=== PATIENT | female | born 1960 | race Caucasian/White ===

== ENCOUNTER → 2021-10-14 10:29 | Outpatient (CLI) | payer MEDICARE, SELFPAY ==
--- NOTE | 2021-10-14 | CA_ITS ---
APPROVED REPORT Exam: Pharmacologic Technologist: Sandra Hunter, Ht: 5 ft 7 in Wt: 308 lbs BSA: 2.43 m2 HR: 56 bpm BP: 136/80 mmHg Rhythm: SINUS NOLA, PAC, 1.6 SEC SINUS PAUSE Indications: CP, ABN EKG Medical History Medical History: HTN Medications: Metoprolol,,,,, Trazadone,,,,, Gabapentin,,,,, HCTZ,,,,, Citalopram,,,,, Zolpidem,,,,, PolyethYLENE GLYCOL,,,,, Allergies: No known drug allergies Cardiac Risk Factors: HTN, , Smoking Stress Test Details Test: LEXISCAN HR Resting HR: 57 bpm Max Heart Rate (APMHR): 158.635033 bpm Max HR Achieved: 81 bpm Target HR (85% APMHR): 134.602167 bpm % of APMHR: 51.27 Recovery HR: 65 bpm BP Resting BP: 136/80 mmHg Max BP: 145/75 mmHg Recovery BP: 144.0/77.0 mmHg ECG Resting ECG: SINUS NOLA, PAC, 1.6 SEC SINUS PAUSE Clinical Exercise duration: 04:12 min Highest Stage Achieved: Stress ECG Conclusion PT HAD SOA, AND HEAD DISCOMFORT. OCC PAC. NS T WAVE CHANGES INFERIORLY AND LATERALLY. NON-DIAGNOSTIC LEXISCAN STRESS. MYOVIEW IMAGES REPORTED SEPARATELY. Electronically signed by : Frantz Bautista MD 10/15/2021 10:53:51
--- NOTE | 2021-10-14 10:31 | CA_ITS ---
APPROVED REPORT EXAM: Comprehensive 2D, Doppler, and color-flow Echocardiogram Pediatric Lpn: Velia Orta CRT Ht: 5 ft 7 in Wt: 308lbs BSA: 2.43 BP: 145/76 mmHg Indications: Abnormal ECG, Chest Pain, Obesity, Hypertension/HDD, TOREY, SMOKER 2D Dimensions LVOT 1.86 cm (M/F) 1.5-2.5 LA Volume 66.70 mL LA Volume Index 27.40 mL/m2 (M/F) 16-34 M-Mode Dimensions RVDd 2.63 cm (0.9-2.6) LA Diam 4.66 cm (1.9-4.0) LVDd 5.69 cm (3.5-5.7) Ao Diam 4.49 cm (2.0-3.7) LVDs 4.04 cm (3.5-5.7) IVSd 2.34 cm (0.6-1.1) PWd 1.44 cm (0.6-1.1) EF (Teich) 55.00% FS 29.00% EDV (Teich) 159.40 mL TAPSE 1.74 (<1.7) ESV (Teich) 71.70 mL LV Diastology E Decel Time 213.00 (160-240 msec) E/A Ratio 1.65 MED E' 6.10 (< 7 cm/sec) MED A' 6.40 cm/s E'/MED E' Ratio 17.41 (>14) LAT E' 12.20 (<10 cm/sec) LAT A' 11.30 cm/s E/LAT E' Ratio 8.70 (>14) Aortic Valve AO Peak GR. 9.70 mmHg Mitral Valve MV E Max Evan. 106.00 (40-130 cm/s) MV A Velocity 64.00 (40-130 cm/s) E/A Ratio 1.65 MV Decel. Time 213.00 (160-240 ms) MV PHT 62.00 ms Pulmonary Valve PV Peak Velocity 136.00 (50-150 cm/s) Tricuspid Valve TR P. Velocity 294.00 cm/s RAP Estimate 10.00 mmHg RVSP 44.60 mmHg Left Ventricle Left atrium is moderately enlarged, left ventricle is normal size, estimated ejection fraction 55% with no regional wall motion abnormality, diastolic parameters are inconclusive. Right Ventricle Right atrium and right ventricle are normal size and contractility. Aortic Valve Aortic valve is grossly normal, there is no aortic stenosis or aortic insufficiency. Mitral Valve Mitral valve is minimally thickened, there is mild mitral regurgitation. Tricuspid Valve Tricuspid valve grossly normal, there is mild tricuspid regurgitation, calculated right ventricular systolic pressure 35 mmHg. Pulmonic Valve Pulmonic valve is poorly visualized. Great Vessels Aortic root is normal size. Inferior vena cava is poorly visualized. Pericardium No significant pericardial effusion noted. Conclusion 1. Moderately enlarged left atrium, normal left ventricular size, visually estimated ejection fraction 55% with no regional wall motion abnormality, diastolic parameters are inconclusive. 2. Mild mitral and tricuspid regurgitation, calculated right ventricular systolic pressure is 35 mmHg. 3. No significant pericardial effusion noted. 4. Inferior vena cava is poorly visualized. Electronically signed by : Frantz Bautista MD 10/15/2021 14:14:25
--- NOTE | 2021-10-14 11:13 | NM_ITS ---
APPROVED REPORT Exam: Nuclear Stress Test Patient Location: Outpatient Stress Tech: Akbar BENAVIDEZ Tech:TRUDY Gupta RT(R)(N) Ht: 5 ft 7 in Wt: 300 lbs Bra Size: DD HR: 57 bpm BP: 136/80 mmHg BSA: 2.40 m2 BMI: 46.9 Procedure: Patient received a 0.4 mg of intravenous Lexiscan, resting heart rate 57 bpm, resting blood pressure 136/80 mmHg, with Lexiscan maximum heart rate achived was 81 bpm which is 85 % of the maximum predicted heart rate and blood pressure was 145/75 mmHg. With Lexiscan, patient denied any complaint of chest pain. PT UNABLE TO LAY ON HER BELLY FOR PRONE IMAGES Electrocardiogram Resting electrocardiogram shows sinus rhythm, with Lexiscan there is less than 1.[address] segment depression noted from the baseline EKG. The EKG portion of the Lexiscan is nondiagnostic. Cardiac Stress and Resting SPECT Images: Cardiac Stress and Resting SPECT images were obtained using technetium 99m Myoview 31.9 mCi stress and 10.04 mCi at rest. Gated SPECT for analysis of segmental wall motion and calculation of the ejection fraction also done, prone images were not obtained. Cardiac stress and rest SPECT may show partial reversible defect involving the anterior wall and apex with normal contractility on the gated SPECT is likely secondary to soft tissue attenuation but possibility of ischemia cannot be excluded, this study is technically limited due to patient's body habitus. Computer derived ejection fraction is 61% with no regional wall motion abnormality, right ventricle is normal size and contractility. Conclusion: 1. The EKG portion of the Lexiscan is nondiagnostic. 2. Scintigraphic evidence of partial reversible defect involving the anterior and apical wall with normal contractility gated SPECT favor soft tissue attenuation, however presence of ischemia cannot be excluded, the study is technically limited due to patient's body habitus. Computer derived ejection fraction is 61% with no regional wall motion abnormality, right ventricle is normal size and contractility 3. Likely normal Lexiscan Myoview study. Electronically signed by : Frantz Bautista MD 10/15/2021 11:10:39
== END ==
PROVIDERS: PCP Family Medicine; Visit Provider Nurse Practitioner Family
DX: R06.00 Dyspnea, unspecified (principal); R07.9 Chest pain, unspecified; R94.31 Abnormal electrocardiogram [ECG] [EKG]
CPT/HCPCS: 78452; 93017; 93306; A9502; J2785

== ENCOUNTER → 2021-10-30 11:25 | Outpatient (CLI) | payer MEDICARE, SELFPAY ==
[2021-10-30 11:50] LABS: Basophils # 0.1 K/mm3 (0-0.2); Basophils % 1.5 % (0.1-2.0); Eosinophils # 0.2 K/mm3 (0.0-0.4); Eosinophils % 2.5 % (0.1-12.0); Hematocrit 39.3 % (37.0-47.0); Hemoglobin 13.5 g/dL (12.2-16.2); Lymphocytes # 2.9 K/mm3 (0.7-4.5); Lymphocytes % 30.4 % (10-50); Mean Corpuscular HGB Conc 34.3 g/dL (31.8-35.4); Mean Corpuscular Hemoglobin 32.8 pg (27.0-31.2); Mean Corpuscular Volume 95.6 fl (81-99); Monocytes # 0.6 K/mm3 (0.1-1.0); Monocytes % 5.9 % (1.7-9.3); Neutrophils # 5.6 K/mm3 (1.8-7.8); Neutrophils % 59.7 % (37.0-80.0); Platelet Count 318 K/mm3 (142-424); Red Blood Count 4.11 M/mm3 (4.20-5.40); White Blood Count 9.4 K/mm3 (4.8-10.8)
[2021-10-30 13:02] LABS: Anion Gap 9.5 mEq/L (5-15); Blood Urea Nitrogen 25 mg/dl (7-17); Calcium 9.8 mg/dl (8.4-10.2); Carbon Dioxide 27 mmol/L (22.0-30.0); Chloride 104 mmol/L (98-107); Estimated Glomerular Filt Rate 101 ml/min (>60); GFR (African American) 123 ML/MIN (>60); Glucose 85 mg/dl (74-100); Potassium 3.5 mmoL/L (3.5-5.1); Sodium 137 mmol/L (136-145)
== END ==
PROVIDERS: Visit Provider Internal Medicine
DX: G47.33 Obstructive sleep apnea (adult) (pediatric) (principal); I10 Essential (primary) hypertension; R07.9 Chest pain, unspecified; R94.30 Abnormal result of cardiovascular function study, unspecified; R94.31 Abnormal electrocardiogram [ECG] [EKG]; Z01.812 Encounter for preprocedural laboratory examination; Z11.52 Encounter for screening for COVID-19
CPT/HCPCS: 80048; 85025; C9803; U0003; U0005

== ENCOUNTER 2021-11-01 07:39 | Day surgery (SDC) | payer MEDICARE, SELFPAY ==
[2021-11-01] VITALS (11 sets, daily range): BP systolic 121–174; BP diastolic 68–87; PULSE 39–65; RESP 16–18; TEMP 36.6; O2SAT 91–98; BMI 46.6
--- NOTE | 2021-11-01 | IR_ITS ---
APPROVED REPORT Patient Location: Outpatient PROCEDURES Left heart catheterization Left ventriculogram Selective coronary angiogram INDICATION Angina pectoris, Abnormal Myoview Informed consent was obtained prior to the procedure. COMPLICATIONS None Estimated Blood Loss: Less than 10 mls TECHNIQUE One percent lidocaine used to anesthetize the right anterior aspect of the wrist. The right radial artery was accessed via the Seldinger technique. A 6 Liberian sheath was placed in the right radial artery. 2.5 mg of verapamil, 800 mcg of nitroglycerin, 1mg Lidocaine and 5000 U Heparin were given through the arterial sheath. The papa catheter was also used to perform left heart catheterization, left ventriculogram and selective coronary angiogram. At the end of the procedure the sheath was removed good hemostasis was achieved using Traclet band, patient was transferred to the postop holding area in stable condition. ANGIOGRAPHIC RESULTS The left main artery Normal The left anterior descending artery Has proximal 20 to 30% stenoses with a mid vessel 30% stenosis The circumflex artery Is nondominant and has diffuse 20 and 30% stenoses The right coronary artery There is a large dominant with a proximal 20 to 30% stenosis followed by a mostly eccentric 30 to 40% proximal stenosis. Distally there are additional 10 to 20% diffuse stenoses The RUIZ ventriculogram reveals Dilated ventricle preserved ejection fraction of 55% The left ventricular end-diastolic pressure 25 to 30 mmHg IMPRESSION Mild to moderate coronary artery disease Dilated ventricle with preserved ejection fraction accompanied by moderate to severely elevated LVEDP all consistent with diastolic dysfunction And postop recovery patient experienced bradycardia with heart rates in the 30s which appeared to be 2-1 AV block. It is possible this is Cadennke Bach. PLAN 1. Treatment of diastolic dysfunction 2. Avoidance of carbonated drinks 3. Holter monitor to better assess bradycardia. It appears as though patient is asymptomatic from a bradycardia standpoint however this should be watched closely Electronically signed by : Jorge Gonzalez MD 11/01/2021 17:36:31
== END 2021-11-01 15:39 | disposition home or self-care (01) ==
LOC: CATHLAB 07:41
PROVIDERS: PCP Family Medicine; Visit Provider Internal Medicine
DX: R94.39 Abnormal result of other cardiovascular function study (principal); G47.33 Obstructive sleep apnea (adult) (pediatric); I10 Essential (primary) hypertension; Z79.899 Other long term (current) drug therapy; I25.10 Atherosclerotic heart disease of native coronary artery without angina pectoris; F17.210 Nicotine dependence, cigarettes, uncomplicated
CPT/HCPCS: 93225; 93458; 99152; C1725; C1769; J1644; Q9967

== ENCOUNTER 2024-01-30 14:08 | Outpatient (CLI) | payer MEDICARE, SELFPAY ==
[2024-01-30 14:13] LABS: Microscopic, Urine URINE MICROSCOPIC (MICROSCOPIC)
[2024-01-30 14:57] LABS: Appearance,Urine CLEAR (Clear); Basophils # 0.1 K/mm3 (0-0.2); Basophils % 0.6 % (0.1-2.0); Bilirubin,Urine Negative (Negative); Blood, Urine TRACE-I (Negative); Color,Urine YELLOW (Yellow); Eosinophils # 0.2 K/mm3 (0.0-0.4); Eosinophils % 2.7 % (0.1-12.0); Glucose,Urine (UA) Negative (Negative); Hematocrit 38.5 % (37.0-47.0); Hemoglobin 12.9 g/dL (12.2-16.2); Ketones,Urine Negative (Negative); Leukocyte Esterase,Urine Negative (Negative); Lymphocytes # 2.2 K/mm3 (0.7-4.5); Lymphocytes % 25.3 % (10-50); Mean Corpuscular HGB Conc 33.5 g/dL (31.8-35.4); Mean Corpuscular Hemoglobin 31.4 pg (27.0-31.2); Mean Corpuscular Volume 93.9 fl (81-99); Mean Platelet Volume 7.7 fl (7.4-10.4); Monocytes # 0.6 K/mm3 (0.1-1.0); Monocytes % 6.6 % (1.7-9.3); Neutrophils # 5.5 K/mm3 (1.8-7.8); Neutrophils % 64.7 % (37.0-80.0); Nitrate,Urine Negative (Negative); Platelet Count 274 K/mm3 (142-424); Protein,Urine Negative (Negative); Urobilinogen,Urine 0.2 EU/dl (0.2); White Blood Count 8.5 K/mm3 (4.8-10.8)
[2024-01-30 15:11] LABS: Alanine Aminotransferase 22 U/L (12-78); Alkaline Phosphatase 165 U/L (38-126); Anion Gap 9.6 mEq/L (5-15); Aspartate Amino Transferase 28 U/L (14-36); Bilirubin,Indirect 0.7 mg/dL (0.0-0.9); Bilirubin,Total 0.7 mg/dl (0.2-1.3); Bilirubin,Unconjugated 0.8 mg/dL (0.0-1.1); Blood Urea Nitrogen 20 mg/dl (7-17); Calcium 10.2 mg/dl (8.4-10.2); Carbon Dioxide 28 mmol/L (22.0-30.0); Chloride 105 mmol/L (98-107); Chol/HDL Ratio 2.8 (1-3.5); Cholesterol 147 mg/dl (140-200); Estimated Glomerular Filt Rate 100 ml/min (>60); GFR (African American) 121 ML/MIN (>60); Glucose 101 mg/dl (74-100); HDL Cholesterol 52 mg/dl (40-60); Potassium 3.6 mmoL/L (3.5-5.1); Sodium 139 mmol/L (136-145); Total Protein,Serum 6.9 g/dl (6.3-8.2); Triglycerides 164 mg/dl (30-150); VLDL Cholesterol 33 mg/dL (0-40)
[2024-01-30 15:17] LABS: Bacteria,Urine Trace /lpf; RBC,Urine Occasional #/hpf (0-3)
[2024-01-30 15:22] LABS: Direct LDL Cholesterol 53.32 mg/dL (100-129)
[2024-01-30 15:27] LABS: Free T4 (Free Thyroxine) 1.16 ng/dl (0.78-2.19)
[2024-01-30 15:42] LABS: Thyroid Stimulating Hormone 1.32 uIU/mL (0.465-4.68)
== END 2024-01-30 23:59 | disposition home or self-care (01) ==
LOC: LAB 14:09
PROVIDERS: PCP Nurse Practitioner; Visit Provider Internal Medicine
DX: R06.00 Dyspnea, unspecified (principal); R42 Dizziness and giddiness; I25.10 Atherosclerotic heart disease of native coronary artery without angina pectoris; I51.89 Other ill-defined heart diseases; N39.0 Urinary tract infection, site not specified
CPT/HCPCS: 36415; 80048; 80061; 80076; 81001; 83735; 84439; 84443; 85025; 93225; 93227

== ENCOUNTER 2024-02-01 12:14 | Outpatient (CLI) | payer MEDICARE, SELFPAY | END 2024-02-01 23:59 | disposition home or self-care (01) | LOC: RT 12:15 | PROVIDERS: PCP Nurse Practitioner; Visit Provider Internal Medicine | DX: R06.00 Dyspnea, unspecified (principal); R42 Dizziness and giddiness | CPT/HCPCS: 93270 ==

== ENCOUNTER 2024-02-09 07:18 | Outpatient (CLI) | payer MEDICARE, SELFPAY ==
--- NOTE | 2024-02-09 | CA_ITS ---
APPROVED REPORT Exam: Pharmacologic Technologist: Jinny Ramesh, Ht: 5 ft 7 in Wt: 282 lbs BSA: 2.34 m2 HR: 40 bpm BP: 155/82 mmHg Rhythm: Sinus bradycardia Medical History Medications: Aspirin,,,,, Gabapentin,,,,, Atorvastatin,,,,, HCTZ,,,,, TorSEMIDE,,,,, Methenamine hippurate,,,,, Stress Test Details Test: LEXISCAN Reason for pharmacologic stress test: physical limitation. HR Resting HR: 45 bpm Max Heart Rate (APMHR): 155 bpm Max HR Achieved: 77 bpm Target HR (85% APMHR): 132 bpm % of APMHR: 50 Recovery HR: 57 bpm BP Resting BP: 155.0/82.0 mmHg Max BP: 155.0/82.0 mmHg Recovery BP: 140.0/71.0 mmHg ECG Resting ECG: Sinus bradycardia, PACs Stress ECG: No significant ST changes Arrhythmia: PACs, PVCs Clinical Exercise duration: 04:01 min Highest Stage Achieved: Exercise capacity: 1.0 METs Stress ECG Conclusion Symptoms: Head discomfort, headache. No CP. Arrhythmias/Ectopy: PAC, PVCs. ST-T Changes: No significant ST changes. Conclusion: Unremarkable Lexiscan stress test. Myoview images reported separately. Test Summary REST . . . . . . . Resting REST 07:02 . . 45 . 155/ 82 . . Stage 1 01:00 . . 65 . . . . Stage 2 01:00 . . 64 . . . . Stage 3 01:00 . . 59 . 136/ 74 . . Stage 4 01:00 . . 58 . 139/ 69 . . Stage 4 01:01 . . 57 . 139/ 69 . Stop exercise at 04:01 RECOVERY 01:00 . . 55 . 141/ 68 . . RECOVERY 02:00 . . 54 . 141/ 72 . . RECOVERY 03:00 . . 58 . 141/ 72 . . RECOVERY 03:26 . . 56 . 140/ 71 . . Electronically signed by : Brisa Canada MD 02/11/2024 20:30:20
--- NOTE | 2024-02-09 07:19 | NM_ITS ---
APPROVED REPORT Exam: Nuclear Stress Test Indication: cad, hyperlipidemia, tob use, fm hx, angina, sob Patient Location: Outpatient Stress Tech: Jinny Shen [facility] Tech:TRUDY Lindsey RT (R)(N)(M) Ht: 5 ft 7 in Wt: 282 lbs Bra Size: d HR: 45 bpm BP: 155/82 mmHg BSA: 2.34 m2 Rhythm: NSR TID: 1.09 BMI: 44.1 History: cad, hyperlipidemia, tob use, fm hx, angina, sob Procedure: Patient received 0.4 mg of intravenous Lexiscan, resting heart rate 45 bpm, resting blood pressure 155/82 mmHg, with Lexiscan maximum heart rate achieved was 77 bpm which is % of the maximum predicted heart rate and blood pressure was 155/82 mmHg. With Lexiscan, patient denied any complaint of chest pain. Cardiac Stress and Resting SPECT Images: Cardiac Stress and Resting SPECT images were obtained using technetium 99m Myoview 31.8 mCi stress and 10.39 mCi at rest. Resting and stress imaging in supine and prone positions demonstrate a medium-sized, moderate, predominantly fixed perfusion defect in the anterior and anteroseptal LV shook, as well as in the basal lateral LV wall. There is partial reversibility in the surrounding region. Gated imaging demonstrates normal global and regional LV systolic function. LVEF is calculated at 60%. Conclusion: Medium-sized, moderate, predominantly fixed perfusion defect in the anterior and anteroseptal LV shook, as well as in the basal lateral LV wall. There is partial reversibility in the surrounding region. Findings are suggestive of partial reversible perfusion defect. Gated imaging demonstrates normal global and regional LV systolic function. LVEF is calculated at 60%. Electronically signed by : Brisa Canada MD 02/11/2024 20:34:06
--- NOTE | 2024-02-09 07:19 | CA_ITS ---
APPROVED REPORT EXAM: Comprehensive 2D, Doppler, and color-flow Echocardiogram [employer] Analyst: Caroline Wiggins RT(R) Ht: 5 ft 7 in Wt: 282lbs BSA: 2.34 BP: 171/84 mmHg Indications: smoker, HTN, CAD, cp, h/o TOREY 2D Dimensions Left Atrium 4.94 cm F: 2.7 - 3.8 LA Volume 59.00 mL LVOT 1.97 cm (M/F) 1.5-2.5 LA Volume Index 25.21 mL/m2 (M/F) 16-34 EF AP4 66.20 % GL Strain -17.7 % M-Mode Dimensions RVDd 2.91 cm (0.9-2.6) LVDd 6.02 cm (3.5-5.7) Ao Diam 2.87 cm (2.0-3.7) LVDs 4.09 cm (3.5-5.7) IVSd 1.13 cm (0.6-1.1) PWd 0.99 cm (0.6-1.1) EF (Teich) 59.30% FS 32.10% EDV (Teich) 181.40 mL ESV (Teich) 73.80 mL LV Diastology E Decel Time 172 (160-240 msec) E/A Ratio 1.9 MED E' 6.2 (>= 7 cm/sec) E'/MED E' Ratio 14.55 (<= 14) LAT E' 11.3 (>= 10 cm/sec) E/LAT E' Ratio 7.98 (<= 14) Mitral Valve MV E Max Evan. 90.0 (40-130 cm/s) MV A Velocity 48.0 (40-130 cm/s) E/A Ratio 1.87 MV Decel. Time 172 (160-240 ms) Tricuspid Valve TR P. Velocity 288.00 cm/s RAP Estimate 10.00 mmHg RVSP 43.20 mmHg Left Ventricle The left ventricle is normal size. The left ventricular systolic function is normal. The left ventricular ejection fraction is within the normal range. There is increased LV wall thickness. There is normal LV segmental wall motion. Grade 2 diastolic dysfunction is present. LVEF is 55%. Right Ventricle The right ventricle is normal size. The right ventricular systolic function is normal. Atria Left atrium is severely dilated. Right atrium is severely dilated. There is no Doppler evidence of interatrial shunt. Aortic Valve The aortic valve is mildly thickened. There is no aortic valvular stenosis. Mild aortic regurgitation. Mitral Valve The mitral valve leaflets are mildly thickened. No evidence of mitral valve stenosis. Moderate mitral regurgitation. Tricuspid Valve The tricuspid valve leaflets are thin and pliable. Mild tricuspid regurgitation. RVSP is 25-30 mmHg. Pulmonic Valve The pulmonary valve is normal in structure. Trace pulmonic regurgitation. Great Vessels The aortic root is normal in size. The ascending aorta is normal in size. IVC is normal in size and collapses >50% with inspiration. Pericardium There is no pericardial effusion. Other Information Study Quality: Fair Conclusion Normal biventricular systolic function. Grade 2 diastolic dysfunction is present. Severe biatrial dilation. Moderate MR. Mild AI, mild TR. RVSP 25-30 mmHg. In the setting of diastolic dysfunction, biatrial dilation, and increased LV wall thickness, further evaluation for infiltrative disease is recommended with cardiac MRI (amyloidosis protocol) + PYP nuclear scan + amyloidosis lab testing. Serial TTE evaluations for moderate MR is also recommended. Electronically signed by : Brisa Canada MD 02/13/2024 09:10:58
[2024-02-09] MEDS: SODIUM CHLORIDE 0.9% 10ML SYR (RAD ONLY) 10 ML IV ×2 (07:25→08:25)
[2024-02-09] MEDS: REGADENOSON 0.4MG/5ML SYRINGE 0.4 MG IV (08:30)
[2024-02-09] MEDS: ISOTOPE MYOVIEW (PER STUDY) 1 DOSE IV (10:08)
== END 2024-02-09 23:59 | disposition home or self-care (01) ==
LOC: RAD 07:19
PROVIDERS: PCP Nurse Practitioner; Visit Provider Internal Medicine
DX: I25.118 Atherosclerotic heart disease of native coronary artery with other forms of angina pectoris (principal); R06.00 Dyspnea, unspecified; R42 Dizziness and giddiness; F17.210 Nicotine dependence, cigarettes, uncomplicated
CPT/HCPCS: 78452; 93017; 93018; 93306; A9502; J2785

== ENCOUNTER 2025-01-14 07:25 | Outpatient (CLI) | payer MEDICARE, SELFPAY ==
--- OUTSIDE RECORDS SUMMARY | 2025-01-14 07:27 | XMS_ITS | Clinical Summary ---
Author Organization [facility] Address [address] [place] [address] Phone Care Team Providers Care Research Chief Engineer Name Role Phone Blas Rodriguez MD Primary Care Provider [phone] Social History Tobacco Use Types Packs/Day Years Used Date Smoking Tobacco: Never Assessed Comments Unknown Sex and Gender Information Value Date Recorded Sex Assigned at Not on file Legal Sex Female 2:57 PM EDT Gender Identity Not on file Sexual Orientation Not on file Plan of Treatment Health Maintenance Due Date Last Done Comments Wellness Exam Medicare 1963 Hepatitis C Screening 1977 DTaP/TDaP/Td (1 - Tdap) 11/08/1997 11/07/1997 Cologuard 01/11/2004 FIT 01/11/2004 Sigmoidoscopy 01/11/2004 Virtual Colonography 01/11/2004 Pneumococcal Vaccine 50+ (1 of 1 - PCV) 2009 Zoster (1 of 2) 2009 Bone Density Screening 01/11/2024 COVID-19 Vaccine (3 - 2023-2 5 season) 2024 04/07/2021, 03/10/2021 Influenza Vaccine (#1) 2025 Breast Cancer Screening 05/12/2025 05/12/20 23, 08/13/2019, 04/25/2014 Colon Cancer Screening 06/15/2028 Colonoscopy 06/15/2028 06/15/2018 Hepatitis B Vaccine Aged Out No longe r eligible based on patient's age to complete this topic Meningococcal B Vaccine Aged Out No l onger eligible based on patient's age to complete this topic Procedures Procedure Name Priority Date/Time Associated Diagnosis Comments MM MAMMO DIGITAL JUDE SCREEN BILAT Routine 05/12/2023 10:00 AM EST Encounter for screening mammogram for malignant neoplasm of breast from Last 3 Months or Most Recently Relevant to Health Maintenance Results * MM MAMMO DIGITAL JUDE SCREEN BILAT (05/12/2023 10:00 AM EST) Anatomical Region Laterality Modality Breast Bilateral Mammography 05/15/2023 8:09 AM EST Impressions 05/15/2023 8:09 AM EST Negative ([id number]) ~ RECOMMENDATION: Routine screening mammogram in 1 year. ~ DISCLAIMER * Any patient with a palpable abnormality, unexplained by breast imaging, should be managed on clinical basis by the attending physician. * Breast imaging has a false negative rate of 15%. * The patient was notified by mail of the results of this examination. *The patient's information was entered into a reminder system with a target due date for the next mammogram, in accordance with the [employer] and the Society of Breast Imaging recommendations. Narrative 05/15/2023 8:09 AM EST Procedure:MM MAMMO DIGITAL JUDE SCREEN BILAT ~ Reason for exam: screening, asymptomatic. Z12.31-Encounter for screening mammogram for malignant neoplasm of [id number] ~ MM MAMMO DIGITAL JUDE SCREEN BILAT Bilateral CC and MLO view(s) were taken. There are scattered fibroglandular densities. Prior study comparison: Compared with prior studies the most recent being 08/13/19, 04/25/14 No mammographic evidence of malignancy. ~ Procedure Note Hunter Rader III, MD - 05/15/2023 Procedure:MM MAMMO DIGITAL JUDE SCREEN BILAT ~ Reason for exam: screening, asymptomatic. Z12.31-Encounter for screening mammogram for malignant neoplasm of [id number] ~ MM MAMMO DIGITAL JUDE SCREEN BILAT Bilateral CC and MLO view(s) were taken. There are scattered fibroglandular densities. Prior study comparison: Compared with prior studies the most recentbeing 08/13/19, 04/25/14 No mammographic evidence of malignancy. ~ IMPRESSION: Negative ([id number]-2) ~ RECOMMENDATION: Routine screening mammogram in 1 year. ~ DISCLAIMER * Any patient with a palpable abnormality, unexplained by breast imaging, should be managed on clinical basis by the attending physician. * Breast imaging has a false negative rate of 15%. * The patient was notified by mail of the results of this examination. *The patient's information was entered into a reminder system with atarget due date for the next mammogram, in accordance with the [employer] and the Society of Breast Imaging recommendations. Vy Ryan GEROPSYCHOLOGIST IMG MAMMOGRAPHY ORDERABLES Final Result from Last 3 Months or Most Recently Relevant to Health Maintenance Insurance [employer] MEDICARE PPO MR Care Teams Research Chief Engineer Relationship Specialty Start Date End Date Blas Rodriguez MD [address] [place] [address] PCP - General Family Medicine 04/02/14
--- OUTSIDE RECORDS SUMMARY | 2025-01-14 07:28 | XMS_ITS | Clinical Summary ---
Author Organization Healthcare Address [address] [place] [address] Care Team Providers Care Hydraulic Billet Maker Name Role Phone Esperanza Ryan APRN Primary Care Provider Allergies Active Allergy Reactions Criticality Noted Date Comments Sulfamethoxazole-Trimethoprim Rash Low 2023 Social History Tobacco Use Types Packs/Day Years Used Date Smoking Tobacco: Former Comments Unknown Sex and Gender Information Value Date Recorded Sex Assigned at Not on file Legal Sex Female 7:30 PM EDT Gender Identity Not on file Sexual Orientation Not on file Last Filed Vital Signs Vital Sign Reading Time Taken Comments Blood Pressure - - Pulse - - Temperature - - Respiratory Rate - - Oxygen Saturation - - Inhaled Oxygen Concentration - - Weight 140 kg (308 lb 10.3 oz) 06/14/2024 8:41 A M EST Height 167.6 cm (5' 6 ) 04/03/2017 1:58 PM EDT Body Mass Index 49.82 04/03/2017 1:58 PM EDT Plan of Treatment Health Maintenance Due Date Last Done Comments [facility]-Bone Density Scan 1959 [facility]-Depression Screening 1959 [facility]-Hepatitis C Screening 1959 [facility]-Medicare Annual Wellness (AWV) 1959 [facility]-/Child/Adol SDOH Screenings 1959 [facility]-Obesity Intervention 1965 [facility]- SDOH Screenings 1977 [facility]-Adult SDOH Screenings 1977 [facility]-Pneumococcal Vaccine: 50+ Years (1 of 2 - PCV) 1978 [facility]-DTaP,Tdap,and Td Vaccines (1 - Tdap) 11/08/1997 11/07/1997 CT Colonography 01/11/2004 Colonoscopy 01/11/2004 FIT-DNA 01/11/2004 FIT 01/11/2004 FOBT 01/11/2004 Sigmoidoscopy 01/11/2004 [facility]-Colorectal Cancer Screening 01/11/2004 [facility]-Zoster Vaccines (1 of 2) 2009 [facility]-RSV Vaccine: 60+ Years or (1 - Risk 60-74 years 1-dose series) 2019 [id number] Vaccine (3 - season) 2024 04/07/2021, 03/10/2021 [facility]-Influenza Vaccine (#1) 2025 [facility]-Breast Cancer Screening 05/12/202505/03, 05/12/2023, 08/13/2019, Additional history exists HPV Vaccines Aged Out No longer eligi ble based on patient's age to complete this topic [facility]-HIB Vaccines Aged Out No longer e ligible based on patient's age to complete this topic [facility]-Hepatitis A Vaccines Aged Out No longer eligible based on patient's age to complete this topic [facility]-IPV Vaccines Aged Out No longer e ligible based on patient's age to complete this topic UKY-Rotavirus Vaccines Aged Out No lo nger eligible based on patient's age to complete this topic [place] [address] [place] [address] MEDICARE Advance Directives Documents on File Type Date Recorded Patient Metal Tester Expl anation Power of Semiconductor Bonder 06/14/2024 Care Teams Hydraulic Billet Maker Relationship Specialty Start Date End Date Esperanza Ryan APRN [address] [place] [id number] PCP - General Equipment Detailer 06/14/24
--- OUTSIDE RECORDS SUMMARY | 2025-01-14 07:28 | XMS_ITS | Data Portability ---
Author Organization RIA INA Solis DOUGLAS CLOSED Address [address] [place] [address] Assessment Encounter Date Assessment Date Assessment LastModified by Organization Details LastModified Time 11/14/2024 11/14/2024 64-year-old fema le with a history of urgency incontinence presenting for follow-up. Post-Axonix implantation, her condition is stable. She has recurrent UTIs, but no recent episodes. Methenamine was ineffective due to side effects. Considering Eucora for UTI prevention, while continuing neuromodulation management for incontinence. Urgency Incontinence: Managed with Axonix neuromodulation. No new interventions required. Recurrent Urinary Tract Infections: Considering Eucora supplement due to methenamine intolerance. Monitor for infection signs. [email or web address] Not available 11/25/2024 15:47:23 Plan of Treatment Reminders Order Date Submit Date Provider Last Modified By Organization Details Last Modified Time Details Appointments RECHECK 2025 09:15A Ray OAKES MD Not available Not available Not available Lab urinalysi s panel, auto 2024 025 [facility] hospital [facility], [address] [place] [address] Rd, [address], [place], [address], 11/14/2024 09:19:03 culture, urine 2024 025 [facility], [address] [place] [address], [place], [address], 11/15/2024 11:14:42 urinalysi s panel, auto 2023 024 [facility], [address], [address], [place], [address], 12/17/2023 11:42:58 urinalysi s panel, auto 2023 024 [facility], [address], [address], [place], [address], 09/08/2023 11:42:58 urinalysi s panel, auto 2021 022 [facility], [address], [address], [place], [address], 06/19/2022 18:33:08 Referral None recorded. Procedures None recorded. Surgeries cystoscop y (SURG) 2023 024 [email or web address] [facility], [address], [address], [place], [address], 10/03/2023 09:49:53 Imaging None recorded. Medication Orders methenami ne hippurate 1 gram tablet 2023 024 [facility], [address] [place], [address], 09/08/2023 11:42:58 Patient TargetsNo targets recorded. Patient Instructions Encounter Date Encounter Id Patient Instructions Last Modified By Organization Details Last Modified Time 11/14/2024 [id number] - Consider tryin g Eucora supplement for urinary tract infection prevention. - Continue management with your current neuromodulation device for urgency incontinence. - Follow up yearly for assessment unless otherwise needed. - Monitor for any signs of urinary infection and report promptly. - Maintain hydration and consult if you experience any urinary symptoms or discomfort. [email or web address] Not available 11/14/2024 09:08:45 Reason for Referral None Reported. Results Created Date Observation Date Name Description Value Unit Range Abnormal Flag Note LastModifiedBy Organization Detail LastModifiedTime 06/16/20 22 06/16/2022 urina lysis panel , auto Unknown Analyte Clean Catch Not Available [facility] [address], [place], [address], 06/16/2022 08:31:17 06/16/20 22 06/16/2022 urina lysis panel , auto Unknown Analyte Yellow Not Available [facility] [address], [place], [address], 06/16/2022 08:31:17 06/16/20 22 06/16/2022 urina lysis panel , auto Unknown Analyte Clear Not Available [facility] [address], [place], [address], 06/16/2022 08:31:17 06/16/20 22 06/16/2022 urina lysis panel , auto Unknown Analyte 1.000 Not Available [facility] [address], [place], [address], 06/16/2022 08:31:17 06/16/20 22 06/16/2022 urina lysis panel , auto Unknown Analyte 1.003- 1.035 Not Available [facility] [address], [place], [address], 06/16/2022 08:31:17 06/16/20 22 06/16/2022 urina lysis panel , auto Unknown Analyte 7.0 Not Available [facility] [address], [place], [address], 06/16/2022 08:31:17 06/16/20 22 06/16/2022 urina lysis panel , auto Unknown Analyte 5.0-8. 0 Not Available [facility] [address], [place], [address], 06/16/2022 08:31:17 06/16/20 22 06/16/2022 urina lysis panel , auto Unknown Analyte Negati ve Not Available [facility] [address], [place], [address], 06/16/2022 08:31:17 06/16/20 22 06/16/2022 urina lysis panel , auto Unknown Analyte Negati ve Not Available [facility] [address], [place], [address], 06/16/2022 08:31:17 06/16/20 22 06/16/2022 urina lysis panel , auto Unknown Analyte Negati ve Not Available [facility] [address], [place], [address], 06/16/2022 08:31:17 06/16/20 22 06/16/2022 urina lysis panel , auto Unknown Analyte Negati ve Not Available [facility] [address], [place], [address], 06/16/2022 08:31:17 06/16/20 22 06/16/2022 urina lysis panel , auto Unknown Analyte Negati ve Not Available [facility] [address], [place], [address], 06/16/2022 08:31:17 06/16/20 22 06/16/2022 urina lysis panel , auto Unknown Analyte Negati ve Not Available [facility] [address], [place], [address], 06/16/2022 08:31:17 06/16/20 22 06/16/2022 urina lysis panel , auto Unknown Analyte Normal Not Available [facility] [address], [place], [address], 06/16/2022 08:31:17 06/16/20 22 06/16/2022 urina lysis panel , auto Unknown Analyte Normal Not Available [facility] [address], [place], [address], 06/16/2022 08:31:17 06/16/20 22 06/16/2022 urina lysis panel , auto Unknown Analyte Negati ve Not Available [facility] [address], [place], [address], 06/16/2022 08:31:17 06/16/20 22 06/16/2022 urina lysis panel , auto Unknown Analyte Negati ve Not Available [facility] [address], [place], [address], 06/16/2022 08:31:17 06/16/20 22 06/16/2022 urina lysis panel , auto Unknown Analyte Normal Not Available [facility] [address], [place], [address], 06/16/2022 08:31:17 06/16/20 22 06/16/2022 urina lysis panel , auto Unknown Analyte Normal 1 mg/dl Not Available [facility] [address], [place], [address], 06/16/2022 08:31:17 06/16/20 22 06/16/2022 urina lysis panel , auto Unknown Analyte Negati ve Not Available [facility] [address], [place], [address], 06/16/2022 08:31:17 06/16/20 22 06/16/2022 urina lysis panel , auto Unknown Analyte Negati ve Not Available [facility] [address], [place], [address], 06/16/2022 08:31:17 06/16/20 22 06/16/2022 urina lysis panel , auto Unknown Analyte Negati ve Not Available [facility] [address], [place], [address], 06/16/2022 08:31:17 06/16/20 22 06/16/2022 urina lysis panel , auto Unknown Analyte Negati ve Not Available [facility] [address], [place], [address], 06/16/2022 08:31:17 09/08/19 24 09/08/2023 urina lysis panel , auto Unknown Analyte Clean Catch Not Available [facility] [address], [place], [address], 09/08/2023 11:38:22 09/08/19 24 09/08/2023 urina lysis panel , auto Unknown Analyte Yellow Not Available [facility] [address], [place], [address], 09/08/2023 11:38:22 09/08/19 24 09/08/2023 urina lysis panel , auto Unknown Analyte Clear Not Available [facility] [address], [place], [address], 09/08/2023 11:38:22 09/08/19 24 09/08/2023 urina lysis panel , auto Unknown Analyte 1.000 Not Available [facility] [address], [place], [address], 09/08/2023 11:38:22 09/08/19 24 09/08/2023 urina lysis panel , auto Unknown Analyte 1.003- 1.035 Not Available [facility] [address], [place], [address], 09/08/2023 11:38:22 09/08/19 24 09/08/2023 urina lysis panel , auto Unknown Analyte 6.5 Not Available [facility] [address], [place], [address], 09/08/2023 11:38:22 09/08/19 24 09/08/2023 urina lysis panel , auto Unknown Analyte 5.0-8. 0 Not Available [facility] [address], [place], [address], 09/08/2023 11:38:22 03/08/09/08/2023 urina lysis panel , auto Unknown Analyte 500 Marycarmen/ul (++) Not Available [facility] [address], [place], [address], 09/08/2023 11:38:22 09/08/19 24 09/08/2023 urina lysis panel , auto Unknown Analyte Negati ve Not Available [facility] [address], [place], [address], 09/08/2023 11:38:22 09/08/19 24 09/08/2023 urina lysis panel , auto Unknown Analyte Negati ve Not Available [facility] [address], [place], [address], 09/08/2023 11:38:22 09/08/19 24 09/08/2023 urina lysis panel , auto Unknown Analyte Negati ve Not Available [facility] [address], [place], [address], 09/08/2023 11:38:22 09/08/19 24 09/08/2023 urina lysis panel , auto Unknown Analyte Negati ve Not Available [facility] [address], [place], [address], 09/08/2023 11:38:22 09/08/19 24 09/08/2023 urina lysis panel , auto Unknown Analyte Negati ve Not Available [facility] [address], [place], [address], 09/08/2023 11:38:22 09/08/19 24 09/08/2023 urina lysis panel , auto Unknown Analyte Normal Not Available [facility] [address], [place], [address], 09/08/2023 11:38:22 09/08/19 24 09/08/2023 urina lysis panel , auto Unknown Analyte Normal Not Available [facility] [address], [place], [address], 09/08/2023 11:38:22 09/08/19 24 09/08/2023 urina lysis panel , auto Unknown Analyte Negati ve Not Available [facility] [address], [place], [address], 09/08/2023 11:38:22 09/08/19 24 09/08/2023 urina lysis panel , auto Unknown Analyte Negati ve Not Available [facility] [address], [place], [address], 09/08/2023 11:38:22 09/08/19 24 09/08/2023 urina lysis panel , auto Unknown Analyte Normal Not Available [facility] [address], [place], [address], 09/08/2023 11:38:22 09/08/19 24 09/08/2023 urina lysis panel , auto Unknown Analyte Normal 1 mg/dl Not Available [facility] [address], [place], [address], 09/08/2023 11:38:22 09/08/19 24 09/08/2023 urina lysis panel , auto Unknown Analyte Negati ve Not Available [facility] [address] [facility] [address], [place], [address], 09/08/2023 11:38:22 09/08/19 24 09/08/2023 urina lysis panel , auto Unknown Analyte Negati ve Not Available [facility] [address] [facility] [address], [place], [address], 09/08/2023 11:38:22 09/08/19 24 09/08/2023 urina lysis panel , auto Unknown Analyte Trace Not Available [facility] [address] [facility] [address], [place], [address], 09/08/2023 11:38:22 09/08/19 24 09/08/2023 urina lysis panel , auto Unknown Analyte Negati ve Not Available [facility] [address] [facility] [address], [address], 09/08/2023 11:38:22 10/20/19 24 10/20/2023 urina lysis panel , auto Unknown Analyte Clean Catch Not Available [facility] [address], [address], 10/20/2023 12:39:32 10/20/19 24 10/20/2023 urina lysis panel , auto Unknown Analyte Yellow Not Available [facility] [address], [address], 10/20/2023 12:39:32 10/20/19 24 10/20/2023 urina lysis panel , auto Unknown Analyte Cloudy Not Available [facility] [address], [address], 10/20/2023 12:39:32 10/20/19 24 10/20/2023 urina lysis panel , auto Unknown Analyte 1.[address] [facility] [address] [place] [address], [address], 10/20/2023 12:39:32 10/20/19 24 10/20/2023 urina lysis panel , auto Unknown Analyte 1.003- 1.035 Not Available [facility] [address] [place] [address], [place], [address], 10/20/2023 12:39:32 10/20/19 24 10/20/2023 urina lysis panel , auto Unknown Analyte 7.[address] [facility] [address] [place] [address], [address], 10/20/2023 12:39:32 10/20/19 24 10/20/2023 urina lysis panel , auto Unknown Analyte 5.0-8. 0 Not Available [facility] [address] [place] [address], [place], [address], 10/20/2023 12:39:32 10/20/19 24 10/20/2023 urina lysis panel , auto Unknown Analyte 75 Marycarmen/ul (+) Not Available [facility] [address] [place] [address], [address], 10/20/2023 12:39:32 10/20/19 24 10/20/2023 urina lysis panel , auto Unknown Analyte Negati ve Not Available [facility] [address] [place] [address], [address], 10/20/2023 12:39:32 10/20/19 24 10/20/2023 urina lysis panel , auto Unknown Analyte Negati ve Not Available [facility] [address] [place] [address], [address], 10/20/2023 12:39:32 10/20/19 24 10/20/2023 urina lysis panel , auto Unknown Analyte Negati ve Not Available [facility] [address] [place] [address], [place], [address], 10/20/2023 12:39:32 10/20/19 24 10/20/2023 urina lysis panel , auto Unknown Analyte Negati ve Not Available [facility] [address] [place] [address], [place], [address], 10/20/2023 12:39:32 10/20/19 24 10/20/2023 urina lysis panel , auto Unknown Analyte Negati ve Not Available [facility] [address] [place] [address], [address], 10/20/2023 12:39:32 10/20/19 24 10/20/2023 urina lysis panel , auto Unknown Analyte Normal Not Available [facility] [address] [place] [address], [address], 10/20/2023 12:39:32 10/20/19 24 10/20/2023 urina lysis panel , auto Unknown Analyte Normal Not Available [facility] [address] [place] [address], [address], 10/20/2023 12:39:32 10/20/19 24 10/20/2023 urina lysis panel , auto Unknown Analyte Negati ve Not Available [facility] [address] [place] [address], [address], 10/20/2023 12:39:32 10/20/19 24 10/20/2023 urina lysis panel , auto Unknown Analyte Negati ve Not Available [facility] [address] [place] [address], [address], 10/20/2023 12:39:32 10/20/19 24 10/20/2023 urina lysis panel , auto Unknown Analyte Normal Not Available [facility] [address] [place] [address], [place], [address], 10/20/2023 12:39:32 10/20/19 24 10/20/2023 urina lysis panel , auto Unknown Analyte Normal 1 mg/dl Not Available [facility] [address] [place] [address], [place], [address], 10/20/2023 12:39:32 10/20/19 24 10/20/2023 urina lysis panel , auto Unknown Analyte Negati ve Not Available [facility] [address] [place] [address], [address], 10/20/2023 12:39:32 10/20/19 24 10/20/2023 urina lysis panel , auto Unknown Analyte Negati ve Not Available [facility] [address] [place] [address], [place], [address], 10/20/2023 12:39:32 10/20/19 24 10/20/2023 urina lysis panel , auto Unknown Analyte 50 Soren/ul Not Available [facility] [address] [place] [address], [address], 10/20/2023 12:39:32 10/20/19 24 10/20/2023 urina lysis panel , auto Unknown Analyte Negati ve Not Available [facility] [address] [place] [address], [address], 10/20/2023 12:39:32 12/14/19 24 12/14/2023 urina lysis panel , auto Unknown Analyte Clean Catch Not Available [facility] [address] [facility] [address], [place], [address], 12/14/2023 09:46:57 12/14/19 24 12/14/2023 urina lysis panel , auto Unknown Analyte Yellow Not Available [facility] [address], [place], [address], 12/14/2023 09:46:57 12/14/19 24 12/14/2023 urina lysis panel , auto Unknown Analyte Clear Not Available [facility] [address], [place], [address], 12/14/2023 09:46:57 12/14/19 24 12/14/2023 urina lysis panel , auto Unknown Analyte 1.000 Not Available [facility] [address], [place], [address], 12/14/2023 09:46:57 12/14/19 24 12/14/2023 urina lysis panel , auto Unknown Analyte 1.003- 1.035 Not Available [facility] [address], [place], [address], 12/14/2023 09:46:57 12/14/19 24 12/14/2023 urina lysis panel , auto Unknown Analyte 6.5 Not Available [facility] [address], [place], [address], 12/14/2023 09:46:57 12/14/19 24 12/14/2023 urina lysis panel , auto Unknown Analyte 5.0-8. 0 Not Available [facility] [address], [place], [address], 12/14/2023 09:46:57 12/14/19 24 12/14/2023 urina lysis panel , auto Unknown Analyte Negati ve Not Available [facility] [address], [place], [address], 12/14/2023 09:46:57 12/14/19 24 12/14/2023 urina lysis panel , auto Unknown Analyte Negati ve Not Available [facility] [address], [place], [address], 12/14/2023 09:46:57 12/14/19 24 12/14/2023 urina lysis panel , auto Unknown Analyte Negati ve Not Available [facility] [address], [place], [address], 12/14/2023 09:46:57 12/14/1912/14/2023 urina lysis panel , auto Unknown Analyte Negati ve Not Available [facility] [address], [place], [address], 12/14/2023 09:46:57 12/14/19 24 12/14/2023 urina lysis panel , auto Unknown Analyte Negati ve Not Available [facility] [address], [place], [address], 12/14/2023 09:46:57 12/14/19 24 12/14/2023 urina lysis panel , auto Unknown Analyte Negati ve Not Available [facility] [address], [place], [address], 12/14/2023 09:46:57 12/14/19 24 12/14/2023 urina lysis panel , auto Unknown Analyte Normal Not Available [facility] [address], [place], [address], 12/14/2023 09:46:57 12/14/19 24 12/14/2023 urina lysis panel , auto Unknown Analyte Normal Not Available [facility] [address], [place], [address], 12/14/2023 09:46:57 12/14/19 24 12/14/2023 urina lysis panel , auto Unknown Analyte Negati ve Not Available [facility] [address], [place], [address], 12/14/2023 09:46:57 12/14/19 24 12/14/2023 urina lysis panel , auto Unknown Analyte Negati ve Not Available [facility] [address], [place], [address], 12/14/2023 09:46:57 12/14/19 24 12/14/2023 urina lysis panel , auto Unknown Analyte Normal Not Available [facility] [address], [place], [address], 12/14/2023 09:46:57 12/14/19 24 12/14/2023 urina lysis panel , auto Unknown Analyte Normal 1 mg/dl Not Available [facility] [address], [place], [address], 12/14/2023 09:46:57 12/14/19 24 12/14/2023 urina lysis panel , auto Unknown Analyte Negati ve Not Available [facility] [address], [place], [address], 12/14/2023 09:46:57 12/14/19 24 12/14/2023 urina lysis panel , auto Unknown Analyte Negati ve Not Available [facility] [address], [place], [address], 12/14/2023 09:46:57 12/14/19 24 12/14/2023 urina lysis panel , auto Unknown Analyte Negati ve Not Available [facility] [address], [address], 12/14/2023 09:46:57 12/14/19 24 12/14/2023 urina lysis panel , auto Unknown Analyte Negati ve Not Available [facility] [address], [address], 12/14/2023 09:46:57 11/15/19 25 11/14/2024 URINE CULTU RE escherichia coli Organi sm: Escher ichia coli Not Available [facility] [address] [place] [address], [address], 11/16/2024 14:38:58 11/15/1911/16/2024 URINE CULTU RE urine culture abnormal ISOLA TE #1 COLON Y COUNT : > 100,0 00 CFU/M L Proba ble Gram Negat linn Bacil carlos. ID and sensi tivit y in progr ess. See Mize te Resul t(s) Below Esche deirdre a coli Not Available [facility] [address] [place] [address], [address], 11/16/2024 14:38:58 11/15/19 25 11/16/2024 URINE CULTU RE amox/K clav'ate(C) <=8/4 ug/mL susceptib le Not Available [facility] [address] [place] [address], [address], 11/16/2024 14:38:58 11/15/19 25 11/16/2024 URINE CULTU RE ampicillin <=8 ug/mL susceptib le Not Available [facility] [address] [place] [address], [address], 11/16/2024 14:38:58 11/15/19 25 11/16/2024 URINE CULTU RE cefazolin <=2 ug/mL susceptib le Not Available [facility] [address] [place] [address], [address], 11/16/2024 14:38:58 11/15/19 25 11/16/2024 URINE CULTU RE ceftazidime <=1 ug/mL susceptib le Not Available [facility] [address] [place] [address], [address], 11/16/2024 14:38:58 11/15/19 25 11/16/2024 URINE CULTU RE ceftriaxone <=1 ug/mL susceptib le Not Available [facility] [address] [place] [address], [address], 11/16/2024 14:38:58 11/15/19 25 11/16/2024 URINE CULTU RE cefuroxime <=4 ug/mL susceptib le Not Available [facility] [address] [place] [address], [address], 11/16/2024 14:38:58 11/15/19 25 11/16/2024 URINE CULTU RE ciprofloxaci n <=0.25 ug/mL susceptib le Not Available [facility] [address] [place] [address], [address], 11/16/2024 14:38:58 11/15/19 25 11/16/2024 URINE CULTU RE gentamicin <=4 ug/mL susceptib le Not Available [facility] [address] [place] [address], [address], 11/16/2024 14:38:58 11/15/19 25 11/16/2024 URINE CULTU RE imipenem <=1 ug/mL susceptib le Not Available [facility] [address] [place] [address], [address], 11/16/2024 14:38:58 11/15/19 25 11/16/2024 URINE CULTU RE levofloxacin <=0.5 ug/mL susceptib le Not Available [facility] [address] [place] [address], [address], 11/16/2024 14:38:58 11/15/19 25 11/16/2024 URINE CULTU RE nitrofuranto in <=32 ug/mL susceptib le Not Available [facility] [address] [place] [address], [address], 11/16/2024 14:38:58 11/15/19 25 11/16/2024 URINE CULTU RE piperacillin /inna <=16 ug/mL susceptib le Not Available [facility] [address] [place] [address], [address], 11/16/2024 14:38:58 11/15/19 25 11/16/2024 URINE CULTU RE tetracycline <=4 ug/mL susceptib le Not Available [facility] [address] [place] [address], [address], 11/16/2024 14:38:58 11/15/19 25 11/16/2024 URINE CULTU RE tobramycin <=2 ug/mL susceptib le Not Available [facility] [address] [place] [address], [address], 11/16/2024 14:38:58 05/11/16/2024 URINE CULTU RE trimeth/sulf a <=2/38 ug/mL susceptib le Not Available [facility] [address] [facility], [place], [address], 11/16/2024 14:38:58 11/15/19 25 11/14/2024 urina lysis panel , auto Unknown Analyte Clean Catch Not Available [facility] [address], [place], [address], 11/14/2024 08:49:57 11/15/1911/14/2024 urina lysis panel , auto Unknown Analyte Yellow Not Available [facility] [address], [place], [address], 11/14/2024 08:49:57 11/15/1911/14/2024 urina lysis panel , auto Unknown Analyte Clear Not Available [facility] [address] [place] [address] [address], [address], 11/14/2024 08:49:57 11/15/19 25 11/14/2024 urina lysis panel , auto Unknown Analyte 1.000 Not Available [facility] [address], [address], 11/14/2024 08:49:57 11/15/19 25 11/14/2024 urina lysis panel , auto Unknown Analyte 1.003 - 1.030 Not Available [facility] [address], [address], 11/14/2024 08:49:57 11/15/19 25 11/14/2024 urina lysis panel , auto Unknown Analyte 7.0 Not Available [facility] [address], [place], [address], 11/14/2024 08:49:57 11/15/19 25 11/14/2024 urina lysis panel , auto Unknown Analyte 5.0 - 8.0 Not Available [facility] [address] [facility] [address], [place], [address], 11/14/2024 08:49:57 11/15/19 25 11/14/2024 urina lysis panel , auto Unknown Analyte Negati ve Not Available [facility] [address] [facility] [address], [place], [address], 11/14/2024 08:49:57 11/15/19 25 11/14/2024 urina lysis panel , auto Unknown Analyte Negati ve Not Available [facility] [address] [facility] [address], [place], [address], 11/14/2024 08:49:57 11/15/19 25 11/14/2024 urina lysis panel , auto Unknown Analyte POSITI VE (Abnor mal) Not Available [facility] [address] [facility] [address], [place], [address], 11/14/2024 08:49:57 11/15/19 25 11/14/2024 urina lysis panel , auto Unknown Analyte Negati ve Not Available [facility] [address] [facility] [address], [place], [address], 11/14/2024 08:49:57 11/15/19 25 11/14/2024 urina lysis panel , auto Unknown Analyte Negati ve Not Available [facility] [address], [place], [address], 11/14/2024 08:49:57 11/15/19 25 11/14/2024 urina lysis panel , auto Unknown Analyte Negati ve Not Available [facility] [address], [place], [address], 11/14/2024 08:49:57 11/15/19 25 11/14/2024 urina lysis panel , auto Unknown Analyte Normal Not Available [facility] [address], [place], [address], 11/14/2024 08:49:57 11/15/19 25 11/14/2024 urina lysis panel , auto Unknown Analyte Normal Not Available [facility] [address], [place], [address], 11/14/2024 08:49:57 11/15/19 25 11/14/2024 urina lysis panel , auto Unknown Analyte Negati ve Not Available [facility] [address], [place], [address], 11/14/2024 08:49:57 11/15/19 25 11/14/2024 urina lysis panel , auto Unknown Analyte Negati ve Not Available [facility] [address], [place], [address], 11/14/2024 08:49:57 11/15/19 25 11/14/2024 urina lysis panel , auto Unknown Analyte Normal Not Available [facility] [address] [facility] [address], [place], [address], 11/14/2024 08:49:57 11/15/1911/14/2024 urina lysis panel , auto Unknown Analyte Normal Not Available [facility] [address] [place] [address] [address], [place], [address], 11/14/2024 08:49:57 11/15/19 25 11/14/2024 urina lysis panel , auto Unknown Analyte Negati ve Not Available [facility] [address] [place] [address] [address], [place], [address], 11/14/2024 08:49:57 11/15/19 25 11/14/2024 urina lysis panel , auto Unknown Analyte Negati ve Not Available [facility] [address], [place], [address], 11/14/2024 08:49:57 11/15/1911/14/2024 urina lysis panel , auto Unknown Analyte 50 Soren/uL Not Available [facility] [address], [place], [address], 11/14/2024 08:49:57 11/15/1911/14/2024 urina lysis panel , auto Unknown Analyte Negati ve Not Available [facility] [address], [address], 11/14/2024 08:49:57 Result Notes None recorded. Problems Name Problem SNOMED Code Status Onset Date Resolution Date Notes Provider Name and Address Organization Details Recorded Time Urinary tract infectious disease 01110746 Active 2016 SACHIN OAKES JR, MD [address] [place], [address], [facility] 7 13:33:15 Retention of urine 131898833 Active 2016 SACHIN OAKES JR, MD [facility] [place], [address], [facility] 7 13:33:17 Recurrent urinary tract infection 266289439 Active 2016 SACHIN OAKES JR, MD [facility] [place], [address], [facility] 7 13:33:19 Maintenance of device Active 2021 SACHIN OAKES JR, MD [facility] [place], [address], [facility] 2 12:15:21 Bacteriuria 98389915 Active 2023 SACHIN OAKES JR, MD [facility] [place], [address], [facility] 4 09:39:23 Urethral stenosis 281559519 Active 2023 SACHIN OAKES JR, MD [facility] [place], [address], [facility] 4 12:43:46 Problem Notes None recorded. Procedures Surgical History Date Name Laterality Status Provider Name and Address Organization Details Recorded Time 024 Urethral Dilation, Female completed SACHIN OAKES JR, MD [facility] [place], [address], [facility] 10/20/2023 12:43:31 024 Cystoscopy - female completed SACHIN OAKES JR, MD [facility] [place], [address], [facility] 10/20/2023 12:43:11 022 Peripheral Neurostimulator Analysis completed Sugar Zaragoza [facility] 03/31/2022 10:26:42 022 Unlisted px posterior segmnt completed Alycia Mitchell [facility] 04/01/2022 09:42:53 017 Peripheral Neurostimulator Analysis completed Sugar Zaragoza [facility] 07/15/2016 12:44:31 017 Post Void Residual; Catheter completed Sugar Zaragoza [facility] 07/15/2016 12:32:04 cholecystectomy completed Alycia Adair [facility] 04/01/2022 09:43:06 Gastric bypass for obesity completed Alycia Mitchell [facility] 04/01/2022 09:43:20 Imaging Results None recorded. Procedure Notes None recorded. Medical Equipment None Reported. Allergies Allergen ID Allergen Name Allergen Category Reaction Reaction Severity Criticality Documentation Date Start Date Code Code System Note Provider Name and Address Organization Details Recorded Time 474221 Bactrim medicatio n Not available Not available Not available 04/01/2022 63245 9 RxNorm Alycia Mitchell raheem [facility] 09:41:47 Medications Name Sig Start Date Stop Date Status Note LastModified by Organization Details LastModified Time cyclobenz aprine 10 mg tablet active Medicati on Descript ion: cycloben zaprine; Route:or al; refills: 0 Not Available Not Available Not Available atorvasta tin 20 mg tablet TAKE ONE (1) TABLET EVERY DAY BY ORAL ROUTE AT BEDTIME. active Not Available Not Available No t Available Neurontin 300 mg capsule Bedtime active Instruct ions: 1 hs for nerve pain. May ^ q 7d if needed to 2 hs; 1 am, 2 hs; 2 am, 2 hs ;Frequen cy: hs;Medic ation Descript ion: gabapent in; Dosage:1 ; Route:or al; refills: 5; Quantity :30 capsule Not Available Not Available Not Available torsemide 20 mg tablet TAKE ONE (1) TABLET EVERY DAY BY ORAL ROUTE FOR 90 DAYS. active Not Available Not Available No t Available citalopra m 40 mg tablet TAKE ONE TABLET BY MOUTH EVERY DAY active Not Available Not Available No t Available trazodone 50 mg tablet TAKE ONE (1) TABLET EVERY DAY BY ORAL ROUTE AT BEDTIME FOR 30 DAYS. 04/01 completed Not Available Not Available Not Available ibuprofen 800 mg tablet Every six hours 04/01 completed Duration : 30 days;Justen quency: q6h;Medi cation Descript ion: ibuprofe n; Dosage:1 ; Route:or al; refills: 0; Quantity :60 tablet Not Available Not Available Not Available ampicilli n 500 mg capsule Take 1 capsule twice a day by oral route as directed for 20 days. 2016 active Not Available Not Available Not Avai lable gabapenti n 400 mg capsule TAKE ONE (1) CAPSULE TWICE A DAY BY ORAL ROUTE FOR 30 DAYS. active Not Available Not Available No t Available Nitrofura ntoin Monohyd Macro 100 mg capsule Four times a day active Duration : 10 days;Justen quency: qid;Medi cation Descript ion: nitrofur antoin; Route:or al; refills: 0; Quantity :40 capsule Not Available Not Available Not Available trimethop rim 100 mg tablet Take 1 tablet every day by oral route for 30 days. 04/01 completed Not Available Not Available Not Available aspirin 81 mg tablet,de layed release TAKE ONE (1) TABLET EVERY DAY BY ORAL ROUTE. active Not Available Not Available No t Available meloxicam 7.5 mg tablet active Medicati on Descript ion: meloxica m; Route:or al; refills: 0 Not Available Not Available Not Available methenami ne hippurate 1 gram tablet Take 1 tablet twice a day by oral route. 2023 active Not Available Not Available Not Avai lable citalopra m 20 mg tablet active Medicati on Descript ion: citalopr am; Route:or al; refills: 0 Not Available Not Available Not Available doxycycli ne monohydra te 100 mg capsule Take 1 capsule twice a day by oral route. 2024 active Not Available Not Available Not Avai lable metoprolo l tartrate 50 mg tablet active Medicati on Descript ion: metoprol ol; Route:or al; refills: 0 Not Available Not Available Not Available hydrochlo rothiazid e 25 mg tablet TAKE ONE (1) TABLET TWICE A DAY BY ORAL ROUTE NEEDED FOR 90 DAYS. active Not Available Not Available No t Available metoprolo l succinate ER 25 mg tablet,ex tended release 24 hr TAKE ONE (1) TABLET BY MOUTH EVERY DAY active Not Available Not Available No t Available polyethyl wilbert glycol 3350 17 gram/dose oral powder TAKE 17 G EVERY DAY BY ORAL ROUTE NEEDED. 09/30 /2022 completed Not Available Not Available Not Available Ciprodex 0.3 %-0.1 % ear drops,pooja pension INSTILL FOUR (4) DROPS INTO AFFECTED EAR(S) BY OTIC ROUTE TWO (2) TIMES PER DAY FOR 7 DAYS active Not Available Not Available No t Available ketorolac 0.4 % eye drops STARTING THREE (3) DAYS BEFORE SURGERY INSTILL ONE (1) DROP INTO THE OPERATIV E EYE FOUR (4) TIMES DAILY FOR 10 DAYS THEN DECREASE TO TWICE DAILY FOR 14 DAYS THEREAFT ER. 04/01 completed Not Available Not Available Not Available nitrofura ntoin monohydra te/macroc rystals 100 mg capsule TAKE ONE (1) CAPSULE (100 MG) BY ORAL ROUTE TWO (2) TIMES PER DAY WITH FOOD FOR 7 DAYS 04/01 completed Not Available Not Available Not Available Vitals Date Recorded Body height Body mass index (BMI) Body weight Provider Name and Address Organization Details Last Updated DateTime 09/08/2023 170.18 cm 42.6 kg/m2 274797.12 g Prosper Farooq [facility] 09/08/2023 15:58:45 Date Recorded Body height Body mass index (BMI) Body weight Provider Name and Address Organization Details Last Updated DateTime 11/14/2024 170.18 cm 43.7 kg/m2 827688.27 g Samara Weiss [facility] 11/14/2024 08:58:16 Date Recorded Body height Body mass index (BMI) Body weight Provider Name and Address Organization Details Last Updated DateTime 12/14/2023 170.18 cm 42.6 kg/m2 492034.12 g Meghana Zaragoza [facility] 12/14/2023 09:46:30 Social History Question Answer Notes LastModified by Organizat ion Details LastModified Time Tobacco Smoking Status Former Smoker Max maciel [facility] 07/15/2016 12:19:07 Marital Status Informati on not available 07/15/2016 What Was The Date Of Your Most Recent Tobacco Screening? 11/14/2024 Information not available 11/14/2024 What Is Your Relationship Status? [email or web address] Information not available 04/01/2022 Sex: Female Functional Status Question Answer Note LastModified by Organization D etails LastModified Time What is your level of alcohol consumption? None Information not available 07/15/2016 Mental Status None recorded. Family History Relationship Description Onset Age of this Age Resolved Age Notes LastModified by Organization Details LastModified Time Father Diabetes mellitus [email or web address] Not available 07/03 12:18:56 Medical History Condition Response Depression Y Anxiety Disorder Y Arthritis Y Hypertension Y Gynecological HistoryNo gynecological history recorded. Obstetrics History GPAL:G 0 P 0 0 0 0 Past Encounters Encounter ID Performer Location Encounter Start Date Encounter Closed Date Diagnosis/Indication Diagnosis SNOMED-CT Code Diagnosis ICD10 Code Diagnosis Note [id number] MD MAGNOLIA BARBA JR, [facility] [address] [address] 07/15/2016 11:56:24 07/18/2016 09:57:39 Urinary tract infectious disease 89767739 N39.0 Retention of urine 06255 4002 R33.9 Recurrent urinary tract infection 437454376 N39.0 [id number] SACHIN OAKES JR, MD [facility] [address] [place] [address] 03/31/2022 08:53:59 03/31/2022 12:53:54 Recurrent urinary tract infection 482044639 N39.0 Retention of urine 13658 4002 R33.9 Maintenance of device 13 6614697 Z45.1 [id number] SACHIN OAKES JR, MD SURGERY SCHEDULE [address] [place] [address] 04/29/2022 13:38:30 04/29/2022 13:41:08 [id number] SACHIN OAKES JR, MD SURGERY SCHEDULE [address] [place] [address] 05/13/2022 12:05:51 05/13/2022 12:06:20 [id number] SACHIN OAKES JR, MD [facility] [address] [place] [address] 06/16/2022 08:16:10 06/16/2022 14:10:15 Maintenance of device 152604713 Z45.1 Retention of urine 14626 4002 R33.9 [id number] SACHIN OAKES JR, MD [facility] [address] 09/08/2023 11:11:51 09/08/2023 13:06:30 Recurrent urinary tract infection 511417623 N39.0 ' Bacteriuria 48849831 R82 .71 Maintenance of device 13 4905038 Z45.1 [id number] SACHIN OAKES JR, MD SURGERY SCHEDULE [address] [place] [address] 10/20/2023 10:42:58 10/20/2023 10:43:41 Recurrent urinary tract infection 518217706 N39.0 ' Urethral stenosis 026025 003 N35.92 [id number] SACHIN OAKES JR, MD [facility] [address] [address] 12/14/2023 09:18:06 12/18/2023 04:02:52 Recurrent urinary tract infection 404082721 N39.0 ' Bacteriuria 65486334 R82 .71 Retention of urine 87032 4002 R33.9 [id number] SACHIN OAKES JR, MD MAG[facility]OLIA [facility] [address] [address] 11/14/2024 08:28:52 11/14/2024 09:24:34 Acute urinary tract infection 987524416 N39.0 Maintenance of device 13 6407976 Z45.1 Urge incon tinence of urine 99178198 N39.41 Health Concerns Section Related Observation LastModified by Organization Detai ls LastModified Time None Recorded Concern Status LastModified by Organization Details LastModified Time None Recorded Advance Directives Directive None Recorded Payers Insurance Date Sequence Insurance Name Policy Number Policy Casiano Covered Member ID Casiano Member ID Guarantor Name 09/08/2023 2 [place] Olimpia Paul [id number] Olimpia Paul 11/26/2024 1 [employer] (MEDICARE REPLACEMENT/ ADVANTAGE - PPO) Olimpia Paul [id number] Olimpia Paul 09/08/2023 2 [place] Olimpia Paul [id number] Olimpia Paul 11/07/2023 2 [facility] LIFE INSURANCE - SENIORS CHOICE (SECONDARY TO MEDICARE) Olimpia Paul [id number] Olimpia Paul Notes Date Note Type Note Provider Name and Address Organization Details Recorded Time 06/16/2022 text/html The patient is i n today for followup of incomplete bladder emptying. She has a history of InterStim [id number] for urinary retention and incomplete emptying. Patient underwent Axonics replacement with nonrechargeable generator May 13, 2022 Patient is voiding well. SACHIN OAKES JR, MD [address] [place] [address] [place], [address], [facility] 06/19/2022 18:33:12 09/08/2023 text/html The patient is i n today for followup of incomplete bladder emptying. She has a history of InterStim [id number] for urinary retention and incomplete emptying. Patient underwent Axonics replacement with nonrechargeable generator May 13, 2022 Patient is voiding well. Reports episodes of malodorous urine and bacteruria without other symptoms of infection. Has used multiple antibiotics. Noticed trend since May 2023. SACHIN OAKES JR, MD [address] [place] [address] [place], [address], [facility] 09/10/2023 09:39:55 10/20/2023 text/html The patient is i n today for followup of incomplete bladder emptying. She has a history of InterStim [id number] for urinary retention and incomplete emptying. Patient underwent Axonics replacement with nonrechargeable generator May 13, 2022 Patient is voiding well. Reports episodes of malodorous urine and bacteruria without other symptoms of infection. Has used multiple antibiotics. Noticed trend since May 2023. SACHIN OAKES JR, MD [facility] [place], [address], [facility] 10/20/2023 12:44:14 12/14/2023 text/html The patient is i n today for followup of incomplete bladder emptying. She has a history of InterStim [id number] for urinary retention and incomplete emptying. Patient underwent Axonics replacement with nonrechargeable generator May 13, 2022 Cystoscopy October 24 is normal , Urethral dilation also performed that day. Patient is voiding well. Reports episodes of malodorous urine and bacteruria without other symptoms of infection. Has used multiple antibiotics. Noticed trend since May 2023. SACHIN OAKES JR, MD [address] [place] [address], [phone], [facility] 12/17/2023 11:42:59 11/14/2024 text/html The patient is a 64-year-old female presenting with urgency incontinence. Neuromodulation with Axonix implantation was completed in May 2022. She has a history of recurrent UTIs but no recent episodes. Methenamine was prescribed for UTI prevention but was discontinued due to gastrointestinal side effects. She is considering using the OTC supplement Eucora for UTI prevention. Currently, she is managing well regarding urgency incontinence. The patient is in today for followup of incomplete bladder emptying. She has a history of InterStim [id number] for urinary retention and incomplete emptying. Patient underwent Axonics replacement with nonrechargeable generator May 13, 2022 Cystoscopy October 24 is normal , Urethral dilation also performed that day. SACHIN OAKES JR, MD [address] [place] [address], [phone], [facility] 11/25/2024 15:47:51 OBGyn Episode No OBEpisode recorded.
[2025-01-14 07:47] VITALS: BP 146/74; PULSE 47; RESP 18; TEMP 36.3; O2SAT 99; BMI 44.1
--- NOTE | 2025-01-14 08:30 | CT_ITS ---
APPROVED REPORT Programming Director: CLINICAL INDICATION Chest Pain TECHNIQUE Image Acquisition: A 128 slice MDCT scanner ([employer] View) was used for data acquisition. A noncontrast coronary calcium scan was performed. A CT attenuation threshold of 130 Hounsfield units (HU) was used for the detection of calcium in contiguous voxels of 1 sq mm in area to be counted as individual lesions. Bolus tracking in the ascending aorta with a threshold of 180 HU was performed. Immediately afterwards, ECG synchronized cardiac CT was then performed from the cardiac base to apex using retrospective gating with ECG tube current modulation. A total of 85 mL of Isovue 370 mg/mL contrast medium was administered at 5 mL/sec followed by a saline flush using a biphasic injection protocol. A tube voltage of 120 KVp was used. The average heart rate at the time of acquisition was 58 bpm and regular. Image Reconstruction Transaxial images were reconstructed at 0.67 mm slide thickness. Data was reviewed interactively on an advanced workstation capable of 2 and 3-dimensional displays in all conventional reconstruction formats, including multiplanar reformations, maximum intensity projections, curved multiplanar reformations, and volume rendered reconstructions. When applicable, selected routine images describing the relevant coronary anatomy and pathology were saved and sent to PACS. Complications None Technical Quality Overall image quality was fair due to significant blooming artifact in the setting of significant calcification. Coronary artery opacification was fair. Total DLP (Dose-Length Product) is 2038.5 mGy-cm. The reported value represents the total of one or more individual components during the CT acquisition of this date and at this time, and as such, the same value may appear in more than one CT report depending on the interpreting/reporting physicians. COMPARISON None FINDINGS CT Coronary Calcium Scoring LMA (Left Main Artery) = 0 LAD (Left Anterior Descending) = 1325 LCX (Left Coronary Circumflex) = 68 RCA (Right Coronary Artery) = 655 Total Calcium Score = 2048 using the AJ-130 method. The observed calcium score of 2048 is at 99th percentile for subjects of the same age, sex, and race/ethnicity. The interpretation of the calcium heart score is based on the following continuum*: 0 = no calcified plaque detected (risk of coronary artery disease is very low ??? less than 5%) 1-10 = calcium detected in extremely minimal levels (risk of coronary diseases is still low ??? less than 10%) 11-100 = mild levels of plaque detected with certainty (mild or minimal narrowing of heart arteries is likely) 101-400 = definite,at least moderate levels of plaque detected (relatively high risk of a heart attack within 3-5 years) >401-999 = extensive levels of plaque detected (high risk of heart attack, high levels of vascular disease are present, high likelihood of at least one significant coronary narrowing) *The calcium heart score quantifies the burden of coronary calcification/plaque in the coronary arteries. The calcium heart score is not able to evaluate the presence or burden of non-calcified (i.e. soft) plaque. There is no identifiable calcification in the aortic valve, mitral annulus or mitral valve, pericardium, or myocardium. Coronary CT Angiography The coronary arterial system is right dominant. Quantitative Stenosis Grading: Left Main (LM): The left main originates normally from the left sinus of Valsalva. The LM bifurcates into the left anterior descending artery and left circumflex artery. The LM is patent with no evidence of atherosclerosis. Left Anterior Descending (LAD) and Diagonal Branches: The LAD gives off 3 diagonal branch(es). There is mixed calcified/noncalcified plaque in the proximal and mid LAD segments, including the 1st and 2nd diagonal branches, with up to 79-90% luminal stenosis. There is no evidence of LAD-myocardial bridge. Left Circumflex (LCX) and Obtuse Marginals (OM): The LCX gives off 1 Obtuse Marginal (OM) branch(es). There is mixed calcified/noncalcified plaque in the proximal and mid LCx with up to 50-70% luminal stenosis. Right Coronary Artery (RCA): The RCA originates normally from the right sinus of Valsalva. The RCA gives off a posterior descending artery (PDA) and posterolateral (PL) branches. There is mixed calcified/noncalcified plaque in the proximal and mid RCA segments with up to 50 to 70% luminal stenosis. Non-Coronary Cardiac Findings: Analysis of the left ventricular (LV) structure and function was performed after 3-D reconstruction of the LV from axial images, with user-corrected automatic contouring for assessment of LV volumes and user-defined reconstruction from oblique planes for measurement of 3-D cardiac structure and function. -The left ventricle systolic function is normal. -There is no left atrial appendage filling defect. Two right pulmonary veins and two left pulmonary veins drain normally into the left atrium. -No pericardial thickening or calcification. -Central and branch pulmonary arteries in the [id number] are unremarkable. -Thoracic aorta within the visualized thoracic aortic-branches in the [id number] is unremarkable. Extracardiac Structures No significant extra-cardiac findings. Note, however, that this study is focused on the cardiac findings. IMPRESSION -Fair image quality due to significant blooming artifact in the setting of significant calcification. -Extensive coronary calcification with an Agatston score = 2048 using the AJ-130 method. -The observed calcium score of 2048 is at 99th percentile for subjects of the same age, sex, and race/ethnicity. -Multivessel atherosclerotic coronary disease, most notably in the proximal and mid LAD, with possible evidence of significant flow-limiting atherosclerosis of the LAD, LCX, and RCA. -CAD-RADS 4A. Management recommendations per ACC/AHA guidelines*, as clinically appropriate. *Recommendations: CAD RADS 0: Reassurance. Consider non-atherosclerotic causes of chest pain. CAD RADS 1: Consider non-atherosclerotic causes of chest pain. Consider preventive therapy and risk factor modification. CAD RADS 2: Consider non-atherosclerotic causes of chest pain. Consider preventive therapy and risk factor modification, particularly for patients with nonobstructive plaque in multiple segments. CAD RADS 3: Consider further functional testing. Consider symptom-guided anti-ischemic and preventive pharmacotherapy as well as risk factor modification per published guideline statements. CAD RADS 4A: Consider further functional testing or invasive coronary angiography with revascularization per published guideline statements. Consider symptom-guided anti-ischemic and preventive pharmacotherapy as well as risk factor modification per published guideline statements. CAD RADS 4B: Invasive coronary angiography recommended with revascularization per published guideline statements. Consider symptom-guided anti-ischemic and preventive pharmacotherapy as well as risk factor modification per published guideline statements. CAD RADS 5: Consider invasive angiography and/or viability assessment with revascularization per published guideline statements. Consider symptom-guided anti-ischemic and preventive pharmacotherapy as well as risk factor modification per published guideline statements. CRITICAL RESULT None COMMUNICATION Per this written report The coronary and cardiac findings of this CCTA were reviewed, reported, and signed by Hernan Canada MD (Ice Skating Teacher) Conclusion Electronically signed by : Brisa Canada MD 01/15/2025 12:57:06
[2025-01-14 08:48] LABS: Anion Gap 10.6 mEq/L (5-15); Blood Urea Nitrogen 17 mg/dl (7-17); Calcium 9.8 mg/dl (8.4-10.2); Carbon Dioxide 30 mmol/L (22.0-30.0); Chloride 101 mmol/L (98-107); Creatinine Clearance Estimated 54 mL/min (50-200); Creatinine,Serum 0.60 mg/dl (0.52-1.04); Estimated Glomerular Filt Rate 100 ml/min (>60); GFR (African American) 121 ML/MIN (>60); Glucose 102 mg/dl (74-100); Potassium 3.6 mmoL/L (3.5-5.1); Sodium 138 mmol/L (136-145)
[2025-01-14 09:34] VITALS: BP 148/80; PULSE 57; RESP 17; O2SAT 98
[2025-01-14 09:35] VITALS: BP 172/82; PULSE 58; RESP 17; O2SAT 99
[2025-01-14] MEDS: NITROGLYCERIN 0.4MG SL TABLET SL (09:35)
[2025-01-14 09:44] VITALS: BP 105/63; PULSE 54; RESP 18; O2SAT 98
[2025-01-14] MEDS: 0.9 % SODIUM CHLORIDE 50 ML VIAL IV (09:49)
[2025-01-14] MEDS: SODIUM CHLORIDE 0.9% 10ML SYR (RAD ONLY) 10 ML IV (09:49)
[2025-01-14] MEDS: IOPAMIDOL-370 (76%);100ML BOTTLE 85 ML IV (09:49)
== END 2025-01-14 23:59 | disposition home or self-care (01) ==
PROVIDERS: PCP Nurse Practitioner; Visit Provider Internal Medicine
DX: I25.10 Atherosclerotic heart disease of native coronary artery without angina pectoris (principal); R93.1 Abnormal findings on diagnostic imaging of heart and coronary circulation; R94.31 Abnormal electrocardiogram [ECG] [EKG]; I10 Essential (primary) hypertension
CPT/HCPCS: 75574; 80048; Q9967

== ENCOUNTER 2025-01-24 09:55 | Day surgery (SDC) | payer MEDICARE, SELFPAY ==
[2025-01-24] VITALS (12 sets, daily range): BP systolic 119–194; BP diastolic 67–108; PULSE 40–68; RESP 16–20; TEMP 36.1; O2SAT 90–98; BMI 43.8
[2025-01-24 10:13] LABS: Chloride 106 mmol/L (98-107); Potassium 4.1 mmoL/L (3.5-5.1); Sodium 137 mmol/L (136-145)
[2025-01-24 10:16] LABS: Anion Gap 5.1 mEq/L (5-15); Blood Urea Nitrogen 16 mg/dl (7-17); Calcium 10.0 mg/dl (8.4-10.2); Carbon Dioxide 30 mmol/L (22.0-30.0); Creatinine Clearance Estimated 54 mL/min (50-200); Creatinine,Serum 0.70 mg/dl (0.52-1.04); Estimated Glomerular Filt Rate 84 ml/min (>60); GFR (African American) 101 ML/MIN (>60); Glucose 106 mg/dl (74-100)
--- NOTE | 2025-01-24 10:22 | IR_ITS ---
APPROVED REPORT Patient Location: Outpatient PROCEDURES Left heart catheterization Left ventriculogram Selective coronary angiogram Drug-eluting stent deployment to the proximal mid dominant right coronary INDICATION Coronary artery disease, Abnormal CCTA, Abnormal Myoview, Angina pectoris, Informed consent was obtained prior to the procedure. COMPLICATIONS None Estimated Blood Loss: Less than 10 mls TECHNIQUE One percent lidocaine used to anesthetize the right anterior aspect of the wrist. The right radial artery was accessed via the Seldinger technique. A 6 Swedish sheath was placed in the right radial artery. 2.5 mg of Verapamil, 800 mcg of nitroglycerin, 1mg Lidocaine and 5000 U Heparin were given through the arterial sheath. The JL3 catheter was also used to perform left heart catheterization, left ventriculogram and selective coronary angiogram. At the end of the diagnostic angiogram therapeutic heparin was administered giving a therapeutic ACT and the guide catheter was placed in the right coronary artery followed by Choice PT extra-support wire placed distally. A 4 mm x 38 mm Miah frontier stent was deployed at 20 bj reducing the stenosis. A 5 mm x 15 mm noncompliant balloon was deployed at 20 bj throughout the stent in order to post dilate. REY-3 flow was present before and after the procedure. At the end the procedure the apparatus was removed the sheath was removed good hemostasis was achieved using TR banding patient was transferred to the postop boarding in stable condition ANGIOGRAPHIC RESULTS The left main artery Normal The left anterior descending artery Has proximal and mid vessel 20% stenoses The circumflex artery Nondominant and has diffuse 10% luminal irregularity The right coronary artery Massively large and dominant with proximal 30% and a concentric 70% stenosis with distal 10 to 20% stenosis The RUIZ ventriculogram reveals Normal 65% The left ventricular end-diastolic pressure 10 mmHg IMPRESSION Severe dominant right coronary disease Successful stenting of the right coronary severe disease reduced to 0% with 1 drug-eluting stent Normal ejection fraction Normal LVEDP PLAN 1. Effient and aspirin 2. LDL less than 55 to be achieved with high intensity statin 3. Avoidance of tobacco products 4. Risk factor modification 5. Cardiac rehabilitation Electronically signed by : Jorge Gonzalez MD 01/24/2025 11:59:17
[2025-01-24 10:33] LABS: Hematocrit 36.4 % (37.0-47.0); Hemoglobin 12.1 g/dL (12.2-16.2); Immature Granulocytes % 0.2 %; Mean Corpuscular HGB Conc 33.2 g/dL (31.8-35.4); Mean Corpuscular Hemoglobin 31.0 pg (27.0-31.2); Mean Corpuscular Volume 93.3 fl (81-99); Nucleated Red Blood Cells % 0 %; Platelet Count 262 K/mm3 (142-424); Red Blood Count 3.90 M/mm3 (4.20-5.40); Red Cell Distribution Width-SD 45.4 fL; White Blood Count 8.1 K/mm3 (4.8-10.8)
[2025-01-24] MEDS: 0.9 % SODIUM CHLORIDE 500 ML 25 ML IV (11:32)
[2025-01-24] MEDS: LIDOCAINE 1% 10ML MDV 10 ML IJ (11:32)
[2025-01-24] MEDS: HEPARIN 1,000 UNITS/ML 10ML VIAL (CATH LAB) 5000 UNIT IV ×2 (11:32→12:05)
[2025-01-24] MEDS: VERAPAMIL 2.5MG/ML 2ML VIAL 2.5 MG IV (11:33)
[2025-01-24] MEDS: HEPARIN 1,000 UNITS/500ML NS (CATH LAB) 3000 UNIT IV (11:33)
[2025-01-24] MEDS: NITROGLYCERIN 800MCG/8ML SYR (CATH LAB) 800 MCG IA (11:34)
[2025-01-24] MEDS: FENTANYL 100MCG/2ML VIAL 50 MCG IV (11:58)
[2025-01-24] MEDS: MIDAZOLAM HCL 1MG/ML 5ML VIAL 1 MG IV (11:59)
[2025-01-24] MEDS: PRASUGREL 10MG TAB 60 MG PO (12:08)
[2025-01-24] MEDS: IOPAMIDOL-370 (76%);100ML BOTTLE 90 ML IV (14:25)
== END 2025-01-24 15:22 | disposition home or self-care (01) ==
PROVIDERS: Internal Medicine; PCP Nurse Practitioner; Visit Provider Internal Medicine
PROC: 4A023N7 Measurement of Cardiac Sampling and Pressure, Left Heart, Percutaneous Approach (ICD-10-PCS; CPT 93452; principal; 2025-01-24 08:45)
DX: I25.110 Atherosclerotic heart disease of native coronary artery with unstable angina pectoris (principal); R93.1 Abnormal findings on diagnostic imaging of heart and coronary circulation; R94.31 Abnormal electrocardiogram [ECG] [EKG]; I10 Essential (primary) hypertension; I51.89 Other ill-defined heart diseases; I51.7 Cardiomegaly; I47.20 Ventricular tachycardia, unspecified; G47.33 Obstructive sleep apnea (adult) (pediatric); E66.01 Morbid (severe) obesity due to excess calories; Z68.41 Body mass index [BMI] 40.0-44.9, adult; Z98.84 Bariatric surgery status; F17.210 Nicotine dependence, cigarettes, uncomplicated; Z79.02 Long term (current) use of antithrombotics/antiplatelets; Z79.82 Long term (current) use of aspirin; Z79.899 Other long term (current) drug therapy; Z88.1 Allergy status to other antibiotic agents; Z95.5 Presence of coronary angioplasty implant and graft; Z82.49 Family history of ischemic heart disease and other diseases of the circulatory system
CPT/HCPCS: 36415; 80048; 85025; 92928; 93458; 99152; C1725; C1760; C1769; C1874; C9600; J1200; J1644; J2003; J3010; J7040; Q9967

== ENCOUNTER 2025-01-25 11:38 | Outpatient (CLI) | payer MEDICARE, SELFPAY ==
--- OUTSIDE RECORDS SUMMARY | 2025-01-23 08:30 | XMS_ITS | Encounter Summary ---
Author Organization [facility] Address [address] [place] [address] Care Team Providers Care Endocrinology Teacher Name Role Phone yV Ryan APRN Primary Care Provider [phone] Encounter Details Date Type Department Care Team (Late st Contact Info) Description 01/23/2025 8:30 AM EDT Pre-Admission Testing [facility] PREADMISSION T [address] [place] [address] Social History Tobacco Use Types Packs/Day Years Used Date Smoking Tobacco: Never Assessed Comments Unknown Sex and Gender Information Value Date Recorded Sex Assigned at Not on file Legal Sex Female 4:33 PM EDT Gender Identity Not on file Sexual Orientation Not on file documented as of this encounter OR Notes * Kathia Goldsmith RN - 01/23/2025 8:30 AM EDT Patient presents with letter from Dr Hernan Canada, ([facility] Cardiology), stating patient is high risk for surgery and he recommends heart catherization. Patient is addiment about proceeding without heart cath. Via telephone, Dr Estrada from anesthesia states patient must proceed with heart cath and address heart before she can proceed with surgery. Instructed patient to follow through with cardiology. Patient and spouse verbalize understanding. Patient will r/s after she deals with heart care. Called and left a detailed message with Dr Breonna Braun photo finish photographer. Surgery canceled. documented in this encounter Plan of Treatment Upcoming Encounters Date Type Department Care Team (Late st Contact Info) Description 01/30/2025 7:00 AM EDT Appointment [facility] NUCLEAR MEDICINE [address] [place] [address] 01/30/2025 12:45 PM EDT Hospital Encounter [facility] OR [address] [place] [address] Neo Ravi MD [address] [facility] [place] [address] 01/30/2025 12:45 PM EDT - 01/30/2025 3:28 PM EDT Surgery [facility] OR [address] [place] [address] Neo Ravi MD [address] [facility] [place] [address] WIDE EXCISION LEFT MELANOMA BACK Scheduled Procedures Name Priority Associated Diagnoses Date/Ti me WIDE LOCAL EXCISION MELANOMA TRUNK/BACK 01/30/2025 12:45 PM EDT SENTINEL NODE BIOPSY 025 12:45 PM EDT documented as of this encounter Visit Diagnoses Not on filedocumented in this encounter Care Teams Endocrinology Teacher Relationship Specialty Start Date End Date Vy Ryan APRN [address] [place] [address] PCP - General Nurse Practitioner 01/23/25 documented as of this encounter
--- OUTSIDE RECORDS SUMMARY | 2025-01-25 11:41 | XMS_ITS | Data Portability ---
Author Organization [place] [facility] Address [address] [place] [address] Care Team Providers Care Equine Internship Name Role Phone LING MEZA Primary Care Provider PAUL MOSQUERA Coffee Break Attendant Assessment No assessment recorded. Plan of Treatment Reminders Order Date Submit Date Provider Last Modified By Organization Details Last Modified Time Details Appointments None recorded. Lab None recorded. Referral None recorded. Procedures None recorded. Surgeries None recorded. Imaging None recorded. Medication Orders Sensorcaine 0.5 % (5 mg/mL) injection solution [address] - [address], [address], 3 08:36:32 Kenalog 10 mg/mL suspension for injection [address] - [address], [address], 3 08:36:32 Kenalog 10 mg/mL suspension for injection [address] - [address], [address], 2 09:41:37 Xylocaine 20 mg/mL (2 %) injection solution [address] - [place], [address] [place] [address], [address], 2 09:41:37 Patient TargetsNo targets recorded. Patient InstructionsNo instructions recorded. Reason for Referral None Reported. Medical Equipment None Reported. Allergies No known drug allergies Medications Name Sig Start Date Stop Date Status Note LastModified by Organization Details LastModified Time atorvastatin 20 mg tablet TAKE ONE (1) TABLET EVERY DAY BY ORAL ROUTE AT BEDTIME. active Not Available Not Available No t Available torsemide 20 mg tablet TAKE ONE (1) TABLET EVERY DAY BY ORAL ROUTE FOR 90 DAYS. active Not Available Not Available No t Available citalopram 40 mg tablet Take 1 tablet every day by oral route. active Not Available Not Available No t Available trazodone 50 mg tablet TAKE ONE (1) TABLET EVERY DAY BY ORAL ROUTE AT BEDTIME FOR 30 DAYS. active Not Available Not Available No t Available gabapentin 400 mg capsule TAKE ONE (1) CAPSULE TWICE A DAY BY ORAL ROUTE FOR 30 DAYS. active Not Available Not Available No t Available Toprol XL 50 mg tablet,extend ed release Take 1 tablet every day by oral route. active Not Available Not Available No t Available aspirin 81 mg tablet,delaye d release TAKE ONE (1) TABLET EVERY DAY BY ORAL ROUTE. active Not Available Not Available No t Available Sensorcaine 0.5 % (5 mg/mL) injection solution Take 2 mL by injection route. 2022 active Not Available Not Available Not Avai lable Kenalog 10 mg/mL suspension for injection Take 2 mg by injection route. 2022 active Not Available Not Available Not Avai lable Xylocaine 20 mg/mL (2 %) injection solution Take 2 mg by injection route. 2021 active Not Available Not Available Not Avai lable gabapentin 300 mg capsule Take 1 capsule 3 times a day by oral route. active Not Available Not Available No t Available hydrochloroth iazide 25 mg tablet Take 1 tablet every day by oral route. active Not Available Not Available No t Available metoprolol succinate ER 25 mg tablet,extend ed release 24 hr TAKE ONE (1) TABLET BY MOUTH EVERY DAY active Not Available Not Available No t Available polyethylene glycol 3350 17 gram/dose oral powder TAKE 17 G EVERY DAY BY ORAL ROUTE NEEDED. active Not Available Not Available No t Available Ciprodex 0.3 %-0.1 % ear drops,suspens ion INSTILL FOUR (4) DROPS INTO AFFECTED EAR(S) BY OTIC ROUTE TWO (2) TIMES PER DAY FOR 7 DAYS active Not Available Not Available No t Available nitrofurantoi n monohydrate/m acrocrystals 100 mg capsule TAKE ONE (1) CAPSULE (100 MG) BY ORAL ROUTE TWO (2) TIMES PER DAY WITH FOOD FOR 7 DAYS active Not Available Not Available N ot Available Motrin active Not Available Not Availa ble Not Available Vitals Date Recorded Body temperature Heart rate Respiratory rate Systolic And Diastolic Provider Name and Address Organization Details Last Updated DateTime 05/06/2022 98.18 [degF] 78 /min 18 /min 145/77 mm[Hg] Rose Connell [facility] [place] 08:04:45 Social History None recorded. Functional Status Question Answer Note LastModified by Organization D etails LastModified Time What is your level of alcohol consumption? None [email or web address] Information not available 05/05/2022 Mental Status None recorded. Family History Relationship Description Onset Age of this Age Resolved Age Notes LastModified by Organization Details LastModified Time Father Coronary arterioscler osis [email or web address] Not available 2021 14:40:22 Medical History No medical history recorded. Gynecological HistoryNo gynecological history recorded. Obstetrics History GPAL:G 0 P 0 0 0 0 Past Encounters Encounter ID Performer Location Encounter Start Date Encounter Closed Date Diagnosis/Indication Diagnosis SNOMED-CT Code Diagnosis ICD10 Code Diagnosis Note [id number] MONSERRAT KNAPP [address] [address] 05/06/2022 07:55:11 05/06/2022 08:28:40 Bilateral osteoarthritis of knees 3215353900 35214 M17.0 [id number] MD UNIQUE Johnson [address] [address] 08/12/2022 07:58:18 08/12/2022 08:29:46 Bilateral osteoarthritis of knees [id number] 46917 M17.0 Health Concerns Section Related Observation LastModified by Organization Detai ls LastModified Time None Recorded Concern Status LastModified by Organization Details LastModified Time None Recorded Advance Directives Directive None Recorded Payers Insurance Date Sequence Insurance Name Policy Number Policy Casiano Covered Member ID Casiano Member ID Guarantor Name 01/23/2019 1 [employer] (PPO) Olimpia Sanchez Humberto [id number] Olimpia Sanchez Humberto 08/12/2022 1 [employer] (MEDICARE REPLACEMENT/ ADVANTAGE - PPO) Olimpia Sanchez Humberto [id number] Olimpia Paul Notes Date Note Type Note Provider Name and Address Organization Details Recorded Time 05/06/2022 text/html Pt is here for xiomara knee injs. She reports her last injs were effective for 3 months HAJA HOLMAN, MONSERRAT [address] [facility],[address], [place], [address], [facility] [place] 05/06/2022 08:39:31 08/12/2022 text/html patient is here for bilateral knee injections HAJA HOLMAN, MONSERRAT [address] [facility],[address], [place], [address], [facility] [place] 08/12/2022 08:27:27 OBGyn Episode No OBEpisode recorded.
--- OUTSIDE RECORDS SUMMARY | 2025-01-25 11:41 | XMS_ITS | Data Portability ---
Author Organization [facility] Address [address] [place] [address] Assessment Encounter Date Assessment Date Assessment LastModified by Organization Details LastModified Time 03/06/2024 03/06/2024 Medicare Preventive Services Check List reviewed and printed for patient. Not available 03/06/2024 08:25:52 Plan of Treatment Reminders Order Date Submit Date Provider Last Modified By Organization Details Last Modified Time Details Appointments None recorded. Lab culture, urine 2024 025 [place] [facility], [address], [address]ovany [address], [place], [address], 5 09:38:36 urinalysis, dipstick 2024 025 [facility], [address] [place], [address], 5 11:44:01 drug screen, 14 drugs (detectimed ), urine 2024 025 [facility] [facility], [address], [address], [place], [address], 5 09:38:35 drug screen, 14 drugs (detectimed ), urine 2024 025 [facility], [address], [address], [place], [address], 5 18:35:52 lipid panel, serum 2024 025 [facility], [address], [place] [address], [place], [address], 5 18:35:52 CMP, serum or plasma 2024 025 [facility], [address], [place], [place], [address], 5 18:35:51 CBC w/ auto diff 2024 025 [facility], [address], [address], [place], [address], 5 18:35:49 vitamin D, 25-hydroxy, total, serum 2024 025 [facility], [address], [place] [address], [place], [address], 5 18:35:57 cobalamin and folate panel, serum 2024 025 [facility], [address], [address] [address], [place], [address], 5 18:35:53 TSH + free T4, serum 2024 025 [facility], [address], [address] [address], [place], [address], 5 18:35:48 HbA1c (hemoglobin A1c), blood 2024 025 [facility], [address], [address], [place], [address], 5 18:35:55 urinalysis, dipstick 2024 025 [facility], [facility], [address] [place], [address], 5 08:42:11 culture, urine 2024 025 [facility], [address], [place] [address], [place], [address], 5 18:35:58 drug screen, 14 drugs (detectimed ), urine 2023 024 [facility], [address], [place], [place], [address], 4 12:37:07 CMP, serum or plasma 2023 024 [facility], [address], [address] [address], [place], [address], 4 18:35:41 CBC w/ auto diff 2023 024 [facility], [address], [address] [address], [place], [address], 4 18:35:39 lipid panel, serum 2023 024 [facility], [address], [place], [place], [address], 4 18:35:43 TSH + free T4, serum 2023 024 [facility], [address], [address] [address], [place], [address], 4 18:35:36 HbA1c (hemoglobin A1c), blood 2023 024 [facility], [address], [address] [address], [place], [address], 4 18:35:45 culture, urine 2023 024 [facility], [address], [place], [place], [address], 4 18:35:46 urinalysis, dipstick 2023 024 [facility], [address] [place], [address], 4 09:15:25 culture, urine 2023 024 [facility], [address], [place], [place], [address], 4 16:36:45 drug screen, 14 drugs (detectimed ), urine 2023 024 [facility], [address], [address] [address], [place], [address], 4 16:36:27 CMP, serum or plasma 2023 024 [facility], [address], [address] [address], [place], [address], 4 16:36:42 CBC w/ auto diff 2023 024 [facility], [address], [place], [place], [address], 4 16:36:41 vitamin D, 25-hydroxy, total, serum 2023 024 [facility], [address], [address] [address], [place], [address], 4 16:36:45 vitamin B12 + folate, serum or blood 2023 024 [facility], [address], [place] [address], [place], [address], 4 16:36:43 drug screen, 14 drugs (detectimed ), urine 2023 024 [facility], [address], [place], [place], [address], 4 20:36:24 lipid panel, serum 2023 024 [facility], [address], [place], [place], [address], 4 09:00:43 CMP, serum or plasma 2023 024 [facility], [address], [place], [place], [address], 4 09:00:42 CBC w/ auto diff 2023 024 [facility], [address], [address] [address], [place], [address], 4 09:00:41 TSH + free T4, serum 2023 024 [facility], [address], [place], [place], [address], 4 09:00:39 vitamin D, 25-hydroxy, total, serum 2023 024 [facility], [address], [address] [address], [place], [address], 4 09:00:48 vitamin B12 + folate, serum or blood 2023 024 [facility], [address], [place] [address], [place], [address], 4 09:00:44 HbA1c (hemoglobin A1c), blood 2023 024 [facility], [address], [address] [address], [place], [address], 4 09:00:47 Referral None recorded. Procedures None recorded. Surgeries None recorded. Imaging None recorded. Medication Orders Zepbound 2.5 mg/0.5 mL subcutaneou s pen injector 2024 025 [facility], [address] [place] [address], [address], 5 11:22:29 atorvastati n 20 mg tablet 2024 025 [facility], [address] [place] [address], [address], 5 11:41:12 torsemide 20 mg tablet [address], [address], 5 11:41:10 gabapentin 400 mg capsule [address], [address], 5 11:22:30 albuterol sulfate HFA 90 mcg/actuati on aerosol inhaler [address], [address], 5 08:42:10 gabapentin 400 mg capsule [address], [address], 5 08:42:10 Macrobid 100 mg capsule [address], [address], 5 05:01:26 atorvastati n 20 mg tablet [address], [address], 4 10:26:21 gabapentin 400 mg capsule [address], [place], [address], 4 10:26:27 gabapentin 400 mg capsule 2023 024 [facility], [address] [facility], [place], [address], 4 08:59:06 Patient TargetsNo targets recorded. Patient Instructions Encounter Date Encounter Id Patient Instructions Last Modified By Organization Details Last Modified Time 07/26/2023 [id number] body mass index: care instructions Not available 07/26/2023 15:38:05 learning about healthy weight Not available 07/26/2023 15:38:05 UDS obtained CSA reviewed and updated PDMR reviewed Advised to take medication as directed Will call with results of labs once available Discussed heart healthy lifestyle - low fat diet and aim for 30 minutes of physical activity per day To call office for questions, concerns or issues Not available 07/26/2023 09:03:05 12/04/2023 [id number] body mass index: care instructions Not available 12/04/2023 10:02:27 learning about healthy weight Not available 12/04/2023 10:02:27 UDS obtained CSA and PDMR reviewed - appropriate Advised to take medication as directed Discussed need to increase oral fluids Will call with results of labs once available To call office for questions, concerns or issues Not available 12/04/2023 10:33:33 03/06/2024 [id number] advance directives: care instructions Not available 03/06/2024 09:32:25 learning about depression Not available 03/06/2024 09:32:25 preventing falls : care instructions Not available 03/06/2024 09:32:25 body mass index: care instructions Not available 03/06/2024 09:32:25 learning about healthy weight Not available 03/06/2024 09:32:25 medicare preventive services guide Not available 03/06/2024 09:32:25 smoking cessatio n counseling, greater than 3 minutes up to 10 minutes* Not available 03/06/2024 08:32:30 Patient presente d to office today for their Medicare Annual Wellness Visit. Education was provided on healthy nutrition, including a diet rich in fruits and vegetables, minimizing simple carbohydrates, salt, and saturated fats. Encouraged regular cardiovascular exercise such as walking at least 30 minutes daily, 5 times per week. Emphasized preventive health measures and educated pt on fall prevention and community-based lifestyle interventions to help reduce health risks and promote healthy living. Patient advised to follow up with his ophthamologist for annual exam and evaluation of early cataracts. Discussed importance of increasing oral fluid intake - currently drinking 4 glasses of liquid per day at most Advised to take medication as directed Will call with results of labs once available Encouraged to follow heart healthy lifestyle - low fat diet and aim for 30 minutes per day of physical exercise. To call office for questions, concerns or issues Not available 03/06/2024 09:47:32 08/14/2024 [id number] body mass index: care instructions Not available 08/14/2024 13:28:36 learning about healthy weight Not available 08/14/2024 13:28:36 smoking cessatio n counseling, greater than 3 minutes up to 10 minutes* Not available 08/14/2024 08:42:10 UDS obtained CSA reviewed and updated PDMR reviewed - appropriate Discussed results of U/A with pt Advised to take medication as directed Will call with results of labs once available Encouraged to follow heart healthy lifestyle - low fat diet and aim for 30 minutes per day of physical exercise. To call office for questions, concerns or issues Not available 08/14/2024 10:02:07 12/26/2024 [id number] body mass index: care instructions Not available 12/26/2024 12:02:11 learning about healthy weight Not available 12/26/2024 12:02:11 smoking cessatio n counseling, greater than 3 minutes up to 10 minutes* Not available 12/26/2024 10:49:58 UDS obtained CSA and PDMR reviewed - appropriate Will attempt insurance approval for Zepbound due to morbid obesity, pain to knees Advised to take medication as directed Encouraged to follow heart healthy lifestyle - low fat diet and aim for 30 minutes per day of physical exercise. To call office for questions, concerns or issues Not available 12/26/2024 11:23:48 Reason for Referral None Reported. Results Created Date Observation Date Name Description Value Unit Range Abnormal Flag Note LastModifiedBy Organization Detail LastModifiedTime 07/26/1907/27/2023 TSH+F REE T4 TSH 1.790 uIU/m L 0.450- 4.500 Not Available [facility] ([facility]) [address] [facility] [address], [place], [address], 07/27/2023 09:00:39 07/26/1907/27/2023 TSH+F REE T4 T4,free(dire ct) 1.29 NG/dL 0.82-1 .77 Not Available [facility] ([facility]) [address] [place], [address], 07/27/2023 09:00:39 07/26/1907/27/2023 CBC WITH DIFFE RENTI AL/PL ATELE T WBC 7.8 x10e3 /uL 3.4-10 .8 Not Available [facility] ([facility]) [address] [place], [address], 07/27/2023 09:00:41 07/26/1907/27/2023 CBC WITH DIFFE RENTI AL/PL ATELE T RBC 3.90 x10e6 /uL 3.77-5 .28 Not Available [facility] ([facility]) [address] [place], [address], 07/27/2023 09:00:41 07/26/1907/27/2023 CBC WITH DIFFE RENTI AL/PL ATELE T hemoglobin 12.3 g/dL 11.1-1 5.9 Not Available [facility] ([facility]) [address] [place], [address], 07/27/2023 09:00:41 07/26/1907/27/2023 CBC WITH DIFFE RENTI AL/PL ATELE T hematocrit 35.8 % 34.0-4 6.6 Not Available [facility] ([facility]) [address] [facility] [address], [place], [address], 07/27/2023 09:00:41 07/26/1907/27/2023 CBC WITH DIFFE RENTI AL/PL ATELE T MCV 92 fL 79-97 Not Available [facility] ([facility]) [address] [facility] [address], [place], [address], 07/27/2023 09:00:41 07/26/1907/27/2023 CBC WITH DIFFE RENTI AL/PL ATELE T MCH 31.5 pg 26.6-3 3.0 Not Available [facility] ([facility]) [address] [facility] [address], [place], [address], 07/27/2023 09:00:41 07/26/1907/27/2023 CBC WITH DIFFE RENTI AL/PL ATELE T MCHC 34.4 g/dL 31.5-3 5.7 Not Available [facility] ([facility]) [address] [facility] [address], [place], [address], 07/27/2023 09:00:41 07/26/1907/27/2023 CBC WITH DIFFE RENTI AL/PL ATELE T RDW 12.9 % 11.7-1 5.4 Not Available [facility] ([facility]) [address] [facility] [address], [place], [address], 07/27/2023 09:00:41 07/26/1907/27/2023 CBC WITH DIFFE RENTI AL/PL ATELE T platelets 267 x10e3 /uL 150-45 0 Not Available [facility] ([facility]) [address] [facility] [address], [place], [address], 07/27/2023 09:00:41 07/26/1907/27/2023 CBC WITH DIFFE RENTI AL/PL ATELE T neutrophils 60 % not estab. Not Available [facility] ([facility]) [address] [facility] [address], [place], [address], 07/27/2023 09:00:41 07/26/1907/27/2023 CBC WITH DIFFE RENTI AL/PL ATELE T lymphs 31 % not estab. Not Available [facility] ([facility]) [address] [facility] [address], [place], [address], 07/27/2023 09:00:41 07/26/1907/27/2023 CBC WITH DIFFE RENTI AL/PL ATELE T monocytes 6 % not estab. Not Available [facility] ([facility]) [address] [facility] [address] [place], [place], [address], 07/27/2023 09:00:41 07/26/1907/27/2023 CBC WITH DIFFE RENTI AL/PL ATELE T eos 2 % not estab. Not Available [facility] ([facility]) [address] [facility] [address], [place], [address], 07/27/2023 09:00:41 07/26/1907/27/2023 CBC WITH DIFFE RENTI AL/PL ATELE T basos 1 % not estab. Not Available [facility] ([facility]) [address] [facility] [address], [place], [address], 07/27/2023 09:00:41 07/26/1907/27/2023 CBC WITH DIFFE RENTI AL/PL ATELE T immature cells COMMISSARY CLERK Not Available [facility] ([facility]) [address] [facility] [address], [place], [address], 07/27/2023 09:00:41 07/26/1907/27/2023 CBC WITH DIFFE RENTI AL/PL ATELE T neutrophils (absolute) 4.6 x10e3 /uL 1.4-7. 0 Not Available [facility] ([facility]) [address] [facility] [address], [place], [address], 07/27/2023 09:00:41 07/26/19 24 07/27/2023 CBC WITH DIFFE RENTI AL/PL ATELE T lymphs (absolute) 2.4 x10e3 /uL 0.7-3. 1 Not Available [facility] ([facility]) [address] [facility] [address], [place], [address], 07/27/2023 09:00:41 07/26/1907/27/2023 CBC WITH DIFFE RENTI AL/PL ATELE T monocytes(ab solute) 0.5 x10e3 /uL 0.1-0. 9 Not Available [facility] ([facility]) [address] [facility] [address], [place], [address], 07/27/2023 09:00:41 07/26/1907/27/2023 CBC WITH DIFFE RENTI AL/PL ATELE T eos (absolute) 0.1 x10e3 /uL 0.0-0. 4 Not Available [facility] ([facility]) [address] [facility] [address], [place], [address], 07/27/2023 09:00:41 07/26/1907/27/2023 CBC WITH DIFFE RENTI AL/PL ATELE T baso (absolute) 0.1 x10e3 /uL 0.0-0. 2 Not Available [facility] ([facility]) [address] [facility] [address], [place], [address], 07/27/2023 09:00:41 07/26/1907/27/2023 CBC WITH DIFFE RENTI AL/PL ATELE T immature granulocytes 0 % not estab. Not Available [facility] ([facility]) [address] [place], [address], 07/27/2023 09:00:41 07/26/1907/27/2023 CBC WITH DIFFE RENTI AL/PL ATELE T immature grans (abs) 0.0 x10e3 /uL 0.0-0. 1 Not Available [facility] ([facility] [facility]) [address] [facility] [address], [place], [address], 07/27/2023 09:00:41 07/26/1907/27/2023 CBC WITH DIFFE RENTI AL/PL ATELE T NRBC COMMISSARY CLERK Not Available [facility] ([facility]) [address], [place], [address], 07/27/2023 09:00:41 07/26/19 24 07/27/2023 CBC WITH DIFFE RENTI AL/PL ATELE T hematology comments: COMMISSARY CLERK Not Available [facility] ([facility]) [address], [place], [address], 07/27/2023 09:00:41 07/26/1907/27/2023 COMP. METAB OLIC PANEL (14) glucose 95 mg/dL 70-99 Not Available [facility] ([facility]) [address] [facility] [address], [place], [address], 07/27/2023 09:00:42 07/26/19 24 07/27/2023 COMP. METAB OLIC PANEL (14) BUN 23 mg/dL 8-27 Not Available [facility] ([facility]) [address] [facility] [address], [place], [address], 07/27/2023 09:00:42 07/26/19 24 07/27/2023 COMP. METAB OLIC PANEL (14) creatinine 0.75 mg/dL 0.57-1 .00 Not Available [facility] ([facility]) [address] [facility] [address], [place], [address], 07/27/2023 09:00:42 07/26/1907/27/2023 COMP. METAB OLIC PANEL (14) eGFR 89 mL/mi n/1.7 3 >59 Not Available [facility] ([facility]) [address] [facility] [address], [place], [address], 07/27/2023 09:00:42 07/26/19 24 07/27/2023 COMP. METAB OLIC PANEL (14) BUN/creatini ne ratio 31 12-28 above high normal Not Available [facility] ([facility]) [address] [facility] [place], [address], 07/27/2023 09:00:42 07/26/19 24 07/27/2023 COMP. METAB OLIC PANEL (14) sodium 142 mmol/ L 134-14 4 Not Available [facility] ([facility]) [address] [facility] [place], [address], 07/27/2023 09:00:42 07/26/19 24 07/27/2023 COMP. METAB OLIC PANEL (14) potassium 4.4 mmol/ L 3.5-5. 2 Not Available [facility] ([facility]) [address] [facility] [place], [address], 07/27/2023 09:00:42 07/26/19 24 07/27/2023 COMP. METAB OLIC PANEL (14) chloride 107 mmol/ L 96-106 above high normal Not Available [facility] ([facility]) [address] [facility] [place], [address], 07/27/2023 09:00:42 07/26/19 24 07/27/2023 COMP. METAB OLIC PANEL (14) carbon dioxide, total 23 mmol/ L 20-29 Not Available [facility] ([facility]) [address] [facility] [place], [address], 07/27/2023 09:00:42 07/26/19 24 07/27/2023 COMP. METAB OLIC PANEL (14) calcium 9.9 mg/dL 8.7-10 .3 Not Available [facility] ([facility]) [address] [facility] [place], [address], 07/27/2023 09:00:42 07/26/19 24 07/27/2023 COMP. METAB OLIC PANEL (14) protein, total 6.1 g/dL 6.0-8. 5 Not Available [facility] ([facility] [facility]) [address] [facility] [place], [address], 07/27/2023 09:00:42 07/26/19 24 07/27/2023 COMP. METAB OLIC PANEL (14) albumin 3.8 g/dL 3.9-4. 9 below low normal Not Available [facility] ([facility]) [address] [facility] [place], [address], 07/27/2023 09:00:42 07/26/19 24 07/27/2023 COMP. METAB OLIC PANEL (14) globulin, total 2.3 g/dL 1.5-4. 5 Not Available [facility] ([facility]) [address] [facility] [place], [address], 07/27/2023 09:00:42 07/26/19 24 07/27/2023 COMP. METAB OLIC PANEL (14) A/G ratio 1.7 1.2-2. 2 Not Available [facility] ([facility]) [address] [facility] [place], [address], 07/27/2023 09:00:42 07/26/19 24 07/27/2023 COMP. METAB OLIC PANEL (14) bilirubin, total 0.3 mg/dL 0.0-1. 2 Not Available [facility] ([facility]) [address] [facility] [place], [address], 07/27/2023 09:00:42 07/26/19 24 07/27/2023 COMP. METAB OLIC PANEL (14) alkaline phosphatase 148 IU/L 44-121 above high normal Not Available [facility] ([facility]) [address] [facility] [place], [address], 07/27/2023 09:00:42 07/26/19 24 07/27/2023 COMP. METAB OLIC PANEL (14) AST (SGOT) 13 IU/L 0-40 Not Available [facility] ([facility]) [address] [facility] [address], [place], [address], 07/27/2023 09:00:42 07/26/19 24 07/27/2023 COMP. METAB OLIC PANEL (14) ALT (SGPT) 12 IU/L 0-32 Not Available [facility] ([facility]) [address] [facility] [address], [place], [address], 07/27/2023 09:00:42 07/26/19 24 07/27/2023 LIPID PANEL cholesterol, total 122 mg/dL 100-19 9 Not Available [facility] ([facility]) [address] [place], [address], 07/27/2023 09:00:43 07/26/19 24 07/27/2023 LIPID PANEL triglyceride s 142 mg/dL 0-149 Not Available [facility] ([facility]) [address] [place], [address], 07/27/2023 09:00:43 07/26/19 24 07/27/2023 LIPID PANEL HDL cholesterol 44 mg/dL >39 Not Available [facility]) [address] [place], [address], 07/27/2023 09:00:43 07/26/19 24 07/27/2023 LIPID PANEL VLDL cholesterol shayna 25 mg/dL 5-40 Not Available [facility] ([facility]) [address] [place], [address], 07/27/2023 09:00:43 07/26/1907/27/2023 LIPID PANEL LDL chol calc ([facility]) 53 mg/dL 0-99 Not Available [facility]) [address] [place], [address], 07/27/2023 09:00:43 07/26/19 24 07/27/2023 LIPID PANEL comment: COMMISSARY CLERK Not Available [facility] ([facility]) [address] [facility] [address], [place], [address], 07/27/2023 09:00:43 07/26/1907/27/2023 VITAM IN B12 AND FOLAT E vitamin B12 119 pg/mL 232-12 45 below low normal Not Available [facility] ([facility]) [address] [place], [address], 07/27/2023 09:00:44 07/26/1907/27/2023 VITAM IN B12 AND FOLAT E folate (folic acid), serum 4.5 NG/mL >3.0 A serum folat e adore ntrat ion of less than 3.1 ng/mL is consi dered to repre sent clini shayna defic iency . Not Available [facility] ([facility]) [address] [facility] [address], [place], [address], 07/27/2023 09:00:44 07/26/1907/27/2023 HEMOG LOBIN A1C hemoglobin A1C 5.6 % 4.8-5. 6 Predi abete s: 5.7 - 6.4 Diabe nan: >6.4 Glyce dylan contr ol for adult s with diabe nan: <7.0 Not Available [facility] ([facility]) [address] [place], [address], 07/27/2023 09:00:47 07/26/1907/27/2023 VITAM IN D, 25-HY DROXY vitamin D, 25-hydroxy 27.2 NG/mL 30.0-1 00.0 below low normal Vitam in D defic iency has been defin ed by the Insti tute of Medic ine and an Endoc rine Socie ty pract ice guide line as a level of serum 25-OH vitam in D less than 20 ng/mL (1,2) . The Endoc rine Socie ty went on to furth er defin e vitam in D insuf ficie ncy as a level betwe en 21 and 29 ng/mL (2). 1. IOM (Inst itute of Medic ine). 2010. Dieta ry refer ence intak es for calci um and D. Cindy delvalle [place]: [employer] . 2. Ellie nguyen [place], Shalini alvarenga [place], Dayana off-F russell i ESPOSITO, et al. Evalu ation , treat ment, and preve ntion of vitam in D defic iency : an Endoc rine Socie ty clini shayna pract ice guide line. JCEM. 2010; 96(7) :1911 -30. Not Available [facility] ([facility]) [address], [place], [address], 07/27/2023 09:00:48 07/26/1908/01/2023 COMPL IANCE DRUG MURALI SIS, UR summary report (summary) FINAL ===== ===== ===== ===== ===== ===== ===== ===== ===== ===== ===== ===== ===== === TOXAS SURE COMP DRUG MURALI SIS,U R ===== ===== ===== ===== ===== ===== ===== ===== ===== ===== ===== ===== ===== === Test Resul t Flag Units Drug Prese nt Gabap entin PRESE NT Ibupr ofen PRESE NT Diphe nhydr amine PRESE NT ===== ===== ===== ===== ===== ===== ===== ===== ===== ===== ===== ===== ===== === Test Resul t Flag Units Ref Range Creat inine 52 mg/dL >=20 ===== ===== ===== ===== ===== ===== ===== ===== ===== ===== ===== ===== ===== === Decla red Medic ation s: Medic ation list was not provi ded. ===== ===== ===== ===== ===== ===== ===== ===== ===== ===== ===== ===== ===== === For clini shayna consu ltati on, pleas e call . ===== ===== ===== ===== ===== ===== ===== ===== ===== ===== ===== ===== ===== === Not Available [facility] ([facility]) [address] [place], [address], 08/01/2023 20:36:23 07/26/19 24 08/01/2023 COMPL IANCE DRUG MURALI SIS, UR pdf . Not Available [facility] ([facility]) [address] [place], [address], 08/01/2023 20:36:23 12/04/19 24 12/05/2023 CBC WITH DIFFE RENTI AL/PL ATELE T WBC 8.8 x10e3 /uL 3.4-10 .8 Not Available [facility] ([facility]) [address] [place], [address], 12/07/2023 16:36:41 12/04/19 24 12/05/2023 CBC WITH DIFFE RENTI AL/PL ATELE T RBC 3.98 x10e6 /uL 3.77-5 .28 Not Available [facility] ([facility]) [address] [place], [address], 12/07/2023 16:36:41 12/04/19 24 12/05/2023 CBC WITH DIFFE RENTI AL/PL ATELE T hemoglobin 12.4 g/dL 11.1-1 5.9 Not Available [facility] ([facility]) [address] [place], [address], 12/07/2023 16:36:41 12/04/19 24 12/05/2023 CBC WITH DIFFE RENTI AL/PL ATELE T hematocrit 37.0 % 34.0-4 6.6 Not Available [facility] ([facility]) [address] [place], [address], 12/07/2023 16:36:41 12/04/19 24 12/05/2023 CBC WITH DIFFE RENTI AL/PL ATELE T MCV 93 fL 79-97 Not Available [facility] ([facility]) [address] [place], [address], 12/07/2023 16:36:41 12/04/19 24 12/05/2023 CBC WITH DIFFE RENTI AL/PL ATELE T MCH 31.2 pg 26.6-3 3.0 Not Available [facility] ([facility]) [address] [place], [address], 12/07/2023 16:36:41 12/04/19 24 12/05/2023 CBC WITH DIFFE RENTI AL/PL ATELE T MCHC 33.5 g/dL 31.5-3 5.7 Not Available [facility] ([facility]) [address] [place], [address], 12/07/2023 16:36:41 12/04/19 24 12/05/2023 CBC WITH DIFFE RENTI AL/PL ATELE T RDW 12.9 % 11.7-1 5.4 Not Available [facility] ([facility]) [address] [place], [address], 12/07/2023 16:36:41 12/04/19 24 12/05/2023 CBC WITH DIFFE RENTI AL/PL ATELE T platelets 285 x10e3 /uL 150-45 0 Not Available [facility] ([facility]) [address] [facility], [place], [address], 12/07/2023 16:36:41 12/04/19 24 12/05/2023 CBC WITH DIFFE RENTI AL/PL ATELE T neutrophils 65 % not estab. Not Available [facility] ([facility]) [address] [facility] [place], [place], [address], 12/07/2023 16:36:41 12/04/19 24 12/05/2023 CBC WITH DIFFE RENTI AL/PL ATELE T lymphs 26 % not estab. Not Available [facility] ([facility]) [address] [facility] [place], [place], [address], 12/07/2023 16:36:41 12/04/19 24 12/05/2023 CBC WITH DIFFE RENTI AL/PL ATELE T monocytes 6 % not estab. Not Available [facility] ([facility]) [address] [facility] [place], [place], [address], 12/07/2023 16:36:41 12/04/19 24 12/05/2023 CBC WITH DIFFE RENTI AL/PL ATELE T eos 2 % not estab. Not Available [facility] ([facility]) [address] [facility] [place], [place], [address], 12/07/2023 16:36:41 12/04/19 24 12/05/2023 CBC WITH DIFFE RENTI AL/PL ATELE T basos 0 % not estab. Not Available [facility] ([facility]) [address] [facility], [place], [address], 12/07/2023 16:36:41 12/04/19 24 12/05/2023 CBC WITH DIFFE RENTI AL/PL ATELE T immature cells COMMISSARY CLERK Not Available [facility] ([facility]) [address] [facility] [place], [place], [address], 12/07/2023 16:36:41 12/04/19 24 12/05/2023 CBC WITH DIFFE RENTI AL/PL ATELE T neutrophils (absolute) 5.8 x10e3 /uL 1.4-7. 0 Not Available [facility] ([facility]) [address] [place], [address], 12/07/2023 16:36:41 12/04/19 24 12/05/2023 CBC WITH DIFFE RENTI AL/PL ATELE T lymphs (absolute) 2.3 x10e3 /uL 0.7-3. 1 Not Available [facility] ([facility]) [address] [place], [address], 12/07/2023 16:36:41 12/04/19 24 12/05/2023 CBC WITH DIFFE RENTI AL/PL ATELE T monocytes(ab solute) 0.6 x10e3 /uL 0.1-0. 9 Not Available [facility] ([facility]) [address] [place], [address], 12/07/2023 16:36:41 12/04/19 24 12/05/2023 CBC WITH DIFFE RENTI AL/PL ATELE T eos (absolute) 0.1 x10e3 /uL 0.0-0. 4 Not Available [facility] ([facility]) [address] [place], [address], 12/07/2023 16:36:41 12/04/19 24 12/05/2023 CBC WITH DIFFE RENTI AL/PL ATELE T baso (absolute) 0.0 x10e3 /uL 0.0-0. 2 Not Available [facility] ([facility]) [address] [place], [address], 12/07/2023 16:36:41 12/04/19 24 12/05/2023 CBC WITH DIFFE RENTI AL/PL ATELE T immature granulocytes 1 % not estab. Not Available [facility] ([facility]) [address], [place], [address], 12/07/2023 16:36:41 12/04/19 24 12/05/2023 CBC WITH DIFFE RENTI AL/PL ATELE T immature grans (abs) 0.1 x10e3 /uL 0.0-0. 1 Not Available [facility] ([facility]) [address] [facility] [place], [place], [address], 12/07/2023 16:36:41 12/04/19 24 12/05/2023 CBC WITH DIFFE RENTI AL/PL ATELE T NRBC COMMISSARY CLERK Not Available [facility] ([facility]) [address] [facility] [place], [place], [address], 12/07/2023 16:36:41 12/04/19 24 12/05/2023 CBC WITH DIFFE RENTI AL/PL ATELE T hematology comments: COMMISSARY CLERK Not Available [facility] ([facility]) [address] [facility] [place], [place], [address], 12/07/2023 16:36:41 12/04/19 24 12/05/2023 COMP. METAB OLIC PANEL (14) glucose 87 mg/dL 70-99 Not Available [facility] ([facility]) [address] [facility] [place], [place], [address], 12/07/2023 16:36:42 12/04/19 24 12/05/2023 COMP. METAB OLIC PANEL (14) BUN 20 mg/dL 8-27 Not Available [facility] ([facility]) [address] [facility] [place], [place], [address], 12/07/2023 16:36:42 12/04/19 24 12/05/2023 COMP. METAB OLIC PANEL (14) creatinine 0.76 mg/dL 0.57-1 .00 Not Available [facility] ([place] [facility]) [address] [facility] [place], [place], [address], 12/07/2023 16:36:42 12/04/19 24 12/05/2023 COMP. METAB OLIC PANEL (14) eGFR 87 mL/mi n/1.7 3 >59 Not Available [facility] ([facility]) [address] [facility] [place], [place], [address], 12/07/2023 16:36:42 12/04/19 24 12/05/2023 COMP. METAB OLIC PANEL (14) BUN/creatini ne ratio 26 12-28 Not Available [facility] ([facility]) [address] [facility] [place], [place], [address], 12/07/2023 16:36:42 12/04/19 24 12/05/2023 COMP. METAB OLIC PANEL (14) sodium 142 mmol/ L 134-14 4 Not Available [facility] ([facility]) [address] [place], [address], 12/07/2023 16:36:42 12/04/19 24 12/05/2023 COMP. METAB OLIC PANEL (14) potassium 3.9 mmol/ L 3.5-5. 2 Not Available [facility] ([facility]) [address] [facility] [place], [place], [address], 12/07/2023 16:36:42 12/04/19 24 12/05/2023 COMP. METAB OLIC PANEL (14) chloride 104 mmol/ L 96-106 Not Available [facility] ([facility]) [address] [place], [address], 12/07/2023 16:36:42 12/04/19 24 12/05/2023 COMP. METAB OLIC PANEL (14) carbon dioxide, total 24 mmol/ L 20-29 Not Available [facility] ([facility]) [address] [place], [address], 12/07/2023 16:36:42 12/04/19 24 12/05/2023 COMP. METAB OLIC PANEL (14) calcium 9.7 mg/dL 8.7-10 .3 Not Available [facility] ([facility]) [address] [facility] [place], [address], 12/07/2023 16:36:42 12/04/19 24 12/05/2023 COMP. METAB OLIC PANEL (14) protein, total 6.3 g/dL 6.0-8. 5 Not Available [facility] ([facility]) [address] [facility] [place], [address], 12/07/2023 16:36:42 12/04/19 24 12/05/2023 COMP. METAB OLIC PANEL (14) albumin 3.9 g/dL 3.9-4. 9 Not Available [facility] ([facility]) [address] [facility] [place], [address], 12/07/2023 16:36:42 12/04/19 24 12/05/2023 COMP. METAB OLIC PANEL (14) globulin, total 2.4 g/dL 1.5-4. 5 Not Available [facility] ([facility]) [address] [facility] [place], [address], 12/07/2023 16:36:42 12/04/19 24 12/05/2023 COMP. METAB OLIC PANEL (14) A/G ratio 1.6 1.2-2. 2 Not Available [facility] ([facility]) [address] [facility] [place], [address], 12/07/2023 16:36:42 12/04/19 24 12/05/2023 COMP. METAB OLIC PANEL (14) bilirubin, total 0.4 mg/dL 0.0-1. 2 Not Available [facility] ([facility]) [address] [facility] [place], [address], 12/07/2023 16:36:42 12/04/19 24 12/05/2023 COMP. METAB OLIC PANEL (14) alkaline phosphatase 159 IU/L 44-121 above high normal Not Available [facility] ([facility]) [address] [facility] [place], [address], 12/07/2023 16:36:42 12/04/19 24 12/05/2023 COMP. METAB OLIC PANEL (14) AST (SGOT) 18 IU/L 0-40 Not Available [facility] ([facility]) [address] [facility] [place], [address], 12/07/2023 16:36:42 12/04/19 24 12/05/2023 COMP. METAB OLIC PANEL (14) ALT (SGPT) 16 IU/L 0-32 Not Available [facility] ([facility]) [address] [facility] [place], [address], 12/07/2023 16:36:42 12/04/19 24 12/05/2023 VITAM IN B12 AND FOLAT E vitamin B12 306 pg/mL 232-12 45 Not Available [facility] ([facility]) [address] [facility] [place], [address], 12/07/2023 16:36:43 12/04/19 24 12/05/2023 VITAM IN B12 AND FOLAT E folate (folic acid), serum 4.6 NG/mL >3.0 A serum folat e adore ntrat ion of less than 3.1 ng/mL is consi dered to repre sent clini shayna defic iency . Not Available [facility] ([facility]) [address] [place], [address], 12/07/2023 16:36:43 12/04/19 24 12/05/2023 VITAM IN D, 25-HY DROXY vitamin D, 25-hydroxy 25.6 NG/mL 30.0-1 00.0 below low normal Vitam in D defic iency has been defin ed by the Insti tute of Medic ine and an Endoc rine Socie ty pract ice guide line as a level of serum 25-OH vitam in D less than 20 ng/mL (1,2) . The Endoc rine Socie ty went on to furth er defin e vitam in D insuf ficie ncy as a level betwe en 21 and 29 ng/mL (2). 1. IOM (Inst itute of Medic ine). 2010. Dieta ry refer ence intak es for calci um and D. Cindy delvalle [place]: [facility] . 2. Ellie nguyen MF, Shalini alvarenga [place], Dayana off-F errar i ESPOSITO, et al. Evalu ation , treat ment, and preve ntion of vitam in D defic iency : an Endoc rine Socie ty clini shayna pract ice guide line. JCEM. 2010; 96(7) :1911 -30. Not Available [facility] ([facility]) [address] [place], [address], 12/07/2023 16:36:44 12/04/19 24 12/07/2023 URINE CULTU RE, ROUTI NE urine culture, routine Final report abnormal Not Available [facility] ([facility]) [address] [place], [address], 12/07/2023 16:36:45 12/04/19 24 12/07/2023 URINE CULTU RE, ROUTI NE result 1 Escher ichia coli abnormal Great er than 100,0 00 colon y formi ng units per mL Cefaz madhav <=4 ug/mL Cefaz madhav with an DYLAN <=16 predi cts susce ptibi lity to the oral agent s cefac angel, cefdi chidi, cefpo doxim e, cefpr ozil, cefur oxime , cepha lexin , and lorac arbef when used for thera py of uncom plica ricky urina ry tract infec tions due to E. coli, Klebs iella pneum oniae , and Prote us mirab ilis. Not Available [facility] ([facility]) [address] [facility], [place], [address], 12/07/2023 16:36:45 12/04/19 24 12/07/2023 URINE CULTU RE, ROUTI NE antimicrobia l susceptibili ty Commen t S = Susce ptibl e; I = Inter media te; R = Resis tant P = Posit linn; N = Negat linn MICS are expre ssed in micro grams per mL Antib iotic RSLT# 1 RSLT# 2 RSLT# 3 RSLT# 4 Amoxi cilli n/Cla vulan ic Acid S<=2 Ampic illin S =4 Cefep radha S<=0. 12 Ceftr iaxon e S<=0. 25 Cefur oxime S =4 Cipro floxa celso S<=0. 25 Ertap enem S<=0. 12 Genta micin S<=1 Imipe nem S<=0. 25 Levof loxac in S<=0. 12 Merop enem S<=0. 25 Nitro furan toin S<=16 Piper acill in/Ta zobac schneider S<=4 Tetra cycli ne S<=1 Tobra mycin S<=1 Trime thopr im/Armstrong lfa S<=20 Not Available [facility] ([facility]) [address] [facility] [place] [facility], [place], [address], 12/07/2023 16:36:45 12/04/19 24 12/13/2023 COMPL IANCE DRUG MURALI SIS, UR summary report (summary) FINAL ===== ===== ===== ===== ===== ===== ===== ===== ===== ===== ===== ===== ===== === TOXAS SURE COMP DRUG MURALI SIS,U R ===== ===== ===== ===== ===== ===== ===== ===== ===== ===== ===== ===== ===== === Speci men Alert Note: Urina ry creat inine is low; abili ty to detec t some drugs may be compr omise d. Inter pret resul ts with cauti on. ===== ===== ===== ===== ===== ===== ===== ===== ===== ===== ===== ===== ===== === Test Resul t Flag Units Drug Prese nt Gabap entin PRESE NT Ibupr ofen PRESE NT Diphe nhydr amine PRESE NT ===== ===== ===== ===== ===== ===== ===== ===== ===== ===== ===== ===== ===== === Test Resul t Flag Units Ref Range Creat inine 19 L mg/dL >=20 ===== ===== ===== ===== ===== ===== ===== ===== ===== ===== ===== ===== ===== === Decla red Medic ation s: Medic ation list was not provi ded. ===== ===== ===== ===== ===== ===== ===== ===== ===== ===== ===== ===== ===== === For clini shayna consu ltati on, pleas e call . ===== ===== ===== ===== ===== ===== ===== ===== ===== ===== ===== ===== ===== === Not Available [facility] ([facility]) [address], [place], [address], 12/13/2023 16:36:27 12/04/19 24 12/13/2023 COMPL IANCE DRUG MURALI SIS, UR pdf . Not Available [facility] ([facility]) [address] [facility], [place], [address], 12/13/2023 16:36:27 03/06/20 24 03/07/2024 TSH+F REE T4 TSH 1.640 uIU/m L 0.450- 4.500 normal Not Available [facility] ([facility]) [address] [facility] [place], [place], [address], 03/10/2024 18:35:36 03/06/20 24 03/07/2024 TSH+F REE T4 T4,free(dire ct) 1.30 NG/dL 0.82-1 .77 normal Not Available [facility] ([facility]) [address] [facility] [place], [place], [address], 03/10/2024 18:35:36 03/06/20 24 03/07/2024 CBC WITH DIFFE RENTI AL/PL ATELE T WBC 8.3 x10e3 /uL 3.4-10 .8 normal Not Available [facility] ([facility]) [address] [place], [address], 03/10/2024 18:35:39 03/06/20 24 03/07/2024 CBC WITH DIFFE RENTI AL/PL ATELE T RBC 3.90 x10e6 /uL 3.77-5 .28 normal Not Available [facility] ([facility]) [address] [place], [address], 03/10/2024 18:35:39 03/06/20 24 03/07/2024 CBC WITH DIFFE RENTI AL/PL ATELE T hemoglobin 12.0 g/dL 11.1-1 5.9 normal Not Available [facility] ([facility]) [address] [place], [address], 03/10/2024 18:35:39 03/06/20 24 03/07/2024 CBC WITH DIFFE RENTI AL/PL ATELE T hematocrit 36.5 % 34.0-4 6.6 normal Not Available [facility] ([facility]) [address] [place], [address], 03/10/2024 18:35:39 03/06/20 24 03/07/2024 CBC WITH DIFFE RENTI AL/PL ATELE T MCV 94 fL 79-97 normal Not Available [facility] ([facility]) [address] [facility], [place], [address], 03/10/2024 18:35:39 03/06/20 24 03/07/2024 CBC WITH DIFFE RENTI AL/PL ATELE T MCH 30.8 pg 26.6-3 3.0 normal Not Available [facility] ([facility]) [address] [facility], [place], [address], 03/10/2024 18:35:39 03/06/20 24 03/07/2024 CBC WITH DIFFE RENTI AL/PL ATELE T MCHC 32.9 g/dL 31.5-3 5.7 normal Not Available [facility] ([facility]) [address] [place], [address], 03/10/2024 18:35:39 03/06/20 24 03/07/2024 CBC WITH DIFFE RENTI AL/PL ATELE T RDW 13.0 % 11.7-1 5.4 Not Available [facility] ([facility]) [address] [place], [address], 03/10/2024 18:35:39 03/06/20 24 03/07/2024 CBC WITH DIFFE RENTI AL/PL ATELE T platelets 270 x10e3 /uL 150-45 0 normal Not Available [facility] ([facility]) [address] [place], [address], 03/10/2024 18:35:39 03/06/20 24 03/07/2024 CBC WITH DIFFE RENTI AL/PL ATELE T neutrophils 62 % not estab. normal Not Available [facility] ([facility]) [address] [facility], [place], [address], 03/10/2024 18:35:39 03/06/20 24 03/07/2024 CBC WITH DIFFE RENTI AL/PL ATELE T lymphs 28 % not estab. normal Not Available [facility] ([facility]) [address] [facility], [place], [address], 03/10/2024 18:35:39 03/06/20 24 03/07/2024 CBC WITH DIFFE RENTI AL/PL ATELE T monocytes 7 % not estab. normal Not Available [facility] ([facility]) [address] [facility], [place], [address], 03/10/2024 18:35:39 03/06/20 24 03/07/2024 CBC WITH DIFFE RENTI AL/PL ATELE T eos 2 % not estab. normal Not Available [facility] ([facility]) [address] [facility], [place], [address], 03/10/2024 18:35:39 03/06/20 24 03/07/2024 CBC WITH DIFFE RENTI AL/PL ATELE T basos 1 % not estab. normal Not Available [facility] ([facility]) [address] [place], [address], 03/10/2024 18:35:39 03/06/20 24 03/07/2024 CBC WITH DIFFE RENTI AL/PL ATELE T immature cells COMMISSARY CLERK Not Available [facility] ([facility]) [address] [place], [address], 03/10/2024 18:35:39 03/06/20 24 03/07/2024 CBC WITH DIFFE RENTI AL/PL ATELE T neutrophils (absolute) 5.2 x10e3 /uL 1.4-7. 0 normal Not Available [facility] ([facility]) [address] [place], [address], 03/10/2024 18:35:39 03/06/20 24 03/07/2024 CBC WITH DIFFE RENTI AL/PL ATELE T lymphs (absolute) 2.4 x10e3 /uL 0.7-3. 1 normal Not Available [facility] ([facility]) [address] [facility], [place], [address], 03/10/2024 18:35:39 03/06/20 24 03/07/2024 CBC WITH DIFFE RENTI AL/PL ATELE T monocytes(ab solute) 0.6 x10e3 /uL 0.1-0. 9 normal Not Available [facility] ([facility]) [address] [facility], [place], [address], 03/10/2024 18:35:39 03/06/20 24 03/07/2024 CBC WITH DIFFE RENTI AL/PL ATELE T eos (absolute) 0.2 x10e3 /uL 0.0-0. 4 normal Not Available [facility] ([facility]) [address] [facility], [place], [address], 03/10/2024 18:35:39 03/06/20 24 03/07/2024 CBC WITH DIFFE RENTI AL/PL ATELE T baso (absolute) 0.0 x10e3 /uL 0.0-0. 2 normal Not Available [facility] ([facility]) [address] [facility], [place], [address], 03/10/2024 18:35:39 03/06/20 24 03/07/2024 CBC WITH DIFFE RENTI AL/PL ATELE T immature granulocytes 0 % not estab. Not Available [facility] ([facility]) [address] [facility], [place], [address], 03/10/2024 18:35:39 03/06/20 24 03/07/2024 CBC WITH DIFFE RENTI AL/PL ATELE T immature grans (abs) 0.0 x10e3 /uL 0.0-0. 1 Not Available [facility] ([facility]) [address], [place], [address], 03/10/2024 18:35:39 03/06/20 24 03/07/2024 CBC WITH DIFFE RENTI AL/PL ATELE T NRBC COMMISSARY CLERK Not Available [facility] ([facility]) [address], [place], [address], 03/10/2024 18:35:39 03/06/20 24 03/07/2024 CBC WITH DIFFE RENTI AL/PL ATELE T hematology comments: COMMISSARY CLERK Not Available [facility] ([facility]) [address], [place], [address], 03/10/2024 18:35:39 03/06/20 24 03/07/2024 COMP. METAB OLIC PANEL (14) glucose 92 mg/dL 70-99 normal Not Available [facility] ([facility]) [address], [place], [address], 03/10/2024 18:35:41 03/06/20 24 03/07/2024 COMP. METAB OLIC PANEL (14) BUN 19 mg/dL 8-27 normal Not Available [facility] ([facility]) [address] [place], [address], 03/10/2024 18:35:41 03/06/20 24 03/07/2024 COMP. METAB OLIC PANEL (14) creatinine 0.75 mg/dL 0.57-1 .00 normal Not Available [facility] ([facility]) [address] [place], [address], 03/10/2024 18:35:41 03/06/20 24 03/07/2024 COMP. METAB OLIC PANEL (14) eGFR 88 mL/mi n/1.7 3 >59 normal Not Available [facility] ([facility]) [address] [place], [address], 03/10/2024 18:35:41 03/06/20 24 03/07/2024 COMP. METAB OLIC PANEL (14) BUN/creatini ne ratio 25 12-28 normal Not Available [facility] ([facility]) [address] [facility], [place], [address], 03/10/2024 18:35:41 03/06/20 24 03/07/2024 COMP. METAB OLIC PANEL (14) sodium 140 mmol/ L 134-14 4 normal Not Available [facility] ([facility]) [address] [facility] [place], [place], [address], 03/10/2024 18:35:41 03/06/20 24 03/07/2024 COMP. METAB OLIC PANEL (14) potassium 3.9 mmol/ L 3.5-5. 2 normal Not Available [facility] ([facility]) [address] [facility], [place], [address], 03/10/2024 18:35:41 03/06/20 24 03/07/2024 COMP. METAB OLIC PANEL (14) chloride 104 mmol/ L 96-106 normal Not Available [facility] ([facility]) [address] [facility], [place], [address], 03/10/2024 18:35:41 03/06/20 24 03/07/2024 COMP. METAB OLIC PANEL (14) carbon dioxide, total 22 mmol/ L 20-29 normal Not Available [facility] ([facility]) [address] [facility], [place], [address], 03/10/2024 18:35:41 03/06/20 24 03/07/2024 COMP. METAB OLIC PANEL (14) calcium 9.7 mg/dL 8.7-10 .3 normal Not Available [facility] ([facility]) [address] [facility], [place], [address], 03/10/2024 18:35:41 03/06/20 24 03/07/2024 COMP. METAB OLIC PANEL (14) protein, total 6.1 g/dL 6.0-8. 5 normal Not Available [facility] ([facility]) [address] [place], [address], 03/10/2024 18:35:41 03/06/20 24 03/07/2024 COMP. METAB OLIC PANEL (14) albumin 4.0 g/dL 3.9-4. 9 normal Not Available [facility] ([facility]) [address] [place], [address], 03/10/2024 18:35:41 03/06/20 24 03/07/2024 COMP. METAB OLIC PANEL (14) globulin, total 2.1 g/dL 1.5-4. 5 Not Available [facility] ([facility]) [address] [place], [address], 03/10/2024 18:35:41 03/06/20 24 03/07/2024 COMP. METAB OLIC PANEL (14) bilirubin, total 0.3 mg/dL 0.0-1. 2 normal Not Available [facility] ([facility]) [address] [place], [address], 03/10/2024 18:35:41 03/06/20 24 03/07/2024 COMP. METAB OLIC PANEL (14) alkaline phosphatase 137 IU/L 44-121 above high normal Not Available [facility] ([facility]) [address] [place], [address], 03/10/2024 18:35:41 03/06/20 24 03/07/2024 COMP. METAB OLIC PANEL (14) AST (SGOT) 18 IU/L 0-40 normal Not Available [facility] ([facility]) [address] [place], [address], 03/10/2024 18:35:41 03/06/20 24 03/07/2024 COMP. METAB OLIC PANEL (14) ALT (SGPT) 14 IU/L 0-32 normal Not Available [facility] ([facility]) [address] [facility], [place], [address], 03/10/2024 18:35:41 03/06/20 24 03/07/2024 LIPID PANEL cholesterol, total 121 mg/dL 100-19 9 normal Not Available [facility] ([facility]) [address] [place], [address], 03/10/2024 18:35:43 03/06/20 24 03/07/2024 LIPID PANEL triglyceride s 134 mg/dL 0-149 normal Not Available [facility] ([facility]) [address] [place], [address], 03/10/2024 18:35:43 03/06/20 24 03/07/2024 LIPID PANEL HDL cholesterol 48 mg/dL >39 normal Not Available [facility] ([facility]) [address] [place], [address], 03/10/2024 18:35:43 03/06/20 24 03/07/2024 LIPID PANEL VLDL cholesterol shayna 23 mg/dL 5-40 Not Available [facility] ([facility]) [address] [place], [address], 03/10/2024 18:35:43 03/06/20 24 03/07/2024 LIPID PANEL LDL chol calc ([facility]) 50 mg/dL 0-99 Not Available [facility] ([facility]) [address] [place], [address], 03/10/2024 18:35:43 03/06/20 24 03/07/2024 LIPID PANEL LDL calc comment: COMMISSARY CLERK Not Available [facility] ([facility]) [address] [place], [address], 03/10/2024 18:35:43 03/06/20 24 03/07/2024 HEMOG LOBIN A1C hemoglobin A1C 5.7 % 4.8-5. 6 above high normal Predi abete s: 5.7 - 6.4 Diabe nan: >6.4 Glyce dylan contr ol for adult s with diabe nan: <7.0 Not Available [facility] ([facility]) [address] [place], [address], 03/10/2024 18:35:45 03/06/2003/10/2024 URINE CULTU RE, ROUTI NE urine culture, routine Final report abnormal Not Available [facility] ([facility]) [address] [place], [address], 03/10/2024 18:35:46 03/06/20 24 03/10/2024 URINE CULTU RE, ROUTI NE result 1 Escher ichia coli abnormal Cefaz madhav <=4 ug/mL Cefaz madhav with an DYLAN <=16 predi cts susce ptibi lity to the oral agent s cefac angel, cefdi chidi, cefpo doxim e, cefpr ozil, cefur oxime , cepha lexin , and lorac arbef when used for thera py of uncom plica ricky urina ry tract infec tions due to E. coli, Klebs iella pneum oniae , and Prote us mirab ilis. Great er than 100,0 00 colon y formi ng units per mL Not Available [facility] ([facility]) [address] [facility] [place] [facility], [place], [address], 03/10/2024 18:35:46 03/06/20 24 03/10/2024 URINE CULTU RE, ROUTI NE antimicrobia l susceptibili ty Commen t S = Susce ptibl e; I = Inter media te; R = Resis tant P = Posit linn; N = Negat linn MICS are expre ssed in micro grams per mL Antib iotic RSLT# 1 RSLT# 2 RSLT# 3 RSLT# 4 Amoxi cilli n/Cla vulan ic Acid S<=2 Ampic illin S<=2 Cefep radha S<=0. 12 Ceftr iaxon e S<=0. 25 Cefur oxime S =4 Cipro floxa celso S<=0. 25 Ertap enem S<=0. 12 Genta micin S<=1 Imipe nem S<=0. 25 Levof loxac in S<=0. 12 Merop enem S<=0. 25 Nitro furan toin S =32 Piper acill in/Ta zobac schneider S<=4 Tetra cycli ne S<=1 Tobra mycin S<=1 Trime thopr im/Armstrong lfa S<=20 Not Available [facility] ([facility]) [address], [place], [address], 03/10/2024 18:35:46 03/06/20 24 03/13/2024 COMPL IANCE DRUG MURALI SIS, UR summary report (summary) FINAL ===== ===== ===== ===== ===== ===== ===== ===== ===== ===== ===== ===== ===== === TOXAS SURE COMP DRUG MURALI SIS,U R ===== ===== ===== ===== ===== ===== ===== ===== ===== ===== ===== ===== ===== === Test Resul t Flag Units Drug Prese nt Gabap entin PRESE NT Ibupr ofen PRESE NT Diphe nhydr amine PRESE NT ===== ===== ===== ===== ===== ===== ===== ===== ===== ===== ===== ===== ===== === Test Resul t Flag Units Ref Range Creat inine 150 mg/dL >=20 ===== ===== ===== ===== ===== ===== ===== ===== ===== ===== ===== ===== ===== === Decla red Medic ation s: Medic ation list was not provi ded. ===== ===== ===== ===== ===== ===== ===== ===== ===== ===== ===== ===== ===== === For clini shayna consu ltati on, pleas e call . ===== ===== ===== ===== ===== ===== ===== ===== ===== ===== ===== ===== ===== === Not Available [facility] ([facility]) [address] [facility] [address], [place], [address], 03/13/2024 12:37:07 03/06/20 24 03/13/2024 COMPL IANCE DRUG MURALI SIS, UR pdf . Not Available [facility] ([facility]) [address] [facility] [address] [place], [place], [address], 03/13/2024 12:37:07 03/06/20 24 03/06/2024 urina lysis , dipst ick Leukocytes Negati ve Not Available Formerly [facility], [facility] [address] [place], [address], 03/06/2024 09:05:00 03/06/20 24 03/06/2024 urina lysis , dipst ick Nitrite negati ve Not Available Former[facility], [facility] [address] [place], [address], 03/06/2024 09:05:00 03/06/20 24 03/06/2024 urina lysis , dipst ick Urobilinogen 1 Not Available [address] [place], [address], 03/06/2024 09:05:00 03/06/20 24 03/06/2024 urina lysis , dipst ick Protein Trace Not Available [address] [place], [address], 03/06/2024 09:05:00 03/06/20 24 03/06/2024 urina lysis , dipst ick pH 6.5 Not Available [address] [place], [address], 03/06/2024 09:05:00 03/06/20 24 03/06/2024 urina lysis , dipst ick Blood Negati ve Not Available [address] [place], [address], 03/06/2024 09:05:00 03/06/20 24 03/06/2024 urina lysis , dipst ick Specific [place] 1.020 Not Available [address] [place], [address], 03/06/2024 09:05:00 03/06/20 24 03/06/2024 urina lysis , dipst ick Ketone Negati ve Not Available [address] [place], [address], 03/06/2024 09:05:00 03/06/20 24 03/06/2024 urina lysis , dipst ick Bilirubin Negati ve Not Available [address] [place], [address], 03/06/2024 09:05:00 03/06/20 24 03/06/2024 urina lysis , dipst ick Glucose Negati ve Not Available [facility], [facility] [address] [place], [address], 03/06/2024 09:05:00 08/14/19 25 08/15/2024 TSH+F REE T4 TSH 2.480 uIU/m L 0.450- 4.500 normal Not Available [facility] ([facility]) [address] [place], [address], 08/17/2024 18:35:48 08/14/1908/15/2024 TSH+F REE T4 T4,free(dire ct) 1.16 NG/dL 0.82-1 .77 normal Not Available [facility] ([facility]) [address] [place], [address], 08/17/2024 18:35:48 08/14/19 25 08/15/2024 CBC WITH DIFFE RENTI AL/PL ATELE T WBC 9.5 x10e3 /uL 3.4-10 .8 normal Not Available [facility] ([facility]) [address] [place], [address], 08/17/2024 18:35:49 08/14/19 25 08/15/2024 CBC WITH DIFFE RENTI AL/PL ATELE T RBC 3.89 x10e6 /uL 3.77-5 .28 normal Not Available [facility] ([facility]) [address] [place], [address], 08/17/2024 18:35:49 08/14/19 25 08/15/2024 CBC WITH DIFFE RENTI AL/PL ATELE T hemoglobin 12.2 g/dL 11.1-1 5.9 normal Not Available [facility] ([facility]) [address] [place], [address], 08/17/2024 18:35:49 08/14/19 25 08/15/2024 CBC WITH DIFFE RENTI AL/PL ATELE T hematocrit 36.5 % 34.0-4 6.6 normal Not Available [facility] ([facility]) [address] [place], [address], 08/17/2024 18:35:49 08/14/19 25 08/15/2024 CBC WITH DIFFE RENTI AL/PL ATELE T MCV 94 fL 79-97 normal Not Available [facility] ([facility]) [address] [place], [address], 08/17/2024 18:35:49 08/14/19 25 08/15/2024 CBC WITH DIFFE RENTI AL/PL ATELE T MCH 31.4 pg 26.6-3 3.0 normal Not Available [facility] ([facility]) [address] [place], [address], 08/17/2024 18:35:49 08/14/19 25 08/15/2024 CBC WITH DIFFE RENTI AL/PL ATELE T MCHC 33.4 g/dL 31.5-3 5.7 normal Not Available [facility] ([facility]) [address] [place], [address], 08/17/2024 18:35:49 08/14/19 25 08/15/2024 CBC WITH DIFFE RENTI AL/PL ATELE T RDW 13.7 % 11.7-1 5.4 Not Available [facility] ([facility]) [address] [place], [address], 08/17/2024 18:35:49 08/14/19 25 08/15/2024 CBC WITH DIFFE RENTI AL/PL ATELE T platelets 283 x10e3 /uL 150-45 0 normal Not Available [facility] ([facility]) [address] [place], [address], 08/17/2024 18:35:49 08/14/19 25 08/15/2024 CBC WITH DIFFE RENTI AL/PL ATELE T neutrophils 66 % not estab. normal Not Available [facility] ([facility]) [address] [facility] [address], [place], [address], 08/17/2024 18:35:49 08/14/19 25 08/15/2024 CBC WITH DIFFE RENTI AL/PL ATELE T lymphs 27 % not estab. normal Not Available [facility] ([facility]) [address] [facility] [address] [place], [place], [address], 08/17/2024 18:35:49 08/14/19 25 08/15/2024 CBC WITH DIFFE RENTI AL/PL ATELE T monocytes 5 % not estab. normal Not Available [facility] ([facility]) [address] [facility] [address] [place], [place], [address], 08/17/2024 18:35:49 08/14/19 25 08/15/2024 CBC WITH DIFFE RENTI AL/PL ATELE T eos 2 % not estab. normal Not Available [facility] ([facility]) [address] [facility] [address] [place], [place], [address], 08/17/2024 18:35:49 08/14/19 25 08/15/2024 CBC WITH DIFFE RENTI AL/PL ATELE T basos 0 % not estab. normal Not Available [facility] ([facility]) [address] [facility] [address] [place], [place], [address], 08/17/2024 18:35:49 08/14/19 25 08/15/2024 CBC WITH DIFFE RENTI AL/PL ATELE T immature cells COMMISSARY CLERK Not Available [facility] ([facility]) [address] [place], [address], 08/17/2024 18:35:49 08/14/19 25 08/15/2024 CBC WITH DIFFE RENTI AL/PL ATELE T neutrophils (absolute) 6.2 x10e3 /uL 1.4-7. 0 normal Not Available [facility] ([facility]) [address] [facility] [address] [place], [place], [address], 08/17/2024 18:35:49 08/14/19 25 08/15/2024 CBC WITH DIFFE RENTI AL/PL ATELE T lymphs (absolute) 2.5 x10e3 /uL 0.7-3. 1 normal Not Available [facility] ([facility]) [address] [facility] [address] [place], [place], [address], 08/17/2024 18:35:49 08/14/19 25 08/15/2024 CBC WITH DIFFE RENTI AL/PL ATELE T monocytes(ab solute) 0.5 x10e3 /uL 0.1-0. 9 normal Not Available [facility] ([facility]) [address] [facility] [address] [place], [place], [address], 08/17/2024 18:35:49 08/14/19 25 08/15/2024 CBC WITH DIFFE RENTI AL/PL ATELE T eos (absolute) 0.2 x10e3 /uL 0.0-0. 4 normal Not Available [facility] ([facility]) [address] [place], [address], 08/17/2024 18:35:49 08/14/19 25 08/15/2024 CBC WITH DIFFE RENTI AL/PL ATELE T baso (absolute) 0.0 x10e3 /uL 0.0-0. 2 normal Not Available [facility] ([facility]) [address] [place], [address], 08/17/2024 18:35:49 08/14/19 25 08/15/2024 CBC WITH DIFFE RENTI AL/PL ATELE T immature granulocytes 0 % not estab. Not Available [facility] ([facility]) [address] [place], [address], 08/17/2024 18:35:49 08/14/19 25 08/15/2024 CBC WITH DIFFE RENTI AL/PL ATELE T immature grans (abs) 0.0 x10e3 /uL 0.0-0. 1 Not Available [facility] ([facility]) [address] [facility] [address] [place], [place], [address], 08/17/2024 18:35:49 08/14/19 25 08/15/2024 CBC WITH DIFFE RENTI AL/PL ATELE T NRBC COMMISSARY CLERK Not Available [facility] ([facility]) [address] [facility] [address] [place], [place], [address], 08/17/2024 18:35:49 08/14/19 25 08/15/2024 CBC WITH DIFFE RENTI AL/PL ATELE T hematology comments: COMMISSARY CLERK Not Available [facility] ([facility]) [address] [facility] [address] [place], [place], [address], 08/17/2024 18:35:49 08/14/19 25 08/15/2024 COMP. METAB OLIC PANEL (14) glucose 91 mg/dL 70-99 normal Not Available [facility] ([facility]) [address] [facility] [address], [place], [address], 08/17/2024 18:35:51 08/14/19 25 08/15/2024 COMP. METAB OLIC PANEL (14) BUN 21 mg/dL 8-27 normal Not Available [facility] ([facility]) [address] [facility] [address] [place], [place], [address], 08/17/2024 18:35:51 08/14/19 25 08/15/2024 COMP. METAB OLIC PANEL (14) creatinine 0.64 mg/dL 0.57-1 .00 normal Not Available [facility] ([facility]) [address] [place], [address], 08/17/2024 18:35:51 08/14/19 25 08/15/2024 COMP. METAB OLIC PANEL (14) eGFR 98 mL/mi n/1.7 3 >59 normal Not Available [facility] ([facility]) [address] [place], [address], 08/17/2024 18:35:51 08/14/19 25 08/15/2024 COMP. METAB OLIC PANEL (14) BUN/creatini ne ratio 33 12-28 above high normal Not Available [facility] ([facility]) [address] [place], [address], 08/17/2024 18:35:51 08/14/19 25 08/15/2024 COMP. METAB OLIC PANEL (14) sodium 141 mmol/ L 134-14 4 normal Not Available [facility] ([facility]) [address] [place], [address], 08/17/2024 18:35:51 08/14/19 25 08/15/2024 COMP. METAB OLIC PANEL (14) potassium 3.7 mmol/ L 3.5-5. 2 normal Not Available [facility] ([facility]) [address] [place], [address], 08/17/2024 18:35:51 08/14/19 25 08/15/2024 COMP. METAB OLIC PANEL (14) chloride 103 mmol/ L 96-106 normal Not Available [facility] ([facility]) [address] [place], [address], 08/17/2024 18:35:51 08/14/19 25 08/15/2024 COMP. METAB OLIC PANEL (14) carbon dioxide, total 22 mmol/ L 20-29 normal Not Available [facility] ([facility]) [address] [place], [address], 08/17/2024 18:35:51 08/14/19 25 08/15/2024 COMP. METAB OLIC PANEL (14) calcium 9.4 mg/dL 8.7-10 .3 normal Not Available [facility] ([place] [facility]) [address] [place], [address], 08/17/2024 18:35:51 08/14/19 25 08/15/2024 COMP. METAB OLIC PANEL (14) protein, total 6.5 g/dL 6.0-8. 5 normal Not Available [facility] ([facility]) [address] [place], [address], 08/17/2024 18:35:51 08/14/19 25 08/15/2024 COMP. METAB OLIC PANEL (14) albumin 4.0 g/dL 3.9-4. 9 normal Not Available [facility] ([facility]) [address] [place], [address], 08/17/2024 18:35:51 08/14/19 25 08/15/2024 COMP. METAB OLIC PANEL (14) globulin, total 2.5 g/dL 1.5-4. 5 Not Available [facility] ([facility]) [address] [place], [address], 08/17/2024 18:35:51 08/14/19 25 08/15/2024 COMP. METAB OLIC PANEL (14) bilirubin, total 0.4 mg/dL 0.0-1. 2 normal Not Available [facility] ([facility]) [address] [place], [address], 08/17/2024 18:35:51 08/14/19 25 08/15/2024 COMP. METAB OLIC PANEL (14) alkaline phosphatase 147 IU/L 44-121 above high normal Not Available [facility] ([facility]) [address] [place], [address], 08/17/2024 18:35:51 08/14/19 25 08/15/2024 COMP. METAB OLIC PANEL (14) AST (SGOT) 14 IU/L 0-40 normal Not Available [facility] ([facility]) [address] [place], [address], 08/17/2024 18:35:51 08/14/19 25 08/15/2024 COMP. METAB OLIC PANEL (14) ALT (SGPT) 11 IU/L 0-32 normal Not Available [facility] ([facility]) [address] [place], [address], 08/17/2024 18:35:51 08/14/19 25 08/15/2024 LIPID PANEL cholesterol, total 122 mg/dL 100-19 9 normal Not Available [facility] ([facility]) [address] [place], [address], 08/17/2024 18:35:52 08/14/19 25 08/15/2024 LIPID PANEL triglyceride s 156 mg/dL 0-149 above high normal Not Available [facility] ([facility]) [address] [place], [address], 08/17/2024 18:35:52 08/14/19 25 08/15/2024 LIPID PANEL HDL cholesterol 37 mg/dL >39 below low normal Not Available [facility] ([facility]) [address] [place], [address], 08/17/2024 18:35:52 08/14/19 25 08/15/2024 LIPID PANEL VLDL cholesterol shayna 27 mg/dL 5-40 Not Available [facility] ([facility]) [address] [place], [address], 08/17/2024 18:35:52 08/14/19 25 08/15/2024 LIPID PANEL LDL chol calc [facility]) 58 mg/dL 0-99 Not Available [facility] ([facility]) [address] [place], [address], 08/17/2024 18:35:52 08/14/19 25 08/15/2024 LIPID PANEL LDL calc comment: COMMISSARY CLERK Not Available [facility] ([facility]) [address] [place], [address], 08/17/2024 18:35:52 08/14/19 25 08/15/2024 VITAM IN B12 AND FOLAT E vitamin B12 274 pg/mL 232-12 45 normal Not Available [facility] ([facility]) [address] [facility] [address] [place], [place], [address], 08/17/2024 18:35:53 08/14/19 25 08/15/2024 VITAM IN B12 AND FOLAT E folate (folic acid), serum 7.0 NG/mL >3.0 normal A serum folat e adore ntrat ion of less than 3.1 ng/mL is consi dered to repre sent clini shayna defic iency . Not Available [facility] ([facility]) [address] [facility] [address], [place], [address], 08/17/2024 18:35:53 08/14/19 25 08/15/2024 HEMOG LOBIN A1C hemoglobin A1C 5.7 % 4.8-5. 6 above high normal Predi abete s: 5.7 - 6.4 Diabe nan: >6.4 Glyce dylan contr ol for adult s with diabe nan: <7.0 Not Available [facility] ([facility]) [address] [facility] [address] [place], [place], [address], 08/17/2024 18:35:55 08/14/19 25 08/15/2024 VITAM IN D, 25-HY DROXY vitamin D, 25-hydroxy 16.0 NG/mL 30.0-1 00.0 below low normal Vitam in D defic iency has been defin ed by the Insti tute of Medic ine and an Endoc rine Socie ty pract ice guide line as a level of serum 25-OH vitam in D less than 20 ng/mL (1,2) . The Endoc rine Socie ty went on to furth er defin e vitam in D insuf ficie ncy as a level betwe en 21 and 29 ng/mL (2). 1. IOM (Inst itute of Medic ine). 2010. Dieta ry refer ence intak es for calci um and D. [place]: [facility] Press . 2. Ellie nguyen [place], Shalini alvarenga [place], Dayana off-F errar i ESPOSITO, et al. Evalu ation , treat ment, and preve ntion of vitam in D defic iency : an Endoc rine Socie ty clini shayna pract ice guide line. JCEM. 2010; 96(7) :1911 -30. Not Available [facility] ([facility]) [address] [place], [address], 08/17/2024 18:35:57 08/14/19 25 08/17/2024 URINE CULTU RE, ROUTI NE urine culture, routine Final report abnormal Not Available [facility] ([facility]) [address] [place], [address], 08/17/2024 18:35:58 08/14/19 25 08/17/2024 URINE CULTU RE, ROUTI NE result 1 Escher ichia coli abnormal Cefaz madhav with an DYLAN <=16 predi cts susce ptibi lity to the oral agent s cefac angel, cefdi chidi, cefpo doxim e, cefpr ozil, cefur oxime , cepha lexin , and lorac arbef when used for thera py of uncom plica ricky urina ry tract infec tions due to E. coli, Klebs iella pneum oniae , and Prote us mirab ilis. Great er than 100,0 00 colon y formi ng units per mL Not Available [facility] ([facility]) [address] [place], [address], 08/17/2024 18:35:58 08/14/19 25 08/17/2024 URINE CULTU RE, ROUTI NE result 2 COMMEN T Mixed uroge nital tanvi 50,00 0-100 ,000 colon y formi ng units per mL Not Available [facility] ([facility]) [address] [place], [address], 08/17/2024 18:35:58 08/14/19 25 08/17/2024 URINE CULTU RE, ROUTI NE antimicrobia l susceptibili ty Commen t S = Susce ptibl e; I = Inter media te; R = Resis tant P = Posit linn; N = Negat linn MICS are expre ssed in micro grams per mL Antib iotic RSLT# 1 RSLT# 2 RSLT# 3 RSLT# 4 Amoxi cilli n/Cla vulan ic Acid S<=2 Ampic illin S =4 Cefaz madhav S =2 Cefep radha S<=0. 12 Cefox itin S<=4 Cefpo doxim e S =0.5 Ceftr iaxon e S<=0. 25 Cipro floxa celso S<=0. 06 Ertap enem S<=0. 12 Genta micin S<=1 Levof loxac in S<=0. 12 Merop enem S<=0. 25 Nitro furan toin S<=16 Piper acill in/Ta zobac schneider S<=4 Tetra cycli ne S<=1 Tobra mycin S<=1 Trime thopr im/Armstrong lfa S<=20 Not Available [facility] ([facility]) [address], [place], [address], 08/17/2024 18:35:58 08/14/19 25 08/19/2024 COMPL IANCE DRUG MURALI SIS, UR summary report (summary) FINAL ===== ===== ===== ===== ===== ===== ===== ===== ===== ===== ===== ===== ===== === TOXAS SURE COMP DRUG MURALI SIS,U R ===== ===== ===== ===== ===== ===== ===== ===== ===== ===== ===== ===== ===== === Test Resul t Flag Units Drug Prese nt Gabap entin PRESE NT Aceta minop hen PRESE NT Ibupr ofen PRESE NT Diphe nhydr amine PRESE NT Dextr orpha n/Lev orpha nol PRESE NT Dextr orpha n is an expec ricky metab olite of dextr ometh orpha n, an over- the-c ounte r or presc ripti on cough suppr essan t. Levor phano l is a sched uled presc ripti on medic ation . Dextr orpha n canno t be disti nguis hed from levor phano l by the metho d used for murali sis. Guaif enesi n PRESE NT Guaif enesi n may be admin ister ed as an over- the-c ounte r or presc ripti on drug; it may also be prese nt as a break down produ ct of metho carba mol. ===== ===== ===== ===== ===== ===== ===== ===== ===== ===== ===== ===== ===== === Test Resul t Flag Units Ref Range Creat inine 20 mg/dL >=20 ===== ===== ===== ===== ===== ===== ===== ===== ===== ===== ===== ===== ===== === Decla red Medic ation s: Medic ation list was not provi ded. ===== ===== ===== ===== ===== ===== ===== ===== ===== ===== ===== ===== ===== === For clini shayna consu ltati on, pleas e call . ===== ===== ===== ===== ===== ===== ===== ===== ===== ===== ===== ===== ===== === Not Available [facility] ([facility]) [address] [facility] [address], [place], [address], 08/19/2024 18:35:51 08/14/19 25 08/19/2024 COMPL IANCE DRUG MURALI SIS, UR pdf . Not Available [facility] ([facility]) [address] [facility] [address] [facility], [place], [address], 08/19/2024 18:35:51 08/14/19 25 08/14/2024 urina lysis , dipst ick Leukocytes Trace Not Available [address] [place], [address], 08/14/2024 08:29:31 08/14/19 25 08/14/2024 urina lysis , dipst ick Nitrite positi ve Not Available [address] [place], [address], 08/14/2024 08:29:31 08/14/19 25 08/14/2024 urina lysis , dipst ick Urobilinogen .2 Not Available [address] [place], [address], 08/14/2024 08:29:31 08/14/19 25 08/14/2024 urina lysis , dipst ick Protein Negati ve Not Available [address] [place], [address], 08/14/2024 08:29:31 08/14/19 25 08/14/2024 urina lysis , dipst ick pH 7.0 Not Available [address] [place], [address], 08/14/2024 08:29:31 08/14/19 25 08/14/2024 urina lysis , dipst ick Blood Non-He molyze d: Trace Not Available [address] [place], [address], 08/14/2024 08:29:31 08/14/19 25 08/14/2024 urina lysis , dipst ick Specific [place] 1.020 Not Available [address] [place], [address], 08/14/2024 08:29:31 08/14/19 25 08/14/2024 urina lysis , dipst ick Ketone Negati ve Not Available [address] [place], [address], 08/14/2024 08:29:31 08/14/19 25 08/14/2024 urina lysis , dipst ick Bilirubin Negati ve Not Available [address] [place], [address], 08/14/2024 08:29:31 08/14/19 25 08/14/2024 urina lysis , dipst ick Glucose Negati ve Not Available [address] [place], [address], 08/14/2024 08:29:31 12/27/19 25 01/02/2025 COMPL IANCE DRUG MURALI SIS, UR summary report (summary) FINAL ===== ===== ===== ===== ===== ===== ===== ===== ===== ===== ===== ===== ===== === TOXAS SURE COMP DRUG MURALI SIS,U R ===== ===== ===== ===== ===== ===== ===== ===== ===== ===== ===== ===== ===== === Test Resul t Flag Units Drug Prese nt Gabap entin PRESE NT Ibupr ofen PRESE NT Diphe nhydr amine PRESE NT ===== ===== ===== ===== ===== ===== ===== ===== ===== ===== ===== ===== ===== === Test Resul t Flag Units Ref Range Creat inine 41 mg/dL >=20 ===== ===== ===== ===== ===== ===== ===== ===== ===== ===== ===== ===== ===== === Decla red Medic ation s: Medic ation list was not provi ded. ===== ===== ===== ===== ===== ===== ===== ===== ===== ===== ===== ===== ===== === For clini shayna consu ltati on, pleas e call . ===== ===== ===== ===== ===== ===== ===== ===== ===== ===== ===== ===== ===== === Not Available [facility] ([facility]) [address] , [place], [address], 01/02/2025 09:38:35 12/27/19 25 01/02/2025 COMPL IANCE DRUG MURALI SIS, UR pdf . Not Available [facility] ([facility]) [address] [place], [address], 01/02/2025 09:38:35 12/27/1912/31/2024 URINE CULTU RE, ROUTI NE urine culture, routine Final report abnormal Not Available [facility] ([facility]) [address] [facility] [address] [facility], [place], [address], 01/02/2025 09:38:36 12/27/1912/31/2024 URINE CULTU RE, ROUTI NE result 1 Escher ichia coli abnormal Cefaz madhav with an DYLAN <=16 predi cts susce ptibi lity to the oral agent s cefac angel, cefdi chidi, cefpo doxim e, cefpr ozil, cefur oxime , cepha lexin , and lorac arbef when used for thera py of uncom plica ricky urina ry tract infec tions due to E. coli, Klebs iella pneum oniae , and Prote us mirab ilis. Great er than 100,0 00 colon y formi ng units per mL Not Available [facility] ([facility]) [address] [facility], [place], [address], 01/02/2025 09:38:36 12/27/1912/31/2024 URINE CULTU RE, ROUTI NE antimicrobia l susceptibili ty Commen t S = Susce ptibl e; I = Inter media te; R = Resis tant P = Posit linn; N = Negat linn MICS are expre ssed in micro grams per mL Antib iotic RSLT# 1 RSLT# 2 RSLT# 3 RSLT# 4 Amoxi cilli n/Cla vulan ic Acid S =4 Ampic illin S =8 Cefaz madhav S =2 Cefep radha S<=0. 12 Cefox itin S<=4 Cefpo doxim e S =0.5 Ceftr iaxon e S<=0. 25 Cipro floxa celso S<=0. 06 Ertap enem S<=0. 12 Genta micin S<=1 Levof loxac in S<=0. 12 Merop enem S<=0. 25 Nitro furan toin S<=16 Piper acill in/Ta zobac schneider S<=4 Tetra cycli ne R>=16 Tobra mycin S<=1 Trime thopr im/Armstrong lfa S<=20 Not Available [facility] ([facility]) [address], [place], [address], 01/02/2025 09:38:36 12/27/19 25 12/26/2024 urina lysis , dipst ick Leukocytes Negati ve Not Available [address] [place], [address], 12/26/2024 11:21:06 12/27/19 25 12/26/2024 urina lysis , dipst ick Nitrite positi ve Not Available [address] [place], [address], 12/26/2024 11:21:06 12/27/19 25 12/26/2024 urina lysis , dipst ick Urobilinogen .2 Not Available [address] [place], [address], 12/26/2024 11:21:06 12/27/19 25 12/26/2024 urina lysis , dipst ick Protein Negati ve Not Available [address] [place], [address], 12/26/2024 11:21:06 12/27/19 25 12/26/2024 urina lysis , dipst ick pH 5.5 Not Available [address] [place], [address], 12/26/2024 11:21:06 12/27/19 25 12/26/2024 urina lysis , dipst ick Blood Non-He molyze d: Trace Not Available [address] [place], [address], 12/26/2024 11:21:06 12/27/19 25 12/26/2024 urina lysis , dipst ick Specific [place] 1.010 Not Available [address] [place], [address], 12/26/2024 11:21:06 12/27/19 25 12/26/2024 urina lysis , dipst ick Ketone Negati ve Not Available [address] [place], [address], 12/26/2024 11:21:06 12/27/19 25 12/26/2024 urina lysis , dipst ick Bilirubin Negati ve Not Available [address] [place], [address], 12/26/2024 11:21:06 12/27/19 25 12/26/2024 urina lysis , dipst ick Glucose Negati ve Not Available [address] [place], [address], 12/26/2024 11:21:06 02/11/20 24 02/09/2024 cardi ac stres s test No observ ation record ed. [address], [place], [address], 02/13/2024 07:59:46 02/11/20 24 02/09/2024 nucle ar stres s test No observ ation record ed. [address], [place], [address], 02/13/2024 08:00:06 02/13/20 24 02/09/2024 trans -thor acic echoc ardio gram (TTE) (PROC ) No observ ation record ed. [address], [place], [address], 02/14/2024 08:22:30 01/16/20 25 01/14/2025 CT, angio gram, coron christiano arter ies, w/wo contr ast No observ ation record ed. [address], [place], [address], 01/16/2025 07:50:07 Result Notes None recorded. Problems Name Problem SNOMED Code Status Onset Date Resolution Date Notes Provider Name and Address Organization Details Recorded Time Asthma [id number] Completed 201501/21/2021 Eri Sy null, [place] - [facility] 1 10:32:07 Hypertjhon deeanastasia nicolein g Completed 201505/19/2016 Crystal Jigna null, [place] - [facility] 6 08:44:56 [facility]ia l edin price 34282693 Active 2015 Vy Ryan APRN [address], [place], [address] , [place] - [facility] 2 08:23:02 Cauda equina syndrome 751145982 Active 2015 Crystal Jign[place] [facility] 6 08:45:17 Fibromya lgia 824283273 Active 2015 Vy Ryan APRN [address], [place], [address] , [place] [facility] 2 08:23:01 Obesity 195056458 Active 2015 Crystal [place]ign[place] [facility] 6 08:45:31 Nerve injury 44740574 Active 2015 Crystal [place] [facility] 6 08:45:44 Asthma-c hronic obstruct linn pulmonar y disease overlap syndrome [id number] 998328 Active 2016 Vy Ryan APRN [address], [place], [address] , [place] [facility] 2 08:23:01 Habitual snoring 504342339 Completed 201801/20/2019 Eri Kerrie [place] - [facility] 9 18:19:59 Obstruct linn sleep apnea syndrome 98750252 Active 2018 on cpap Vy Ryan, [employer] [address], [place], [address] , [place] [facility] 2 08:23:02 Mixed anxiety and depressi ve disorder 538608647 Active 2019 Julissa Saavedra [place] [facility] 0 10:56:41 Electroc ardiogra m abnormal 730717346 Active 2021 Abhi Uribe [place] [facility] 2 11:11:44 Insomnia 286365272 Active 2021 Abhi Uribe [place] [facility] 2 11:13:26 Body mass index 40+ - severely obese 336259817 Active 2021 Vy Ryan, [employer] [address], [place], [address] , [place] [facility] 2 08:23:02 Coronary arterios clerosis 97995715 Active 2021 bijan 2021- cath with 20-30 perc diffuse dz. diastoli c dysfunct ion Abhi Uribe [place] [facility] 2 16:40:22 Restless legs 35920675 Active 2021 Vy Ryan, [employer] [address], [place], [address] , [place] [facility] 2 08:23:01 Neurogen ic urinary bladder 793040401 Active 2021 Vy Ryan, [employer] [address], [place], [address] , [place] [facility] 2 08:23:01 Acute urinary tract infectio n 272813976 Completed 202108/01/2022 Crystal Jign[place] [facility] 3 08:09:50 Hyperlip idemia 50994546 Active 2021 Vy Ryan, [employer] [address], [place], [address] , [place] [facility] 2 08:39:47 Neuropat hy 875475337 Active 2022 Vy Ryan, [employer] [address], [place], [address] , [place] [facility] 3 08:37:59 Elevated blood-pr essure reading without diagnosi s of hyperten dee 025109052 Active 2022 Vy Ryan, [employer] [address], [place], [address] , [place] [facility] 3 09:11:32 Petechia e of skin 295785831 Active 2022 Vy Ryan, [employer] [address], [place], [address] , [place] [facility] 3 11:15:53 Cobalami n deficien cy 738296221 Active 2023 Vy Ryan, [employer] [address], [place], [address] , [place] [facility] 4 09:41:25 Disorder of vitamin B12 840889074 Active 2023 Vy Ryan, [employer] [address], [place], [address] , [place] [facility] 4 10:10:24 Abnormal urine odor 4274014 Active 2023 Vy Ryan, [employer] [address], [place], [address] , [place] [facility] 5 11:20:57 Vitamin D deficien cy 00826412 Active 2023 Vy Ryan, [employer] [address], [place], [address] , [place] [facility] 4 10:16:10 Recurren t urinary tract infectio n 004867109 Active 2023 Vy Ryan, [employer] [address], [place], [address] , [place] [facility] 4 14:32:51 Mitral valve regurgit ation 77897065 Active 2023 moderate per echo 02/09/24 Vy Ryan, [employer] [address], [place], [address] , [place] [facility] 4 12:56:47 Atrial dilatati on 45820141 Active 2023 severe bilatera l dilatati on per echo 02/09/24 Vy Ryan, [employer] [address], [place], [address] , [place] [facility] 4 12:57:25 Muscle pain 85917875 Active 2023 Vy Ryan APRN [address], [place], [address] , [place] [facility] 4 12:56:14 Constipa tion 49196855 Active 2023 Vy Ryan APRN [address], [place], [address] , [place] [facility] 4 09:01:59 Malodoro us urine 759746309 Active 2023 Vy Ryan APRN [address], [place], [address] , [place] [facility] 4 09:04:51 Inspirat ory wheezing 36583631 Active 2024 Vy Ryan APRN [address], [place], [address] , [place] [facility] 5 08:35:34 Problem Notes None recorded. Procedures Surgical History Date Name Laterality Status Provider Name and Address Organization Details Recorded Time 03/06/20 24 Advance Care Planning completed Crystal Jigna [place] - [facility] 03/06/2024 08:25:53 03/06/20 24 Functional Status Assessed completed Crystal Jigna [place] [facility] 03/06/2024 08:25:53 05/12/20 23 Date of Last Mammogram completed Crystal Jigna [place] [facility] 05/15/2023 08:58:53 08/01/19 23 Advance Care Planning completed Crystal Jigna [place] [facility] 08/01/2022 08:08:09 08/01/19 23 Functional Status Assessed completed Crystal Jigna [place] [facility] 08/01/2022 08:08:09 09/17/19 20 Systolic B/P less than 130 mm Hg completed Crystal Jigna [place] [facility] 09/17/2019 09:20:12 09/17/19 20 Diastolic B/P less than 80 mm Hg completed Crystal Jigna [place] [facility] 09/17/2019 09:20:14 06/15/20 18 Colonoscopy completed Chrissy Bush [place] [facility] 08/09/2018 11:11:11 06/30/20 09 Back Surgery completed Crystal Jigna [place] [facility] 07/26/2023 08:15:30 07/03/18 87 Hemorrhoidectomy completed Crystal Jigna [place] [facility] 08/01/2022 08:09:18 07/03/18 85 Gastric Bypass completed Crystal Jigna [place] [facility] 03/06/2024 08:26:15 07/03/18 82 Gastric Bypass completed Crystal Jigna [place] [facility] 08/01/2022 08:09:18 operation on [place] cord completed Ericka Oz [place] [facility] 11/04/2021 16:35:19 Cholecystectomy, open completed Crystal Jigna [place] [facility] 05/19/2016 08:46:25 Conization of cervix completed Crystal Jigna [place] [facility] 05/19/2016 08:46:36 Gastric Bypass completed Crystal [place]igna [place] [facility] 05/19/2016 08:46:42 Imaging Results None recorded. Procedure Notes None recorded. Medical Equipment None Reported. Allergies Allergen ID Allergen Name Allergen Category Reaction Reaction Severity Criticality Documentation Date Start Date Code Code System Note Provider Name and Address Organization Details Recorded Time 01048 Bactrim medicatio n hives Not available Not available 04/08/20162010 46411 9 RxNorm React ion: hives ; Not Available [facility] 6 09:23:20 Medications Name Sig Start Date Stop Date Status Note LastModified by Organization Details LastModified Time Prescript ion - Renewal 02/13 completed [facility] Not Available Not Available Not Available cyclobenz aprine 10 mg tablet 1 po tid prn 02/06 completed cycloben zaprine 10 mg oral tablet;R ecorded Status: Recorded on: 03/23/20 08 10:38PM; Disconti nued Status: Disconti nued on: 02/07/20 12 9:49AM;U ser: [email or web address] Not Available Not Available Not Available furosemid e 40 mg tablet TAKE ONE (1) TABLET EVERY DAY BY ORAL ROUTE FOR 30 DAYS. 03/19 completed Not Available Not Available Not Available prednison e 10 mg tablet take 1 tablet (10 mg) by oral route 4 times per day for 3 days, then 1 tid for 3 days, then 1 bid for 3 days, then 1 qd for 3 days, then 1 qod until gone 02/06 completed predniso ne 10 mg oral tablet;R ecorded Status: Recorded on: 05/10/20 11 5:23PM;D iscontin ued Status: Disconti nued on: 02/07/20 12 9:49AM;U ser: [email or web address] ;Est. Completi on: 05/11/20 11;Print ed: 05/10/20 11 Not Available Not Available Not Available gabapenti n 600 mg tablet Take 1 tablet 3 times a day by oral route for 30 days. 05/03 completed Not Available Not Available Not Available atorvasta tin 20 mg tablet TAKE ONE (1) TABLET EVERY DAY BY ORAL ROUTE AT BEDTIME. active Not Available Not Available No t Available torsemide 20 mg tablet TAKE ONE (1) TABLET EVERY DAY BY ORAL ROUTE FOR 90 DAYS. active Not Available Not Available No t Available citalopra m 40 mg tablet Take 1 tablet every day by oral route for 90 days. 02/21 completed Not Available Not Available Not Available trazodone 50 mg tablet TAKE ONE (1) TABLET EVERY DAY BY ORAL ROUTE AT BEDTIME FOR 30 DAYS. 02/17 completed Not Available Not Available Not Available Penlac 8 % topical solution APPLY TO THE AFFECTED AREA(S) BY TOPICAL ROUTE ONCE DAILY PREFERAB LY AT BEDTIME OR 8 HOURS BEFORE WASHING 08/09 completed Not Available Not Available Not Available Proctocor t 30 mg rectal supposito ry insert 1 supposit ory (30 mg) by rectal route 2 times per day as needed for 30 days 02/06 completed Proctoco rt 30 mg rectal supposit ory;Arnav rded Status: Recorded on: 02/19/20 11 12:25PM; Disconti nued Status: Disconti nued on: 02/07/20 12 9:49AM;U ser: [email or web address] ;Est. Completi on: 05/19/20 11;Indic ation: Hemorrho ids - (4556 );Prin ricky: 02/19/20 11 Not Available Not Available Not Available aspirin 325 mg tablet one prn for pain 08/24 completed aspirin 325 mg oral tablet;R ecorded Status: Recorded on: 03/23/20 08 10:35PM; Disconti nued Status: Disconti nued on: 08/24/19 16 10:59AM; User: estepl Not Available Not Available Not Available metoprolo l succinate ER 50 mg tablet,ex tended release 24 hr TAKE ONE TABLET BY MOUTH EVERY DAY 08/09 completed Not Available Not Available Not Available ampicilli n 500 mg capsule take 1 capsule (500 mg) by oral route every 6 hours 1 hour before a meal or 2 hours after a meal for 10 days 04/07 completed ampicill in 500 mg oral capsule; Recorded Status: Recorded on: 11/26/19 11 12:08PM; Disconti nued Status: Disconti nued on: 04/07/20 11 1:45PM;U ser: lilli ;Est. Completi on: 12/06/19 11 Not Available Not Available Not Available Adipex-P 37.5 mg tablet take 1 tablet (37.5 mg) by oral route once daily one or two hours after breakfas t for 30 days 11/25 completed Adipex-P 37.5 mg oral tablet;R ecorded Status: Recorded on: 10/27/19 16 9:49AM;U ser: [email or web address];Es t. Completi on: 11/26/19 16;Indic ation: Weight Loss Manageme nt for Obese Patient (BMI >= 30) - (2780 ) Not Available Not Available Not Available lisinopri l 20 mg tablet take 1 tablet (20 mg) by oral route once daily for 30 days 12/24 completed lisinopr il 20 mg oral tablet;R ecorded Status: Recorded on: 10/15/19 10 10:42AM; Disconti nued Status: Disconti nued on: 12/25/19 10 2:05PM;U ser: [email or web address]; Est. Completi on: 01/13/20 10;Indic ation: Hyperten dee - (4019 );Prin ricky: 10/15/19 10 Not Available Not Available Not Available gabapenti n 400 mg capsule TAKE ONE (1) CAPSULE THREE (3) TIMES A DAY BY ORAL ROUTE FOR 90 DAYS. active Not Available Not Available No t Available trimethop rim 100 mg tablet TAKE 1 TABLET BY MOUTH EVERY DAY 08/04 completed Not Available Not Available Not Available ciproflox acin 500 mg tablet TAKE ONE (1) TABLET TWICE A DAY BY ORAL ROUTE FOR 7 DAYS. 04/01 completed Not Available Not Available Not Available aspirin 81 mg tablet,de layed release Take 1 tablet every day by oral route. 2023 active OTC Not Available Not Available Not Avai lable tramadol 50 mg tablet take 1-2 tablets twice per day as needed 09/16 completed Not Available Not Available Not Available bisoprolo l fumarate 5 mg tablet TAKE ONE HALF (1/2) TABLET BY MOUTH ONCE DAILY 03/05 completed Not Available Not Available Not Available Macrobid 100 mg capsule Take 1 capsule twice a day by oral route for 10 days. 01/19 completed Not Available Not Available Not Available meloxicam 7.5 mg tablet Take 1 tablet twice a day by oral route. 12/19 completed Not Available Not Available Not Available methenami ne hippurate 1 gram tablet Take 1 tablet twice a day by oral route for 90 days. active Not Available Not Available No t Available citalopra m 20 mg tablet TAKE ONE TABLET BY MOUTH DAILY 12/05 completed citalopr am 20 mg oral tablet;P rescribe Status: Prescrib ed on: 01/10/20 14 2:49PM;U ser: [email or web address] Not Available Not Available Not Available potassium chloride ER 20 mEq tablet,ex tended release(p art/cryst ) TAKE ONE (1) TABLET EVERY DAY BY ORAL ROUTE. 03/19 completed Not Available Not Available Not Available Lortab 10 mg-500 mg tablet take 1/2 - 1 tablet by oral route every 8-12 hours as needed for pain 02/06 completed Lortab 10-500 mg oral tablet;R ecorded Status: Recorded on: 06/13/20 11 6:00PM;D iscontin ued Status: Disconti nued on: 02/07/20 12 9:49AM;U ser: guttmann ;Est. Completi on: 06/23/20 11;Indic ation: Pain - (16.7809 00) Not Available Not Available Not Available Percocet 10 mg-325 mg tablet take 1 tablet by oral route every 6 hours as needed 02/06 completed Percocet 10-325 mg oral tablet;R ecorded Status: Recorded on: 07/30/19 10 1:48PM;D iscontin ued Status: Disconti nued on: 02/07/20 12 9:49AM;U ser: [email or web address] ;Indicat ion: Pain - (16.7809 00) Not Available Not Available Not Available doxycycli ne monohydra te 100 mg capsule TAKE ONE (1) CAPSULE TWICE A DAY BY ORAL ROUTE. 12/26 completed Not Available Not Available Not Available Lasix 20 mg tablet Take 1 tablet every day by oral route for 30 days. 08/09 completed Not Available Not Available Not Available cephalexi n 500 mg capsule TAKE ONE (1) CAPSULE EVERY 12 HOURS BY ORAL ROUTE FOR 7 DAYS. 07/10 completed Not Available Not Available Not Available cyanocoba ben (vit B-12) 1,000 mcg/mL injection solution INJECT ONE (1) ML EVERY MONTH BY SUBCUTAN EOUS ROUTE. 12/03 completed Not Available Not Available Not Available Lincocin 300 mg/mL injection solution Take 1 mL by injectio n route. 11/23 completed Not Available Not Available Not Available Robaxin-7 50 750 mg tablet take 1 tablet (750 mg) by oral route every 4 hours prn 02/06 completed Robaxin- 750 750 mg oral tablet;R ecorded Status: Recorded on: 06/13/20 11 5:57PM;D iscontin ued Status: Disconti nued on: 02/07/20 12 9:49AM;U ser: [email or web address] ;Est. Completi on: 07/03/19 12 Not Available Not Available Not Available gabapenti n 300 mg capsule TAKE ONE CAPSULE BY MOUTH 3 TIMES A DAY NEEDED FOR PAIN active Not Available Not Available No t Available hydrochlo rothiazid e 25 mg tablet Take 1 tablet twice a day by oral route as needed for 90 days. 12/26 completed Not Available Not Available Not Available zolpidem 5 mg tablet TAKE ONE (1) TABLET(S ) EVERY DAY BY ORAL ROUTE NEEDED FOR 30 DAYS. 01/21 completed Not Available Not Available Not Available gabapenti n 100 mg capsule Take 2 capsules every day by oral route for 30 days. 10/17 completed Not Available Not Available Not Available metoprolo l succinate ER 25 mg tablet,ex tended release 24 hr TAKE ONE (1) TABLET BY MOUTH EVERY DAY 11/04 completed Not Available Not Available Not Available dexametha sone sodium phosphate 4 mg/mL injection solution Take 1 mL by injectio n route. 11/23 completed Not Available Not Available Not Available polyethyl wilbert glycol 3350 17 gram/dose oral powder Take 17 g every day by oral route for 60 days. active Not Available Not Available No t Available zolpidem 10 mg tablet TAKE ONE (1) TABLET BY MOUTH EVERY DAY NEEDED 11/04 completed Not Available Not Available Not Available methylpre dnisolone 4 mg tablets in a dose pack TAKE DIRECTED ON PACKAGE 03/06 completed Not Available Not Available Not Available albuterol sulfate HFA 90 mcg/actua tion aerosol inhaler INHALE TWO (2) PUFFS EVERY FOUR (4) HOURS BY INHALATI ON ROUTE NEEDED FOR 7 DAYS. active Not Available Not Available No t Available Vitamin D2 1,250 mcg (50,000 unit) capsule Take 1 capsule twice a week by oral route for 30 days. 2024 active Not Available Not Available Not Avai lable Cipro 250 mg tablet take 1 tablet by oral route 2 times a day 07/12 completed Cipro 250 mg oral tablet;R ecorded Status: Recorded on: 08/30/19 13 2:32PM;D iscontin ued Status: Disconti nued on: 07/12/19 14 11:06AM; User: adarsh; Est. Completi on: 08/30/19 13;Print ed: 08/30/19 13 Not Available Not Available Not Available ketoconaz ole 2 % topical cream apply to the affected area(s) by topical route once daily for 2 weeks 02/06 completed ketocona zole 2 % topical cream;Re corded Status: Recorded on: 11/24/19 11 1:44PM;D iscontin ued Status: Disconti nued on: 02/07/20 12 9:49AM;U ser: lilli ;Est. Completi on: 12/08/19 11;Indic ation: Tinea Corporis - (1105 );Prin ricky: 11/24/19 11 Not Available Not Available Not Available Tussionex [place] ic ER 10 mg-8 mg/5 mL suspensio n,extende d release take 5 millilit ers by oral route every 12 hours prn 08/31 completed Tussione x [place] tic ER 10-8 mg/5 mL oral suspensi on,exten ded rel 12 hr;Recor ded Status: Recorded on: 06/01/20 09 3:33PM;D iscontin ued Status: Disconti nued on: 09/01/19 10 5:08PM;U ser: lilli ;Est. Completi on: 06/08/20 09;Indic ation: Cough - (7862 00) Not Available Not Available Not Available Dovray 5 mg-325 mg tablet Take 1 tablet 3 times a day by oral route as needed. 08/04 completed Not Available Not Available Not Available cefdinir 300 mg capsule Take 1 capsule every 12 hours by oral route for 10 days. 11/23 completed Not Available Not Available Not Available phentermi ne 37.5 mg capsule take 1 capsule (37.5 mg) by oral route once daily before breakfas t for 30 days 08/31 completed phenterm ine 37.5 mg oral capsule; Recorded Status: Recorded on: 06/01/20 09 3:33PM;D iscontin ued Status: Disconti nued on: 09/01/19 10 5:08PM;U ser: lilli ;Est. Completi on: 07/01/20 09 Not Available Not Available Not Available Bactrim DS 800 mg-160 mg tablet take 1 tablet by oral route every 12 hours for 7 days 01/14 completed Bactrim DS 800-160 mg oral tablet;R ecorded Status: Recorded on: 01/14/20 11 10:54AM; Disconti nued Status: Disconti nued on: 01/15/20 11 9:31AM;U ser: guttmann ;Est. Completi on: 01/21/20 11;Indic ation: Bacteria l Urinary Tract Infectio n - (10.5990 04) Not Available Not Available Not Available Ciprodex 0.3 %-0.1 % ear drops,pooja pension INSTILL FOUR (4) DROPS INTO AFFECTED EAR(S) BY OTIC ROUTE TWO (2) TIMES PER DAY FOR 7 DAYS 11/04 completed Not Available Not Available Not Available catheter 14 Fr-16 use as directed for 30 days 08/24 completed catheter 14-16 Fr- miscella neous misc;Rec orded Status: Recorded on: 09/01/19 10 5:25PM;D iscontin ued Status: Disconti nued on: 08/24/19 16 10:59AM; User: lilli ;Est. Completi on: 02/28/20 10;Print ed: 09/01/19 10 Not Available Not Available Not Available ketorolac 0.4 % eye drops STARTING THREE (3) DAYS BEFORE SURGERY INSTILL ONE (1) DROP INTO THE OPERATIV E EYE FOUR (4) TIMES DAILY FOR 10 DAYS THEN DECREASE TO TWICE DAILY FOR 14 DAYS THEREAFT ER. 11/04 completed Not Available Not Available Not Available Ampicilli n Trihydrat e 500 mg capsule Take 1 capsule twice a day by oral route. 08/31 completed Not Available Not Available Not Available duloxetin e 30 mg capsule,d elayed release TAKE ONE (1) CAPSULE EVERY DAY BY ORAL ROUTE. 08/01 completed Not Available Not Available Not Available duloxetin e 60 mg capsule,d elayed release Take 1 capsule every day by oral route for 90 days. 09/28 completed Not Available Not Available Not Available Cipro one bid 07/12 completed cipro 250 mg.;Arnav rded Status: Recorded on: 06/24/20 13 10:49AM; Disconti nued Status: Disconti nued on: 07/12/19 14 11:06AM; User: marti Peoples on: 07/04/19 14;Indic ation: uti - (-5) Not Available Not Available Not Available phentermi ne one daily for wt. loss 07/12 completed phenterm ine 37.5 mg.;Arnav rded Status: Recorded on: 07/25/19 13 1:37PM;D iscontin ued Status: Disconti nued on: 07/12/19 14 11:06AM; User: marti Peoples on: 08/24/19 13;Indic ation: wt. loss - (-5) Not Available Not Available Not Available Macrobid one bid 02/12 completed macrobid 100 mg.;Arnav rded Status: Recorded on: 02/07/20 12 4:56PM;D iscontin ued Status: Disconti nued on: 02/13/20 12 11:43AM; User: marti EstMeek Peoples on: 02/17/20 12;Indic ation: uti - (-5) Not Available Not Available Not Available Mobic one daily 04/16 completed mobic 7.5 mg.;Arnav rded Status: Recorded on: 07/14/19 14 1:25PM;D iscontin ued Status: Disconti nued on: 04/16/20 14 9:33PM;U ser: marti EstMeek Completmoris on: 09/13/19 14;Indic ation: pain - (-5) Not Available Not Available Not Available calcium 500 mg (as carbonate )-vitamin D3 10 mcg (400 unit) tablet Take 1 tablet every day by oral route. 08/14 completed otc Not Available Not Available Not Available diclofena c 1 % topical gel APPLY TO AFFECTED AREA TWO (2) GRAMS FOUR (4) TIMES DAILY 02/21 completed Not Available Not Available Not Available potassium chloride ER 20 mEq tablet,ex tended release Take 1 tablet every day by oral route. 03/19 completed Not Available Not Available Not Available guaifenes in ER 600 mg tablet, extended release 12 hr Take 1 tablet every 12 hours by oral route for 30 days. 11/23 completed Not Available Not Available Not Available Saxenda 3 mg/0.5 mL (18 mg/3 mL) subcutane ous pen injector 3 mg subcut daily 12/21 completed Not Available Not Available Not Available Zepbound 2.5 mg/0.5 mL subcutane ous pen injector Inject 2.5 mg every week by subcutan eous route for 28 days. 2024 active Not Available Not Available Not Avai lable Vitals Date Recorded Body height Body mass index (BMI) Body weight Heart rate Oxygen saturation Oxygen saturation in Arterial blood by Pulse oximetry Respiratory rate Pain severity - 0-10 verbal numeric rating [Score] - Reported Systolic And Diastolic Provider Name and Address Organization Details Last Updated DateTime 4 170.18 cm 43.7 kg/m2 914623. 27 g 76 /min 98 % 98 % 18 /min 6 132/80 mm[Hg] [employer] [place] - [facility] 4 08:25:34 Date Recorded Body height Body mass index (BMI) Body weight Heart rate Oxygen saturation Oxygen saturation in Arterial blood by Pulse oximetry Respiratory rate Pain severity - 0-10 verbal numeric rating [Score] - Reported Systolic And Diastolic Provider Name and Address Organization Details Last Updated DateTime 5 170.18 cm 44.2 kg/m2 002247. 05 g 58 /min 98 % 98 % 18 /min 6 128/82 mm[Hg] [facility] [place] - [facility] 5 08:12:22 Date Recorded Body height Body mass index (BMI) Body weight Heart rate Oxygen saturation Oxygen saturation in Arterial blood by Pulse oximetry Respiratory rate Pain severity - 0-10 verbal numeric rating [Score] - Reported Systolic And Diastolic Provider Name and Address Organization Details Last Updated DateTime 4 170.18 cm 43.9 kg/m2 109301. 86 g 63 /min 97 % 97 % 18 /min 8 136/84 mm[Hg] [facility] 4 09:56:56 Date Recorded Body height Body mass index (BMI) Body weight Heart rate Oxygen saturation Oxygen saturation in Arterial blood by Pulse oximetry Respiratory rate Pain severity - 0-10 verbal numeric rating [Score] - Reported Systolic And Diastolic Provider Name and Address Organization Details Last Updated DateTime 5 170.18 cm 43.9 kg/m2 896164. 86 g 77 /min 97 % 97 % 18 /min 7 122/80 mm[Hg] [facility] 5 10:55:45 Date Recorded Body height Body mass index (BMI) Body weight Heart rate Oxygen saturation Oxygen saturation in Arterial blood by Pulse oximetry Respiratory rate Pain severity - 0-10 verbal numeric rating [Score] - Reported Systolic And Diastolic Provider Name and Address Organization Details Last Updated DateTime 4 170.18 cm 44.2 kg/m2 980875. 05 g 52 /min 97 % 97 % 18 /min 7 132/84 mm[Hg] [facility] 4 08:42:29 Social History Question Answer Notes LastModified by Organizat ion Details LastModified Time Tobacco Smoking Status Current Some Day Smoker on occasion Ericka maciel [employer] [facility] 11/04/2021 16:34:37 Do You Have An Advance Directive? No [email or web address] Information not available 09/21/2021 Are You Blind Or Do You Have Difficulty Seeing? Yes Glasses In Use Information not available 07/26/2023 Is Blood Transfusion Acceptable In An Emergency? No Information not available 08/01/2022 What Is Your Level Of Caffeine Consumption? Occasional Information not available 08/01/2022 How Much Tobacco Do You Chew? None Information not available 08/01/2022 In The 14 Days Before Symptom Onset, Have You Had Close Contact With A Laboratory-confi rmed COVID-19 While That Case Was Ill? No Information not available 07/26/2023 In The 14 Days Before Symptom Onset, Have You Had Close Contact With A Person Who Is Under Investigation For COVID-19 While That Person Was Ill? No Information not available 07/26/2023 Have You Been To An Area Known To Be High Risk For COVID-19? No Information not available 07/26/2023 Are You Deaf Or Do You Have Serious Difficulty Hearing? No Information not available 08/01/2022 What Type Of Diet Are You Following? REGULAR [email or web address] Information not available 05/02/2017 Have You Processed Blood Or Body Fluids From An Ebola Virus Disease Patient Without Appropriate PPE? No Information not available 07/26/2023 Do You Reside In Or Have You Traveled To An Area Where Ebola Virus Transmission Is Active? No Information not available 07/26/2023 What Is The Highest Grade Or Level Of School You Have Completed Or The Highest Degree You Have Received? [id number] Information not available 07/26/2023 Have There Been Any Changes To Your Family Or Social Situation? No Information not available 07/26/2023 What Is The Fluoride Status Of Your Home? Non-fluoridat ed Information not available 07/26/2023 Have You Recently Or Are You Planning To Travel To An Area With Zika Virus? No Information not available 07/26/2023 Live Alone Or With Others? With Others Information not available 07/26/2023 Do You Have A Medical Power Of Bank Vault Clerk? No Information not available 07/26/2023 What Was The Date Of Your Most Recent Tobacco Screening? 12/26/2024 Information not available 12/26/2024 How Many Children Do You Have? 1 Information not available 08/01/2022 Do You Use Protection During Sex? No Information not available 07/26/2023 Do You Use Protection Against STDs? No Information not available 08/01/2022 What Is Your Relationship Status? [email or web address] Information not available 05/02/2017 Do You Use Your Seat Belt Or Car Seat Routinely? Yes Information not available 08/01/2022 Are You Sexually Active? Yes Information not available 08/01/2022 Do You Have Smoke And Carbon Monoxide Detectors In Your Home? Yes [email or web address] Information not available 09/21/2021 At What Age Did You Start Smoking Tobacco? 15 Information not available 11/04/2021 Are You Passively Exposed To Smoke? No [email or web address] Information not available 09/21/2021 How Much Tobacco Do You Smoke? 1 PPW Information not available 08/01/2022 Do You Use Sunscreen Routinely? No Information not available 08/01/2022 Has Tobacco Cessation Counseling Been Provided? Yes Information not available 07/26/2023 On What Date Was Tobacco Cessation Counseling Provided? 12/26/2024 Information not available 12/26/2024 How Many Years Have You Smoked Tobacco? 40 Off And On Information not available 11/04/2021 Do You Have Difficulty Walking Or Climbing Stairs? No Information not available 07/26/2023 Sex: Female Functional Status Question Answer Note LastModified by Cennox ion Details LastModified Time Do you use any illicit or recreational drugs? No Information not available 08/01/2022 Do you or have you ever used any other forms of tobacco or nicotine? No Information not available 07/26/2023 What is your level of alcohol consumption? None Information not available 09/21/2021 Do you or have you ever used smokeless tobacco? Never used smokeless tobacco Information not available 08/01/2022 Are you currently employed? No Information not available 08/01/2022 Do you have transportation difficulties? No Information not available 07/26/2023 Are you able to walk? YESASSIST Information not available 07/26/2023 Do you have difficulty doing errands alone? No Information not available 07/26/2023 Are you able to care for yourself independently? Yes [email or web address] Information not available 05/02/2017 Do you have difficulty dressing, bathing, grooming, or toileting? No Information not available 07/26/2023 Do you or have you ever used e-cigarettes or vape? Never used electronic cigarettes Information not available 08/01/2022 What is your exercise level? Moderate Information not available 03/06/2024 Mental Status Question Answer Note LastModified by Organizat ion Details LastModified Time Do you feel stressed (tense, restless, nervous, or anxious, or unable to sleep at night)? [id number] Information not available 08/01/2022 Do you have difficulty concentrating, remembering or making decisions? No Information no t available 07/26/2023 Family History Relationship Description Onset Age of this Age Resolved Age Notes LastModified by Organization Details LastModified Time Father Coronary arterioscler osis Not available 2015 08:46:00 Brother Type 2 diabetes mellitus Not available 2015 08:46:13 Sister Type 2 diabetes mellitus Not available 2015 08:46:13 Medical History Condition Response Other Kidney or Bladder Problems Y Muscle, Joint, or Bone Problems Y Obesity Y Arthritis Y Asthma Y Fibromyalgia N Hypertension N Gynecological History Statement/Question Response Abnormal Pap Y Date of Last Mammogram 05/12/2023 Date of LMP 07/03/2014 Post Menopausal Bleeding N STIs/STDs N HPV Vaccine N Most Recent Mammogram Current Control Method N/A Age at Menarche 15 Age at First Child 24 If Post Menopausal, Age at Menopause 49 Date of Last Colonoscopy Sexually Active? Y Menses Monthly N Sexual Problems? N Hormone Replacement Therapy N Obstetrics History GPAL:G 0 P 0 0 0 0 Immunizations Vaccine Type Date Status Note Provider Name and Address Organization Details Recorded Time Tdap 05/02/20 17 cancelled patient objection Not Available [facility] 07/20/2019 03:54:44 Influenza, split virus, quadrivalent, preservative 08/01/19 23 cancelled patient objection Vy Ryan, [employer] [address], [address], [place] - [facility] 08/01/2022 14:05:53 Td (adult), 2 Lf tetanus toxoid, preservative free, adsorbed 11/07/18 98 completed RIA Nguyễn - [facility] 05/12/2022 08:14:03 COVID-19, mRNA, LNP-S, PF, 100 mcg/0.5mL dose or 50 mcg/0.25mL dose 04/07/20 21 completed Crystal Jigna raheem, RIA - [facility] 05/12/2022 08:14:03 COVID-19, mRNA, LNP-S, PF, 100 mcg/0.5mL dose or 50 mcg/0.25mL dose 03/10/20 21 completed Crystal Jigna null, RIA - [facility] 05/12/2022 08:14:03 Past Encounters Encounter ID Performer Location Encounter Start Date Encounter Closed Date Diagnosis/Indication Diagnosis SNOMED-CT Code Diagnosis ICD10 Code Diagnosis Note [id number] [facility] [address] [place] [address] 04/16/2014 00:00:00 [id number] [facility] [address] [place] [address] 10/27/2015 00:00:00 [id number] [facility] [address] [place] [address] 08/30/2012 00:00:00 [id number] [facility] [address] [place] [address] 06/21/2013 00:00:00 [id number] [facility] [address] [place] [address] 04/16/2014 00:00:00 [id number] [facility] [address] [place] [address] 08/24/2015 00:00:00 [id number] Cammy Gonsales [place] [address] [place] [address] 05/19/2016 08:36:49 05/19/2016 09:36:15 Urinary tract infectious disease 85121230 N39.0 Essential hypertension 04992451 I10 Obesity 314727674 E66.9 BMI 47.9 Depressive disorder 3548 9007 F32.1 Fibromyalgia 225131062 M 79.7 [id number] Cammy Gonsales [facility] [address] [place] [address] 08/17/2016 09:18:21 08/18/2016 08:42:24 Obesity 787302935 E66.9 BMI 47.9 Depressive disorder 3548 9007 F32.1 Fatigue 50420650 R53.83 Asthma-chr onic obstructive pulmonary disease overlap syndrome 1380818262 2677511 J44.9 [id number] Cammy Gonsales [address] [place] [address] 05/02/2017 08:22:22 05/02/2017 09:35:10 Renewal of prescription 073547251 Z76.0 Active or passive immunization 732719458 Z23 Body mass index 40+ - severely obese 471864808 Z68.42 Acute urin christiano tract infection 375117038 N39.0 Morbid obesity 001525961 E66.01 discussed with pt options for bariatric surgery, she has had a gastric bypass [id number] Imani Cortez [address] [place] [address] 06/08/2017 09:47:33 06/08/2017 10:31:34 Pain in left knee 2370340372 89379 M25.858 [id number] Eri Sy [address] [place] [address] 08/31/2017 10:48:58 08/31/2017 12:29:17 Fibromyalgia 622522415 M79.7 Nerve injury 59962662 S1 4.9XXD Body mass index 40+ - severely obese 817855585 Z68.42 Depressive disorder 3548 9007 F32.1 Asthma-chr onic obstructive pulmonary disease overlap syndrome 5747467994 1167013 J44.9 Obesity 163018713 E66.9 Cauda equina syndrome 19 3612449 G83.4 Renewal of prescription 781984692 Z76.0 Insomnia 819576859 G47.0 0 Vitamin D deficiency 347 63897 E55.9 [id number] Eri Sy [place] [address] [place] [address] 12/19/2017 12:53:55 12/19/2017 15:19:29 Fibromyalgia 165261473 M79.7 Nerve injury 84588910 S1 4.9XXD Essential hypertension 84354476 I10 Recurrent urinary tract infection 524038200 N39.0 Renewal of prescription 859091128 Z76.0 Edema of l ower extremity 509669788 R60.0 [id number] Sandra Rolo[address] [place] [place] [address] 01/29/2018 08:34:49 01/29/2018 09:33:59 Abdominal pain 64936374 R10.9 Nausea and vomiting 1691999 R11.2 Diarrhea 99454271 R19.7 [id number] Sandra Rolo[address] [place] [address] 02/15/2018 08:55:28 02/15/2018 09:56:08 Osteoarthritis of left knee joint 1527346572 63107 M17.10 Fibromyalgia 838260235 M 79.7 Infectious colitis 73671 005 A09 [id number] Erijhon Sy[address] [place] [address] 03/29/2018 09:02:02 03/29/2018 10:27:47 Fibromyalgia 067768966 M79.7 Nerve injury 97033034 S1 4.9XXD Screening for malignant neoplasm of colon 777362046 Z12.11 Osteoarthritis 709890407 M19.90 Renewal of prescription 927890064 Z76.0 Edema of l ower extremity 932182964 R60.0 Essential hypertension 74951631 I10 Vitamin D deficiency 347 38387 E55.9 Onychomycosis 775295221 B35.[id number] [place] [address] 08/09/2018 10:24:54 08/09/2018 11:54:07 Asthma-chronic obstructive pulmonary disease overlap syndrome 4667798350 3821776 J44.9 Cauda equina syndrome 19 3394847 G83.4 Asthma 981793653 J45.90 9 Fibromyalgia 964441006 M 79.7 Obesity 952577257 E66.9 Nerve injury 78388646 S1 4.9XXD Essential hypertension 79571976 I10 Renewal of prescription 862045536 Z76.0 Osteoarthr itis of left knee joint 2406199574 30072 M17.12 Viral screening 42106489 4 Z11.59 Screening mammography 24 317009 Z12.31 [id number] Eri Sy [address] [place] [address] 09/24/2018 13:49:31 09/24/2018 15:24:19 Upper respiratory infection 78694393 J06.9 Cauda equina syndrome 19 1126209 G83.4 Fibromyalgia 233836662 M 79.7 Obesity 999225735 E66.9 Nerve injury 14886926 S1 4.9XXD Essential hypertension 49756338 I10 Asthma-chr onic obstructive pulmonary disease overlap syndrome 1108250280 8449044 J44.9 Edema of l ower extremity 244980116 R60.0 [id number] Eri Sy [address] [place] [address] 11/23/2018 13:19:31 11/23/2018 13:56:43 Obesity 375014441 E66.9 Cauda equina syndrome 19 3644962 G83.4 Fibromyalgia 145179341 M 79.7 Nerve injury 43362489 S1 4.9XXD Renewal of prescription 069240240 Z76.0 Essential hypertension 14722006 I10 Osteoarthr itis of left knee joint 0989837479 93964 M17.12 [id number] Eri Sy [address] [place] [address] 09/17/2019 09:00:24 09/17/2019 10:21:24 Essential hypertension 13053579 I10 Fibromyalgia 377243818 M 79.7 Mixed anxi ety and depressive disorder 126297833 F41.8 Nerve injury 71678948 S1 4.9XXD Osteoarthr itis of knee 355661505 M17.9 [id number] Eri Sy [address] [place] [address] 08/04/2020 14:42:47 08/04/2020 15:21:38 Mixed anxiety and depressive disorder 068310906 F41.8 Obstructiv e sleep apnea syndrome 29145394 G47.33 Insomnia 148800201 G47.0 0 Essential hypertension 42937167 I10 [id number] Eri Sy APRN [address] [place] [address] 01/21/2021 09:59:23 01/21/2021 11:13:27 General examination of patient 357036136 Z00.00 Screening for cardiovascular system disease 812544540 Z13.6 Endocrine/ metabolic screening 018182118 Z13.228 Exercises education, guidance, and counseling 608783972 Z71.82 Dietary ma nagement surveillance 843004559 Z71.3 Cauda equina syndrome 19 8933352 G83.4 Insomnia 974170990 G47.0 0 Asthma-chr onic obstructive pulmonary disease overlap syndrome 4532190842 4794077 J44.9 Essential hypertension 27223981 I10 Fibromyalgia 271018448 M 79.7 stable Mixed anxi ety and depressive disorder 909243581 F41.8 stable Hyperglycemia 11026267 R 73.9 Chronic constipation 236 773455 K59.09 Edema of l ower extremity 905654342 R60.0 Venous sta sis ulcer co-occurrent with edema of lower leg 2830266273 9100 I83.542 [id number] Abhi Uribe [address] [place] [address] 09/21/2021 10:01:47 09/21/2021 11:28:19 Cauda equina syndrome 990858217 G83.4 Body mass index 40+ - severely obese 943798272 Z68.42 Insomnia 063915764 G47.0 0 Bradycardia 89659045 R00 .1 Sinus bradycardia 723893 05 R00.1 Electrocar diogram abnormal 285901573 R94.31 sinus mindy with possible epsilon waves Edema of l ower extremity 359122957 R60.0 Essential hypertension 72192552 I10 Otitis ext kelly of right ear 1574070410 497742 H60.91 [id number] Abhi Uribe [address] [place] [address] 11/04/2021 16:08:13 11/04/2021 17:14:03 Electrocardiogram abnormal 718511302 R94.31 sinus mindy with possible epsilon waves - saw dr thakkar yesterday notes in chart Body mass index 40+ - severely obese 958625215 Z68.42 Morbid obesity 942509275 E66.01 Essential hypertension 70800654 I10 Coronary arteriosclerosis 28667573 I25.10 [id number] Abhi Uribe [address] [place] [address] 12/21/2021 08:06:29 12/21/2021 09:21:51 Essential hypertension 94076785 I10 Coronary arteriosclerosis 44138870 I25.10 Restless legs 50708105 G 25.81 Prediabetes 866465861 R7 3.03 Acute urin christiano tract infection 907881778 N39.0 Neurogenic urinary bladder 468397906 N31.9 Body mass index 40+ - severely obese 477546284 Z68.42 Morbid obesity 837337156 E66.01 [id number] Vy Ryan [address] [place] [address] 02/21/2022 08:03:54 02/21/2022 08:57:08 Nicotine dependence 23280438 F17.200 Prediabetes 589956534 R7 3.03 Screening mammography 24 346344 Z12.31 Fibromyalgia 588234540 M 79.7 Restless legs 14590615 G 25.81 Essential hypertension 74720370 I10 Nerve injury 21752018 S1 4.9XXD Mixed anxi ety and depressive disorder 561734618 F41.8 Body mass index 40+ - severely obese 968818627 Z68.42 Morbid obesity 184023826 E66.01 Long-term current use of drug therapy 249987939 Z79.899 Acute urin christiano tract infection 068902356 N39.0 [id number] Vy Ryan [address] [place] [address] 05/12/2022 08:03:56 05/12/2022 09:08:07 Essential hypertension 43919933 I10 Mixed anxi ety and depressive disorder 029284835 F41.8 Obstructiv e sleep apnea syndrome 26645472 G47.33 Restless legs 35546998 G 25.81 Fibromyalgia 932753737 M 79.7 Neurogenic urinary bladder 931496620 N31.9 Coronary arteriosclerosis 99066044 I25.10 Nerve injury 96621037 S1 4.9XXD Insomnia 417806405 G47.0 0 High hemog lobin A1c level 882922727 R73.09 Hyperlipidemia 98849080 E78.5 [id number] Vy Ryan [address] [place] [address] 08/01/2022 08:02:15 08/01/2022 09:21:35 Adult health examination 800027011 Z00.00 Depression screening 171 215322 Z13.89 Examinatio n of blood pressure 141009834 Z01.30 Diet education 80121176 Z71.3 Counseling 389819352 Z71 .82 Exercise counseling . Patient encouraged to exercise 30 minutes 5 days a week. At [facility] ed risk for falls 663136478 Z91.81 STEADI FAST screening score of _7____. Advance care planning 71 3474532 Z71.89 Body mass index 40+ - severely obese 853023603 Z68.42 Morbid obesity 070046143 E66.01 Influenza vaccination declined 043514197 Z28.21 Neuropathy 738737262 G62 .9 Endocrine/ metabolic screening 445409602 Z13.228 Long-term drug therapy 796097992 Z79.899 Essential hypertension 83200561 I10 [id number] Vy Ryan [employer] [place] [address] [place] [address] 09/28/2022 08:30:50 09/28/2022 10:29:17 Restless legs 77439095 G25.81 Neuropathy 522575879 G62 .9 Body mass index 40+ - severely obese 072065337 Z68.42 Morbid obesity 853972018 E66.01 Elevated blood-pressure reading without diagnosis of hypertension 738290212 R03.0 sbp 150's in office this morning Long-term drug therapy 894182350 Z79.487 [id number] Vy Connor, [address] [place] [address] 10/17/2022 08:07:23 10/17/2022 09:28:05 Body mass index 40+ - severely obese 260213537 Z68.42 Morbid obesity 221901265 E66.01 Hyperlipidemia 38776951 E78.5 Petechiae of skin 275428 004 R23.3 posterior aspect of left lower leg [id number] Vy Ryan [address] [place] [address] 02/17/2023 15:47:21 02/17/2023 16:33:55 Mixed anxiety and depressive disorder 008565213 F41.8 Neuropathy 071310601 G62 .9 Hyperlipidemia 53135153 E78.5 Essential hypertension 03964905 I10 Coronary arteriosclerosis 67690806 I25.10 Fibromyalgia 112644996 M 79.7 Restless legs 13042080 G 25.81 Long-term current use of drug therapy 372330119 Z79.899 Body mass index 40+ - severely obese 030842644 Z68.41 Morbid obesity 354163424 E66.01 Nicotine dependence 5629 4008 F17.200 Screening mammography 24 782766 Z12.31 [id number] Alycia Bryant [address] [place] [address] 05/12/2023 08:48:51 05/12/2023 09:42:14 Abnormal urine odor 5162760 R82.90 Acute urin christiano tract infection 766170024 N39.0 [id number] Vysydney Ryan [address] [place] [address] 07/26/2023 08:05:43 07/26/2023 09:07:05 Insomnia 030811083 G47.00 Mixed anxi ety and depressive disorder 928975472 F41.8 Restless legs 27802509 G 25.81 Fibromyalgia 529101330 M 79.7 Hyperlipidemia 17373792 E78.5 Essential hypertension 63030781 I10 Coronary arteriosclerosis 94724191 I25.10 Body mass index 40+ - severely obese 110425701 Z68.41 Morbid obesity 153378985 E66.01 Long-term current use of drug therapy 345420034 Z79.899 Neuropathy 717401150 G62 .9 [id number] Vysydney Ryan [address] [place] [address] 12/04/2023 09:29:21 12/04/2023 10:35:52 Mixed anxiety and depressive disorder 744545904 F41.8 Neuropathy 344205090 G62 .9 Hyperlipidemia 40944638 E78.5 Essential hypertension 00526573 I10 Body mass index 40+ - severely obese 163406211 Z68.41 Morbid obesity 087135672 E66.01 Long-term current use of drug therapy 661965752 Z79.899 Abnormal urine odor 8769 003 R82.90 Vitamin D deficiency 347 14436 E55.9 Cobalamin deficiency 190 175820 E53.8 [id number] Vy Connor[address] [place] [address] 03/06/2024 08:06:17 03/06/2024 09:41:21 Adult health examination 550048694 Z00.00 Depression screening 171 670912 Z13.31 A depression screening was completed via a standardiz ed screening tool. 5 minutes were spent discussing depression screening results and risk factors. Examinatio n of blood pressure 463317685 Z01.30 Diet education 70040543 Z71.3 Counseling 664099042 Z71 .82 Exercise counseling . Patient encouraged to exercise 30 minutes 5 days a week. At [facility] risk for falls 400127608 Z91.81 STEADI FAST screening score of __9___. Advance care planning 71 7957700 Z71.89 Nicotine dependence 5629 4008 F17.200 Body mass index 40+ - severely obese 890127699 Z68.41 Morbid obesity 620676429 E66.01 Long-term current use of drug therapy 718584252 Z79.899 Malodorous urine 7586207 01 R82.998 Essential hypertension 90636844 I10 Hyperlipidemia 96863807 E78.5 [id number] Vy Ryan, [address] [place] [address] 08/14/2024 07:57:30 08/14/2024 09:01:14 Mixed anxiety and depressive disorder 802531349 F41.8 Fibromyalgia 039143605 M 79.7 Vitamin D deficiency 347 75788 E55.9 Neuropathy 063347623 G62 .9 Hyperlipidemia 92737422 E78.5 Essential hypertension 27925474 I10 Coronary arteriosclerosis 48537832 I25.10 Body mass index 40+ - severely obese 777478357 Z68.41 Morbid obesity 350489922 E66.01 Nicotine dependence 5629 4008 F17.200 Malodorous urine 1260056 01 R82.998 Long-term drug therapy 133323801 Z79.899 Inspiratory wheezing 315 39375 R06.2 [id number] Vy Ryan[address] [place] [address] 12/26/2024 10:13:49 12/26/2024 11:26:19 Essential hypertension 88745833 I10 Hyperlipidemia 59309554 E78.5 Neuropathy 950274072 G62 .9 Mixed anxi ety and depressive disorder 231359006 F41.8 Restless legs 27758888 G 25.81 Vitamin D deficiency 347 00204 E55.9 Insomnia 875893639 G47.0 0 Muscle pain 59278364 M79 .10 Nicotine dependence 5629 4008 F17.200 Body mass index 40+ - severely obese 737567701 Z68.41 Morbid obesity 464361068 E66.01 Abnormal urine odor 8769 003 R82.90 Long-term current use of drug therapy 635955377 Z79.899 Health Concerns Section Related Observation LastModified by Organization Detai ls LastModified Time None Recorded Concern Status LastModified by Organization Details LastModified Time None Recorded Advance Directives Directive N: Payers Insurance Date Sequence Insurance Name Policy Number Policy Casiano Covered Member ID Casiano Member ID Guarantor Name 08/01/2022 [employer] [place] [place]-[id number] (MEDICARE[place] Olimpia Paul [id number] Olimpia Paul 05/10/2023 [employer] (MEDICARE REPLACEMENT/ ADVANTAGE - PPO) Olimpia Paul [id number] Olimpia Sanchez Paul 12/25/2024 1 [employer] (MEDICARE REPLACEMENT/ ADVANTAGE - PPO) Olimpia Sanchez Paul [id number] Olimpia Sanchez Paul 08/01/2022 1 [place] Olimpia Sanchez Paul [id number] Olimpia Sanchez Paul 12/25/2024 [employer] (MEDICARE REPLACEMENT/ ADVANTAGE - PPO) Olimpia Sanchez Paul [id number] Olimpia Sanchez Paul 10/09/2024 1 [employer] (PPO) [id number] Olimpia Sanchez Paul [id number] Olimpia Sanchez Paul Notes Date Note Type Note Provider Name and Address Organization Details Recorded Time 4 text/html ROS as noted in the HPI Presents for follow up regarding HTN, fibromyalgia, depression, anxiety, neurogenic bladder, OSAFeeling well. No chest pain, shortness of breath, dizziness, lightheadedness, syncope, palpitations or edema. No fever, chills or cough. Constipation has been issue recently. Has been stool softeners. Compliant with medications. Smoking one pack per week. No alcohol and illicit drug usage. Vy Ryan, THI [address], [place], [address], [place] - [facility] 07/26/2023 09:06:33 4 text/html ROS as noted in the HPI Presents for follow up regarding HTN, depression,Does endorse headache, fatigue odor to urineDescribes headaches typically occurring in back of head. Occurring couple of times per week - most recently yesterdayDid have chills yesterday but no feverNo chest pain, shortness of breath, dizziness, lightheadedness, syncope, palpitations or edema.Following with urology in [place] - Dr Otero - started on MethenamineCompliant with medicationSmoking 0.25 ppdDenies alcohol and illicit drug usage. Vy Ryan, [facility] [address], [place], [address], [place] - [facility] 12/04/2023 10:34:29 4 text/html Medicare Annual Wellness VisitReported by PatientSocial/Behavioral HistoryFor diet and nutrition, patient reportshigh caloric intakeandhigh carbohydrate mealsbut reportsdiscussed vitamin and supplement use,discussed portion control,discussed maintaining calcium balance, anddiscussed diet improvement. For physical activity, patient reportsdoes not exercise on a regular basisandpoor physical conditionbut reportsdiscussed weightbearing activities. For fracture risk, patient reportsno history of fractures,no recent explained fracture,no sudden unexplained fractures, andno previous musculoskeletal injuries.Mental Status:For depression risk, patient reportsnever feels sad, empty, or tearful,no loss of interest in activities,no significant changes in weight,no sleep disturbances or insomnia,no agitation,no loss of energy,no feelings of worthlessness or guilt,no thoughts of suicide,no history of depression, andno history of mood disorders. For orientation, patient reportsno disorientation to time,no disorientation to date, andno disorientation to place. For concentration and memory, patient reportsno decreased concentrating ability,no memory lapses or loss, anddoes not forget words. For speech/motor difficulties, patient reportsno speech difficulties,no difficulty expressing formulated concepts,no difficulty with fine manipulative tasks,no difficulty writing/copying,no slowed reaction time, anddoes not knock things over when trying to pick them up.Functional AbilityFor hearing, patient reportsno loss of hearing. For vision, patient reportsno vision problems. For activities of daily living, patient reportsable to bathe with limited or no assistance,able to contol urination and bowels,able to dress with limited or no assistance,able to feed self with limited or no assistance,able to get out of chair or bed with limited or no assistance,able to groom with limited or no assistance, andable to toilet with limited or no assistance. For instrumental activities of daily living, patient reportsable to do house work with limited or no assistance,able to grocery shop with limited or no assistance,able to manage medications with limited or no assistance,able to manage money with limited or no assistance,able to prepare meals with limited or no assistance, andable to use the phone with limited or no assistance. For falls risk assessment, patient reportsno frequent falls while walking,no fall in the past year,no fall since last visit, andno dizziness/vertigo. For home safety, patient reportsno unsafe barbara hazzards,no unsafe stairs,no unsafe gas appliances,working smoke/co detectors,wears protective head gear for biking/high velocity,use of seatbelts,practicing 'safer sex',no vision or hearing loss while driving,no fire arms,has hand bars in the bathroom/shower,good lighting in the home,reviewed sun protection, andnumber of motor vehicle accidents 0. For current level of pain, patient reportsno pain: 0/10.Presents for annual medicare wellness examinationFeeling wellFollowing with chiropractor for sciatica painNo chest pain, shortness of breath, dizziness, lightheadedness, syncope, palpitations or edema. No fever, chills or cough.Is compliant with CPAP - wearing every night.Smoking 1 pack per weekDenies alcohol and illicit drug usage Vy Ryan APRN [address], [place], [address], [facility] 03/06/2024 09:47:40 5 text/html ROS as noted in the HPI Presents for follow up regarding fibromyalgia, TOREY, HLD, vitamin D deficiencyFeeling wellNo chest pain, shortness of breath, dizziness, lightheadedness, syncope, palpitations or edema. No fever or chillsDoes endorse non productive coughSmoking one pack per weekDenies alcohol and illicit drug usageCompliant with medicationDoes endorse foul odor to urine for past several weeksNo discomfort with urination. No discoloration to urine Vy Ryan APRN [address], [place], [address], [facility] - [facility] 08/14/2024 10:02:36 5 text/html ROS as noted in the HPI Presents for follow up regarding HTN, anxiety, HLD, vit D defFeeling wellNo chest pain, shortness of breath, dizziness, lightheadedness, syncope, palpitations or edema.No fever, chills or cough.Concerned regarding weight - states she has been following low calorie and carb diet for past 6 monthsDoes endorse recent odor to urine - no discoloration, no dysuria or burning upon urination Vy Ryan APRN [address], [place], [address], [facility] 12/26/2024 11:41:23 OBGyn Episode No OBEpisode recorded.
--- OUTSIDE RECORDS SUMMARY | 2025-01-25 11:41 | XMS_ITS | Clinical Summary ---
Author Organization Healthcare Address [address] [place] [address] Care Team Providers Care Environmental Engineering Professor Name Role Phone Esperanza Ryan APRN Primary [...] - Risk 60-74 years 1-dose series) 2019 [id number] Vaccine (3 - season) 2024 04/07/2021, 03/10/2021 [...] patient's age to complete this topic [place] [place] [address] MEDICARE Advance Directives Documents on File Type Date Recorded Patient Public Relations Director Expl anation Power of Sanitary Engineering Teacher 06/14/2024 Care Teams Environmental Engineering Professor Relationship Specialty Start Date End Date Esperanaz Ryan APRN [address] [place] [address] PCP - General Youth Probation Officer 06/14/24
--- OUTSIDE RECORDS SUMMARY | 2025-01-25 11:41 | XMS_ITS | Clinical Summary ---
Author Organization [facility] Address [address] [place] [address] Phone Care Team Providers Care Materials Management Clerk Name Role Phone Blas Rodriguez MD Primary Care Provider [phone] Social History Tobacco Use Types Packs/Day Years [...] EST Impressions 05/15/2023 8:09 AM EST Negative (AOJ-Gxidlmlr-6) ~ RECOMMENDATION: Routine screening mammogram in 1 [...] the next mammogram, in accordance with the [employer] and the Society of Breast Imaging recommendations. Narrative 05/15/2023 8:09 AM EST Procedure:MM MAMMO DIGITAL JUDE SCREEN BILAT ~ Reason for exam: screening, asymptomatic. Z12.31-Encounter for screening mammogram for malignant neoplasm of uxnpxd-NYR-85-CM ~ MM MAMMO DIGITAL JUDE SCREEN BILAT [...] for screening mammogram for malignant neoplasm of uiscgc-MTT-15-CM ~ MM MAMMO DIGITAL JUDE SCREEN BILAT Bilateral CC and MLO view(s) were taken. There are scattered fibroglandular densities. Prior study comparison: Compared with prior studies the most recentbeing 08/13/19, 04/25/14 No mammographic evidence of malignancy. ~ IMPRESSION: Negative (EAT-Zmepnttk-1) ~ RECOMMENDATION: Routine screening mammogram in 1 [...] the next mammogram, in accordance with the [employer] and the Society of Breast Imaging recommendations. Vy Ryan WASH HOUSE WORKER IMG MAMMOGRAPHY ORDERABLES Final Result from Last 3 Months or Most Recently Relevant to Health Maintenance Insurance [employer] MEDICARE PPO MR Care Teams Materials Management Clerk Relationship Specialty Start Date End Date Blas Rodriguez MD [address] [place] [address] PCP - General Family Medicine 04/02/14
--- OUTSIDE RECORDS SUMMARY | 2025-01-25 11:42 | XMS_ITS | Continuity of Care Document ---
Author Organization [facility] Address [address] [place] [address]. [place] [address] Assessment No assessment recorded. Plan of Treatment Reminders Order Date Submit Date Provider Last Modified By Organization Details Last Modified Time Details Appointments None recorded. Lab culture, urine 2024 [facility], [address], Jovany [address], [place], [address], 09:38:36 urinalysis, dipstick 2024 [facility], [address] [place] [address]., [place], [address], 11:44:01 drug screen, 14 drugs (detectimed ), urine 2024 [facility], [address], [address], [place], [address], 09:38:35 Referral None recorded. Procedures None recorded. Surgeries None recorded. Imaging None recorded. Medication Orders Zepbound 2.5 mg/0.5 mL subcutaneou s pen injector 2024 [facility], [address], [place], [address], 5 11:22:29 atorvastati n 20 mg tablet 2024 [facility], [address] [facility], [place], [address], 11:41:12 torsemide 20 mg tablet 2024 025 [facility], [address] [facility], [place], [address], 11:41:10 gabapentin 400 mg capsule 2024 025 [facility], [address] [facility], [place], [address], 11:22:30 Patient TargetsNo targets recorded. Patient Instructions Encounter Date Encounter Id Patient Instructions Last Modified By Organization Details Last Modified Time 12/26/2024 [id number] body mass index: care instructions Not available [...] Abnormal Flag Note LastModifiedBy Organization Detail LastModifiedTime 12/27/1901/02/2025 COMPL IANCE DRUG TANISHA SIS, UR summary report (summary) FINAL ===== ===== ===== ===== ===== ===== ===== ===== ===== ===== ===== ===== ===== === TOXAS SURE COMP DRUG TANISHA SIS,U R ===== ===== ===== ===== ===== [...] ===== ===== ===== === Not Available [facility] ([facility]) [address] , [place], [address], 01/02/2025 09:38:35 12/27/19 25 01/02/2025 COMPL IANCE DRUG TANISHA SIS, UR pdf . Not Available [facility] ([facility]) [address], [place], [address], 01/02/2025 09:38:35 12/27/1912/31/2024 URINE CULTU RE, ROUTI NE urine culture, routine Final report abnormal Not Available [facility] ([facility]) [address] [facility], [place], [address], 01/02/2025 09:38:36 12/27/1912/31/2024 URINE CULTU RE, ROUTI [...] ng units per mL Not Available [facility] ([facility]) [address] [facility], [place], [address], 01/02/2025 09:38:36 12/27/1912/31/2024 URINE CULTU RE, ROUTI [...] thopr im/Armstrong lfa S<=20 Not Available [facility] ([facility]) [address], [place], [address], 01/02/2025 09:38:36 12/27/19 25 12/26/2024 urina lysis , dipst ick Leukocytes Negati ve Not Available [address] [place], [address], 12/26/2024 11:21:06 12/27/19 25 12/26/2024 urina lysis , dipst ick Nitrite positi ve Not Available [address] [place], [address], 12/26/2024 11:21:06 12/27/19 25 12/26/2024 urina lysis , dipst ick Urobilinogen .2 Not Available [address] [place], [address], 12/26/2024 11:21:06 12/27/19 25 12/26/2024 urina lysis , dipst ick Protein Negati ve Not Available [address] [place], [address], 12/26/2024 11:21:06 12/27/19 25 12/26/2024 urina lysis , dipst ick pH 5.5 Not Available [address] [place], [address], 12/26/2024 11:21:06 12/27/19 25 12/26/2024 urina lysis , dipst ick Blood Non-He molyze d: Trace Not Available [facility] [address] [place] [address] Rd[address] [place], [address], 12/26/2024 11:21:06 12/27/19 25 12/26/2024 urina lysis , dipst ick Specific [place] 1.010 Not Available [address] [place], [address], 12/26/2024 11:21:06 12/27/19 25 12/26/2024 urina lysis , dipst ick Ketone Negati ve Not Available [address] [place], [address], 12/26/2024 11:21:06 12/27/19 25 12/26/2024 urina lysis , dipst ick Bilirubin Negati ve Not Available [address] [place], [address], 12/26/2024 11:21:06 12/27/19 25 12/26/2024 urina lysis , dipst ick Glucose Negati ve Not Available [address] [place], [address], 12/26/2024 11:21:06 01/16/20 25 01/14/2025 CT, angio gram, coron christiano arter ies, w/wo contr ast No observ ation record ed. [id number], [place], [address], 01/16/2025 07:50:07 Result Notes None recorded. Problems Name Problem SNOMED Code Status Onset Date Resolution Date Notes Provider Name and Address Organization Details Recorded Time Asthma 705141756 Completed 201501/21/2021 [facility]IA P[facility] - [facility] 10:32:07 Hyperten dee screenin g Completed 201505/19/2016 Crystal Jigna null, [place] - [facility] 6 08:44:56 Essentia l hyperten dee 47924766 Active 2015 Vy Ryan, CV RN [address], [place], [address] , [place] - [facility] 2 08:23:02 Cauda equina syndrome 897244652 Active 2015 Crystal Jigna [place] - [facility] 6 08:45:17 Fibromya lgia 907919906 Active 2015 Vy Askewggs, CV RN [address], [place], [address] , [place] - [facility] 2 08:23:01 Obesity 236716043 Active 2015 Crystal Jign[place] - [facility] 6 08:45:31 Nerve injury 15791229 Active 2015 Crystal [place]ign[place] [facility] 6 08:45:44 Asthma-c hronic obstruct linn pulmonar y disease overlap syndrome 70121879644 372608 Active 2016 Vy Askewggs, CV RN [address], [place], [address] , [place] - [facility] 2 08:23:01 Habitual snoring 912211158 Completed 201801/20/2019 Eri Sy null, [place] - [facility] 9 18:19:59 Obstruct linn sleep apnea syndrome 24093326 Active 2018 on cpap Vy Askewggs, CV RN [address], [place], [address] , [place] - [facility] 2 08:23:02 Mixed anxiety and depressi ve disorder 175461273 Active 2019 Julissa Saavedra null, [place] - [facility] 0 10:56:41 Electroc ardiogra m abnormal 061023775 Active 2021 Abhi Uribe null[place] - [facility] 2 11:11:44 Insomnia 910154086 Active 2021 Ahbi Uribe null, [place] - [facility] 2 11:13:26 Body mass index 40+ - severely obese 536064225 Active 2021 Vy Ryan, CV RN [address], [place], [address] , [place] - [facility] 2 08:23:02 Coronary arterios clerosis 27445982 Active 2021 bijan 2021- cath with 20-30 perc diffuse dz. diastoli c dysfunct ion Abhi Uribe null, [place] - [facility] 2 16:40:22 Restless legs 28450880 Active 2021 Vy Askewggs, CV RN [address], [place], [address] , [place] [facility] 2 08:23:01 Neurogen ic urinary bladder 370952065 Active 2021 Vy Connor, CV RN [address], [place], [address] , [place] - [facility] 2 08:23:01 Acute urinary tract infectio n 107219047 Completed 202108/01/2022 Crystal Jigna [place] - [facility] 3 08:09:50 Hyperlip idemia 35894687 Active 2021 Vy Askewggs, CV RN [address], [place], [address] , [place] [facility] 2 08:39:47 Neuropat hy 166181826 Active 2022 Vy Connor, CV RN [address], [place], [address] , [place] [facility] 3 08:37:59 Elevated blood-pr essure reading without diagnosi s of hyperten dee 461055981 Active 2022 Vy Connor, CV RN [address], [place], [address] , [place] [facility] 3 09:11:32 Petechia e of skin 619906429 Active 2022 Vy Ryan, CV RN [address], [place], [address] , [place] - [facility] 3 11:15:53 Cobalami n deficien cy 540911075 Active 2023 Vy Ryan, CV RN [address], [place], [address] , [place] - [facility] 4 09:41:25 Disorder of vitamin B12 570256017 Active 2023 Vy Ryan, CV RN [address], [place], [address] , [place] - [facility] 4 10:10:24 Abnormal urine odor 9119957 Active 2023 Vy Ryan, CV RN [address], [place], [address] , [place] - [facility] 5 11:20:57 Vitamin D deficien cy 43061341 Active 2023 Vy Ryan CV RN [address], [place], [address] , [place] - [facility] 4 10:16:10 Recurren t urinary tract infectio n 639303535 Active 2023 Vy Ryan, CV RN [address], [place], [address] , [place] - [facility] 4 14:32:51 Mitral valve regurgit ation 96824089 Active 2023 moderate per echo 02/09/24 Vy Ryan, CV RN [address], [place], [address] , [place] - [facility] 4 12:56:47 Atrial dilatati on 57901499 Active 2023 severe bilatera l dilatati on per echo 02/09/24 Vy Ryan, CV RN [address], [place], [address] , [place] - [facility] 4 12:57:25 Muscle pain 61093070 Active 2023 Vy Ryan, CV RN [address], [place], [address] , [place] - [facility] 4 12:56:14 Constipa tion 72758853 Active 2023 Vy Ryan, CV RN [address], [place], [address] , [place] [facility] 4 09:01:59 Malodoro us urine 597591502 Active 2023 Vy Ryan, CV RN [address], [place], [address] , [place] - [facility] 4 09:04:51 Inspirat ory wheezing 69773373 Active 2024 Vy Ryan, CV RN [address], [place], [address] , [place] - [facility] 5 08:35:34 Problem [...] Name and Address Organization Details Recorded Time 62565 Bactrim medicatio n hives Not available Not available 04/08/20162010 76136 9 RxNorm React ion: hives ; Not Available [facility] 6 09:23:20 Medications Name Sig Start Date [...] on: 05/19/20 11;Indic ation: Hemorrho ids - (07.4556 00);Prin ricky: 02/19/20 11 Not Available Not Available [...] Disconti nued on: 04/07/20 11 1:45PM;U ser: [email or web address] ;Est. Completi on: 12/06/19 11 Not Available [...] for Obese Patient (BMI >= 30) - (03.2780 02) Not Available Not Available Not Available lisinopri l 20 mg tablet take 1 tablet (20 mg) by oral route once daily for 30 days 12/24 completed lisinopr il 20 mg oral tablet;R ecorded Status: Recorded on: 10/15/19 10 10:42AM; Disconti nued Status: Disconti nued on: 12/25/19 10 2:05PM;U ser: [email or web address]; Est. Completi on: 01/13/20 10;Indic ation: Hyperten dee - (07.4019 00);Prin ricky: 10/15/19 10 Not Available Not Available [...] 12 9:49AM;U ser: [email or web address] ;Est. Completi on: 07/03/19 12 Not Available [...] Disconti nued on: 07/12/19 14 11:06AM; User: joe Peoples on: 08/30/19 13;Print ed: 08/30/19 13 Not Available Not Available Not Available ketoconaz ole 2 % topical cream apply to the affected area(s) by topical route once daily for 2 weeks 02/06 completed ketocona zole 2 % topical cream;Re corded Status: Recorded on: 11/24/19 11 1:44PM;D iscontin ued Status: Disconti nued on: 02/07/20 12 9:49AM;U ser: [email or web address] Completmoris on: 12/08/19 11;Indic ation: Tinea Corporis - (110);Prin ricky: 11/24/19 11 Not Available Not Available [...] Disconti nued on: 09/01/19 10 5:08PM;U ser: [email or web address] ;Est. Completi on: 06/08/20 09;Indic ation: Cough - (7862 ) Not Available Not Available Not Available Byers 5 mg-325 mg tablet Take 1 tablet [...] Disconti nued on: 09/01/19 10 5:08PM;U ser: [email or web address] ;Est. Completi on: 07/01/20 09 Not Available [...] nued on: 08/24/19 16 10:59AM; User: [email or web address] [email or web address] Completi on: 02/28/20 10;Print ed: 09/01/19 10 [...] nued on: 07/12/19 14 11:06AM; User: [email or web address] Completi on: 07/04/19 14;Indic ation: uti - (-5) Not Available Not Available Not Available phentermi ne one daily for wt. loss 07/12 completed phenterm ine 37.5 mg.;Arnav rded Status: Recorded on: 07/25/19 13 1:37PM;D iscontin ued Status: Disconti nued on: 07/12/19 14 11:06AM; User: [email or web address]; Est. Completi on: 08/24/19 13;Indic ation: wt. loss - (-5) Not Available Not Available Not Available Macrobid one bid 02/12 completed macrobid 100 mg.;Arnva rded Status: Recorded on: 02/07/20 12 4:56PM;D iscontin ued Status: Disconti nued on: 02/13/20 12 11:43AM; User: [email or web address]; Est. Completi on: 02/17/20 12;Indic ation: uti - (-5) Not Available Not Available Not Available Mobic one daily 04/16 completed mobic 7.5 mg.;Arnav rded Status: Recorded on: 07/14/19 14 1:25PM;D iscontin ued Status: Disconti nued on: 04/16/20 14 9:33PM;U ser: [email or web address]; Est. Completi on: 09/13/19 14;Indic ation: pain - (-5) [...] ous pen injector 3 mg subcut daily 05/05/ 2022 06/21 /2022 completed Not Available Not Available Not [...] Updated DateTime 5 170.18 cm 43.9 kg/m2 392352. 86 g 77 /min 97 % 97 % 18 /min 7 122/80 mm[Hg] Crystal Jigna [place] - [facility] 5 10:55:45 Social History Question Answer Notes LastModified by Organizat ion Details LastModified Time Tobacco Smoking Status Current Some Day Smoker on occasion Ericka maciel, [place] - [facility] 11/04/2021 16:34:37 Do You Have An Advance Directive? No [email or web address] Information not available 09/21/2021 Are You Blind [...] Type Of Diet Are You Following? REGULAR [email or web address] Information not available 05/02/2017 Have You Processed [...] Or The Highest Degree You Have Received? [id number] Information not available 07/26/2023 Have There Been [...] Do You Have A Medical Power Of Pluck Trimmer? No Information not available 07/26/2023 What Was The Date Of Your Most Recent Tobacco Screening? 12/26/2024 Information not available 12/26/2024 How Many Children Do You Have? 1 Information not available 08/01/2022 Do You Use Protection During Sex? No Information not available 07/26/2023 Do You Use Protection Against STDs? No Information not available 08/01/2022 What Is Your Relationship Status? [email or web address] Information not available 05/02/2017 Do You Use Your Seat Belt Or Car Seat Routinely? Yes Information not available 08/01/2022 Are You Sexually Active? Yes Information not available 08/01/2022 Do You Have Smoke And Carbon Monoxide Detectors In Your Home? Yes [email or web address] Information not available 09/21/2021 At What Age Did You Start Smoking Tobacco? 15 Information not available 11/04/2021 Are You Passively Exposed To Smoke? No Information not available 09/21/2021 How Much Tobacco [...] Functional Status Question Answer Note LastModified by Organizat ion Details LastModified Time Do you use any illicit or recreational drugs? No Information not available 08/01/2022 Do you or have you ever used any other forms of tobacco or nicotine? No Information not available 07/26/2023 What is your level of alcohol consumption? None [email or web address] Information not available 09/21/2021 Do you or [...] able to care for yourself independently? Yes [email or web address] Information not available 05/02/2017 Do you have [...] anxious, or unable to sleep at night)? [id number] Information not available 08/01/2022 Do you have [...] available 2015 08:46:13 Medical History Condition Response Muscle, Joint, or Bone Problems Y Other Obesity Y Arthritis Y Fibromyalgia N Kidney or Bladder Problems Y Hypertension N Asthma Y Gynecological History Statement/Question Response Abnormal Pap Y [...] 05/02/20 17 cancelled patient objection Not Available [facility] 07/20/2019 03:54:44 Influenza, split virus, quadrivalent, preservative 08/01/19 23 cancelled patient objection Vy Ryan APRN [address], [place], [address], [place] [facility] 08/01/2022 14:05:53 Td (adult), 2 Lf tetanus toxoid, preservative free, adsorbed 11/07/18 98 completed Crystal Ijgna null, [place] - [facility] 05/12/2022 08:14:03 COVID-19, mRNA, LNP-S, PF, 100 mcg/0.5mL dose or 50 mcg/0.25mL dose 04/07/20 21 completed Crystal Jign[place] [facility] 05/12/2022 08:14:03 COVID-19, mRNA, LNP-S, PF, 100 mcg/0.5mL dose or 50 mcg/0.25mL dose 03/10/20 21 completed Crystal Jign[place] [facility] 05/12/2022 08:14:03 Past Encounters Encounter ID Performer Location Encounter Start Date Encounter Closed Date Diagnosis/Indication Diagnosis SNOMED-CT Code Diagnosis ICD10 Code Diagnosis Note [id number] Vy Ryan APRN [place] [address] [place] [address] 12/26/2024 10:13:49 12/26/2024 11:26:19 Essential hypertension 53967049 I10 Hyperlipidemia 63189178 E78.5 Neuropathy 803706707 G62 .9 Mixed anxi ety and depressive disorder 339071613 F41.8 Restless legs 55534666 G 25.81 Vitamin D deficiency 347 91935 E55.9 Insomnia 241054013 G47.0 0 Muscle pain 39924639 M79 .10 Nicotine dependence 5629 4008 F17.200 Body mass index 40+ - severely obese 470120156 Z68.41 Morbid obesity 784987305 E66.01 Abnormal urine odor 8769 003 R82.90 Long-term current use of drug therapy 244840878 Z79.899 Health Concerns Section Related Observation LastModified by Organization Detai ls LastModified Time None Recorded Concern Status LastModified by Organization Details LastModified Time None Recorded Payers Encounter Date Sequence Insurance Name Policy Number Policy Casiano Covered Member ID Casiano Member ID Guarantor Name 12/26/2024 1 [employer] (MEDICARE REPLACEMENT/ ADVANTAGE - PPO) Olimpia Paul [id number] Olimpia Paul Notes Date Note Type Note Provider Name and Address Organization Details Recorded Time 12/26/2024 text/html ROS as noted in the HPI [...] no dysuria or burning upon urination Vy Ryan, CV RN [address], [place], [address], [place] - [facility] 12/26/2024 11:41:23 OBGyn Episode No OBEpisode recorded.
--- OUTSIDE RECORDS SUMMARY | 2025-01-25 11:42 | XMS_ITS | Data Portability ---
Author Organization RIA INA Solis [facility] CLOSED Address [address] [facility] [address] [place] [address] Assessment Encounter Date Assessment Date Assessment LastModified [...] Lab urinalysi s panel, auto 2024 025 [facility], [address] [place] [address] Rd, [address], [place], [address], 11/14/2024 09:19:03 culture, urine 2024 025 [facility], [address] [place] [address], [place], [address], 11/15/2024 11:14:42 urinalysi s panel, auto 2023 024 [facility], [address], [address], [place], [address], 12/17/2023 11:42:58 urinalysi s panel, auto 2023 024 [facility], [address], [address], [place], [address], 09/08/2023 11:42:58 urinalysi s panel, auto 2021 022 [facility], [address], [address], [place], [address], 06/19/2022 18:33:08 Referral None recorded. Procedures None recorded. Surgeries cystoscop y (SURG) 2023 024 [email or web address] [facility], [address], [address], [place], [address], 10/03/2023 09:49:53 Imaging None recorded. Medication Orders methenami ne hippurate 1 gram tablet 2023 024 [facility], [address] [place], [address], 09/08/2023 11:42:58 Patient TargetsNo targets recorded. Patient Instructions Encounter Date Encounter Id Patient Instructions Last Modified By Organization Details Last Modified Time 11/14/2024 [id number] - Consider tryin g Eucora supplement for [...] auto Unknown Analyte Clean Catch Not Available [facility] [address], [place], [address], 06/16/2022 08:31:17 06/16/20 22 06/16/2022 urina lysis panel , auto Unknown Analyte Yellow Not Available [facility] [address], [place], [address], 06/16/2022 08:31:17 06/16/20 22 06/16/2022 urina lysis panel , auto Unknown Analyte Clear Not Available [facility] [address], [place], [address], 06/16/2022 08:31:17 06/16/20 22 06/16/2022 urina lysis panel , auto Unknown Analyte 1.000 Not Available [facility] [address], [place], [address], 06/16/2022 08:31:17 06/16/20 22 06/16/2022 urina lysis panel , auto Unknown Analyte 1.003- 1.035 Not Available [facility] [address], [place], [address], 06/16/2022 08:31:17 06/16/20 22 06/16/2022 urina lysis panel , auto Unknown Analyte 7.0 Not Available [facility] [address], [place], [address], 06/16/2022 08:31:17 06/16/20 22 06/16/2022 urina lysis panel , auto Unknown Analyte 5.0-8. 0 Not Available [facility] [address], [place], [address], 06/16/2022 08:31:17 06/16/20 22 06/16/2022 urina lysis panel , auto Unknown Analyte Negati ve Not Available [facility] [address], [place], [address], 06/16/2022 08:31:17 06/16/20 22 06/16/2022 urina lysis panel , auto Unknown Analyte Negati ve Not Available [facility] [address], [place], [address], 06/16/2022 08:31:17 06/16/20 22 06/16/2022 urina lysis panel , auto Unknown Analyte Negati ve Not Available [facility] [address], [place], [address], 06/16/2022 08:31:17 06/16/20 22 06/16/2022 urina lysis panel , auto Unknown Analyte Negati ve Not Available [facility] [address], [place], [address], 06/16/2022 08:31:17 06/16/20 22 06/16/2022 urina lysis panel , auto Unknown Analyte Negati ve Not Available [facility] [address], [place], [address], 06/16/2022 08:31:17 06/16/20 22 06/16/2022 urina lysis panel , auto Unknown Analyte Negati ve Not Available [facility] [address], [place], [address], 06/16/2022 08:31:17 06/16/20 22 06/16/2022 urina lysis panel , auto Unknown Analyte Normal Not Available [facility] [address], [place], [address], 06/16/2022 08:31:17 06/16/20 22 06/16/2022 urina lysis panel , auto Unknown Analyte Normal Not Available [facility] [address], [place], [address], 06/16/2022 08:31:17 06/16/20 22 06/16/2022 urina lysis panel , auto Unknown Analyte Negati ve Not Available [facility] [address], [place], [address], 06/16/2022 08:31:17 06/16/20 22 06/16/2022 urina lysis panel , auto Unknown Analyte Negati ve Not Available [facility] [address], [place], [address], 06/16/2022 08:31:17 06/16/20 22 06/16/2022 urina lysis panel , auto Unknown Analyte Normal Not Available [facility] [address], [place], [address], 06/16/2022 08:31:17 06/16/20 22 06/16/2022 urina lysis panel , auto Unknown Analyte Normal 1 mg/dl Not Available [facility] [address], [place], [address], 06/16/2022 08:31:17 06/16/20 22 06/16/2022 urina lysis panel , auto Unknown Analyte Negati ve Not Available [facility] [address], [place], [address], 06/16/2022 08:31:17 06/16/20 22 06/16/2022 urina lysis panel , auto Unknown Analyte Negati ve Not Available [facility] [address], [place], [address], 06/16/2022 08:31:17 06/16/20 22 06/16/2022 urina lysis panel , auto Unknown Analyte Negati ve Not Available [facility] [address], [place], [address], 06/16/2022 08:31:17 06/16/20 22 06/16/2022 urina lysis panel , auto Unknown Analyte Negati ve Not Available [facility] [address], [place], [address], 06/16/2022 08:31:17 09/08/19 24 09/08/2023 urina lysis panel , auto Unknown Analyte Clean Catch Not Available [facility] [address], [place], [address], 09/08/2023 11:38:22 09/08/19 24 09/08/2023 urina lysis panel , auto Unknown Analyte Yellow Not Available [facility] [address], [place], [address], 09/08/2023 11:38:22 09/08/19 24 09/08/2023 urina lysis panel , auto Unknown Analyte Clear Not Available [facility] [address], [place], [address], 09/08/2023 11:38:22 09/08/19 24 09/08/2023 urina lysis panel , auto Unknown Analyte 1.000 Not Available [facility] [address], [place], [address], 09/08/2023 11:38:22 09/08/19 24 09/08/2023 urina lysis panel , auto Unknown Analyte 1.003- 1.035 Not Available [facility] [address], [place], [address], 09/08/2023 11:38:22 09/08/19 24 09/08/2023 urina lysis panel , auto Unknown Analyte 6.5 Not Available [facility] [address], [place], [address], 09/08/2023 11:38:22 09/08/19 24 09/08/2023 urina lysis panel , auto Unknown Analyte 5.0-8. 0 Not Available [facility] [address], [place], [address], 09/08/2023 11:38:22 03/08/09/08/2023 urina lysis panel , auto Unknown Analyte 500 Marycarmen/ul (++) Not Available [facility] [address], [place], [address], 09/08/2023 11:38:22 09/08/19 24 09/08/2023 urina lysis panel , auto Unknown Analyte Negati ve Not Available [facility] [address], [place], [address], 09/08/2023 11:38:22 09/08/19 24 09/08/2023 urina lysis panel , auto Unknown Analyte Negati ve Not Available [facility] [address], [place], [address], 09/08/2023 11:38:22 09/08/19 24 09/08/2023 urina lysis panel , auto Unknown Analyte Negati ve Not Available [facility] [address], [place], [address], 09/08/2023 11:38:22 09/08/19 24 09/08/2023 urina lysis panel , auto Unknown Analyte Negati ve Not Available [facility] [address], [place], [address], 09/08/2023 11:38:22 09/08/19 24 09/08/2023 urina lysis panel , auto Unknown Analyte Negati ve Not Available [facility] [address], [place], [address], 09/08/2023 11:38:22 09/08/19 24 09/08/2023 urina lysis panel , auto Unknown Analyte Normal Not Available [facility] [address], [place], [address], 09/08/2023 11:38:22 09/08/19 24 09/08/2023 urina lysis panel , auto Unknown Analyte Normal Not Available [facility] [address], [place], [address], 09/08/2023 11:38:22 09/08/19 24 09/08/2023 urina lysis panel , auto Unknown Analyte Negati ve Not Available [facility] [address], [place], [address], 09/08/2023 11:38:22 09/08/19 24 09/08/2023 urina lysis panel , auto Unknown Analyte Negati ve Not Available [facility] [address], [place], [address], 09/08/2023 11:38:22 09/08/19 24 09/08/2023 urina lysis panel , auto Unknown Analyte Normal Not Available [facility] [address], [place], [address], 09/08/2023 11:38:22 09/08/19 24 09/08/2023 urina lysis panel , auto Unknown Analyte Normal 1 mg/dl Not Available [facility] [address], [place], [address], 09/08/2023 11:38:22 09/08/19 24 09/08/2023 urina lysis panel , auto Unknown Analyte Negati ve Not Available [facility] [address] [facility] [address], [place], [address], 09/08/2023 11:38:22 09/08/19 24 09/08/2023 urina lysis panel , auto Unknown Analyte Negati ve Not Available [facility] [address] [facility] [address], [place], [address], 09/08/2023 11:38:22 09/08/19 24 09/08/2023 urina lysis panel , auto Unknown Analyte Trace Not Available [facility] [address] [facility] [address], [place], [address], 09/08/2023 11:38:22 09/08/19 24 09/08/2023 urina lysis panel , auto Unknown Analyte Negati ve Not Available [facility] [address] [facility] [address], [address], 09/08/2023 11:38:22 10/20/19 24 10/20/2023 urina lysis panel , auto Unknown Analyte Clean Catch Not Available [facility] [address], [address], 10/20/2023 12:39:32 10/20/19 24 10/20/2023 urina lysis panel , auto Unknown Analyte Yellow Not Available [facility] [address], [address], 10/20/2023 12:39:32 10/20/19 24 10/20/2023 urina lysis panel , auto Unknown Analyte Cloudy Not Available [facility] [address], [address], 10/20/2023 12:39:32 10/20/19 24 10/20/2023 urina lysis panel , auto Unknown Analyte 1.[address] [facility] [address] [place] [address], [address], 10/20/2023 12:39:32 10/20/19 24 10/20/2023 urina lysis panel , auto Unknown Analyte 1.003- 1.035 Not Available [facility] [address] [place] [address], [place], [address], 10/20/2023 12:39:32 10/20/19 24 10/20/2023 urina lysis panel , auto Unknown Analyte 7.[address] [facility] [address] [place] [address], [address], 10/20/2023 12:39:32 10/20/19 24 10/20/2023 urina lysis panel , auto Unknown Analyte 5.0-8. 0 Not Available [facility] [address] [place] [address], [place], [address], 10/20/2023 12:39:32 10/20/19 24 10/20/2023 urina lysis panel , auto Unknown Analyte 75 Marycarmen/ul (+) Not Available [facility] [address] [place] [address], [address], 10/20/2023 12:39:32 10/20/19 24 10/20/2023 urina lysis panel , auto Unknown Analyte Negati ve Not Available [facility] [address] [place] [address], [address], 10/20/2023 12:39:32 10/20/19 24 10/20/2023 urina lysis panel , auto Unknown Analyte Negati ve Not Available [facility] [address] [place] [address], [address], 10/20/2023 12:39:32 10/20/19 24 10/20/2023 urina lysis panel , auto Unknown Analyte Negati ve Not Available [facility] [address] [place] [address], [place], [address], 10/20/2023 12:39:32 10/20/19 24 10/20/2023 urina lysis panel , auto Unknown Analyte Negati ve Not Available [facility] [address] [place] [address], [place], [address], 10/20/2023 12:39:32 10/20/19 24 10/20/2023 urina lysis panel , auto Unknown Analyte Negati ve Not Available [facility] [address] [place] [address], [address], 10/20/2023 12:39:32 10/20/19 24 10/20/2023 urina lysis panel , auto Unknown Analyte Normal Not Available [facility] [address] [place] [address], [address], 10/20/2023 12:39:32 10/20/19 24 10/20/2023 urina lysis panel , auto Unknown Analyte Normal Not Available [facility] [address] [place] [address], [address], 10/20/2023 12:39:32 10/20/19 24 10/20/2023 urina lysis panel , auto Unknown Analyte Negati ve Not Available [facility] [address] [place] [address], [address], 10/20/2023 12:39:32 10/20/19 24 10/20/2023 urina lysis panel , auto Unknown Analyte Negati ve Not Available [facility] [address] [place] [address], [address], 10/20/2023 12:39:32 10/20/19 24 10/20/2023 urina lysis panel , auto Unknown Analyte Normal Not Available [facility] [address] [place] [address], [place], [address], 10/20/2023 12:39:32 10/20/19 24 10/20/2023 urina lysis panel , auto Unknown Analyte Normal 1 mg/dl Not Available [facility] [address] [place] [address], [place], [address], 10/20/2023 12:39:32 10/20/19 24 10/20/2023 urina lysis panel , auto Unknown Analyte Negati ve Not Available [facility] [address] [place] [address], [address], 10/20/2023 12:39:32 10/20/19 24 10/20/2023 urina lysis panel , auto Unknown Analyte Negati ve Not Available [facility] [address] [place] [address], [place], [address], 10/20/2023 12:39:32 10/20/19 24 10/20/2023 urina lysis panel , auto Unknown Analyte 50 Soren/ul Not Available [facility] [address] [place] [address], [address], 10/20/2023 12:39:32 10/20/19 24 10/20/2023 urina lysis panel , auto Unknown Analyte Negati ve Not Available [facility] [address] [place] [address], [address], 10/20/2023 12:39:32 12/14/19 24 12/14/2023 urina lysis panel , auto Unknown Analyte Clean Catch Not Available [facility] [address] [facility] [address], [place], [address], 12/14/2023 09:46:57 12/14/19 24 12/14/2023 urina lysis panel , auto Unknown Analyte Yellow Not Available [facility] [address], [place], [address], 12/14/2023 09:46:57 12/14/19 24 12/14/2023 urina lysis panel , auto Unknown Analyte Clear Not Available [facility] [address], [place], [address], 12/14/2023 09:46:57 12/14/19 24 12/14/2023 urina lysis panel , auto Unknown Analyte 1.000 Not Available [facility] [address], [place], [address], 12/14/2023 09:46:57 12/14/19 24 12/14/2023 urina lysis panel , auto Unknown Analyte 1.003- 1.035 Not Available [facility] [address], [place], [address], 12/14/2023 09:46:57 12/14/19 24 12/14/2023 urina lysis panel , auto Unknown Analyte 6.5 Not Available [facility] [address], [place], [address], 12/14/2023 09:46:57 12/14/19 24 12/14/2023 urina lysis panel , auto Unknown Analyte 5.0-8. 0 Not Available [facility] [address], [place], [address], 12/14/2023 09:46:57 12/14/19 24 12/14/2023 urina lysis panel , auto Unknown Analyte Negati ve Not Available [facility] [address], [place], [address], 12/14/2023 09:46:57 12/14/19 24 12/14/2023 urina lysis panel , auto Unknown Analyte Negati ve Not Available [facility] [address], [place], [address], 12/14/2023 09:46:57 12/14/19 24 12/14/2023 urina lysis panel , auto Unknown Analyte Negati ve Not Available [facility] [address], [place], [address], 12/14/2023 09:46:57 12/14/1912/14/2023 urina lysis panel , auto Unknown Analyte Negati ve Not Available [facility] [address], [place], [address], 12/14/2023 09:46:57 12/14/19 24 12/14/2023 urina lysis panel , auto Unknown Analyte Negati ve Not Available [facility] [address], [place], [address], 12/14/2023 09:46:57 12/14/19 24 12/14/2023 urina lysis panel , auto Unknown Analyte Negati ve Not Available [facility] [address], [place], [address], 12/14/2023 09:46:57 12/14/19 24 12/14/2023 urina lysis panel , auto Unknown Analyte Normal Not Available [facility] [address], [place], [address], 12/14/2023 09:46:57 12/14/19 24 12/14/2023 urina lysis panel , auto Unknown Analyte Normal Not Available [facility] [address], [place], [address], 12/14/2023 09:46:57 12/14/19 24 12/14/2023 urina lysis panel , auto Unknown Analyte Negati ve Not Available [facility] [address], [place], [address], 12/14/2023 09:46:57 12/14/19 24 12/14/2023 urina lysis panel , auto Unknown Analyte Negati ve Not Available [facility] [address], [place], [address], 12/14/2023 09:46:57 12/14/19 24 12/14/2023 urina lysis panel , auto Unknown Analyte Normal Not Available [facility] [address], [place], [address], 12/14/2023 09:46:57 12/14/19 24 12/14/2023 urina lysis panel , auto Unknown Analyte Normal 1 mg/dl Not Available [facility] [address], [place], [address], 12/14/2023 09:46:57 12/14/19 24 12/14/2023 urina lysis panel , auto Unknown Analyte Negati ve Not Available [facility] [address], [place], [address], 12/14/2023 09:46:57 12/14/19 24 12/14/2023 urina lysis panel , auto Unknown Analyte Negati ve Not Available [facility] [address], [place], [address], 12/14/2023 09:46:57 12/14/19 24 12/14/2023 urina lysis panel , auto Unknown Analyte Negati ve Not Available [facility] [address], [address], 12/14/2023 09:46:57 12/14/19 24 12/14/2023 urina lysis panel , auto Unknown Analyte Negati ve Not Available [facility] [facility] [address], [address], 12/14/2023 09:46:57 11/15/19 25 11/14/2024 URINE CULTU RE escherichia coli Organi sm: Escher ichia coli Not Available [facility] [address] [place] [address], [address], 11/16/2024 14:38:58 11/15/1911/16/2024 URINE CULTU RE urine culture abnormal ISOLA TE #1 COLON Y COUNT : > 100,0 00 CFU/M L Proba ble Gram Negat linn Bacil carlos. ID and sensi tivit y in progr ess. See [place] te Resul t(s) Below Esche deirdre a coli Not Available [facility] [address] [place] [address], [address], 11/16/2024 14:38:58 11/15/19 25 11/16/2024 URINE CULTU RE amox/K clav'ate(C) <=8/4 ug/mL susceptib le Not Available [facility] [address] [place] [address], [address], 11/16/2024 14:38:58 11/15/19 25 11/16/2024 URINE CULTU RE ampicillin <=8 ug/mL susceptib le Not Available [facility] [address] [place] [address], [address], 11/16/2024 14:38:58 11/15/19 25 11/16/2024 URINE CULTU RE cefazolin <=2 ug/mL susceptib le Not Available [facility] [address] [place] [address], [address], 11/16/2024 14:38:58 11/15/19 25 11/16/2024 URINE CULTU RE ceftazidime <=1 ug/mL susceptib le Not Available [facility] [address] [place] [address], [address], 11/16/2024 14:38:58 11/15/19 25 11/16/2024 URINE CULTU RE ceftriaxone <=1 ug/mL susceptib le Not Available [facility] [address] [place] [address], [address], 11/16/2024 14:38:58 11/15/19 25 11/16/2024 URINE CULTU RE cefuroxime <=4 ug/mL susceptib le Not Available [facility] [address] [place] [address], [address], 11/16/2024 14:38:58 11/15/19 25 11/16/2024 URINE CULTU RE ciprofloxaci n <=0.25 ug/mL susceptib le Not Available [facility] [address] [place] [address], [address], 11/16/2024 14:38:58 11/15/19 25 11/16/2024 URINE CULTU RE gentamicin <=4 ug/mL susceptib le Not Available [facility] [address] [place] [address], [address], 11/16/2024 14:38:58 11/15/19 25 11/16/2024 URINE CULTU RE imipenem <=1 ug/mL susceptib le Not Available [facility] [address] [place] [address], [address], 11/16/2024 14:38:58 11/15/19 25 11/16/2024 URINE CULTU RE levofloxacin <=0.5 ug/mL susceptib le Not Available [facility] [address] [place] [address], [address], 11/16/2024 14:38:58 11/15/19 25 11/16/2024 URINE CULTU RE nitrofuranto in <=32 ug/mL susceptib le Not Available [facility] [address] [place] [address], [address], 11/16/2024 14:38:58 11/15/19 25 11/16/2024 URINE CULTU RE piperacillin /inna <=16 ug/mL susceptib le Not Available [facility] [address] [place] [address], [address], 11/16/2024 14:38:58 11/15/19 25 11/16/2024 URINE CULTU RE tetracycline <=4 ug/mL susceptib le Not Available [facility] [address] [place] [address], [address], 11/16/2024 14:38:58 11/15/19 25 11/16/2024 URINE CULTU RE tobramycin <=2 ug/mL susceptib le Not Available [facility] [address] [place] [address], [address], 11/16/2024 14:38:58 05/11/16/2024 URINE CULTU RE trimeth/sulf a <=2/38 ug/mL susceptib le Not Available [facility] [address] [facility], [place], [address], 11/16/2024 14:38:58 11/15/19 25 11/14/2024 urina lysis panel , auto Unknown Analyte Clean Catch Not Available [facility] [address], [place], [address], 11/14/2024 08:49:57 11/15/1911/14/2024 urina lysis panel , auto Unknown Analyte Yellow Not Available [facility] [address], [place], [address], 11/14/2024 08:49:57 11/15/1911/14/2024 urina lysis panel , auto Unknown Analyte Clear Not Available [facility] [address] [place] [address] [address], [address], 11/14/2024 08:49:57 11/15/19 25 11/14/2024 urina lysis panel , auto Unknown Analyte 1.000 Not Available [facility] [address], [address], 11/14/2024 08:49:57 11/15/19 25 11/14/2024 urina lysis panel , auto Unknown Analyte 1.003 - 1.030 Not Available [facility] [address], [address], 11/14/2024 08:49:57 11/15/19 25 11/14/2024 urina lysis panel , auto Unknown Analyte 7.0 Not Available [facility] [address], [place], [address], 11/14/2024 08:49:57 11/15/19 25 11/14/2024 urina lysis panel , auto Unknown Analyte 5.0 - 8.0 Not Available [facility] [address] [facility] [address], [place], [address], 11/14/2024 08:49:57 11/15/19 25 11/14/2024 urina lysis panel , auto Unknown Analyte Negati ve Not Available [facility] [address] [facility] [address], [place], [address], 11/14/2024 08:49:57 11/15/19 25 11/14/2024 urina lysis panel , auto Unknown Analyte Negati ve Not Available [facility] [address] [facility] [address], [place], [address], 11/14/2024 08:49:57 11/15/19 25 11/14/2024 urina lysis panel , auto Unknown Analyte POSITI VE (Abnor mal) Not Available [facility] [address] [facility] [address], [place], [address], 11/14/2024 08:49:57 11/15/19 25 11/14/2024 urina lysis panel , auto Unknown Analyte Negati ve Not Available [facility] [address] [facility] [address], [place], [address], 11/14/2024 08:49:57 11/15/19 25 11/14/2024 urina lysis panel , auto Unknown Analyte Negati ve Not Available [facility] [address], [place], [address], 11/14/2024 08:49:57 11/15/19 25 11/14/2024 urina lysis panel , auto Unknown Analyte Negati ve Not Available [facility] [address], [place], [address], 11/14/2024 08:49:57 11/15/19 25 11/14/2024 urina lysis panel , auto Unknown Analyte Normal Not Available [facility] [address], [place], [address], 11/14/2024 08:49:57 11/15/19 25 11/14/2024 urina lysis panel , auto Unknown Analyte Normal Not Available [facility] [address], [place], [address], 11/14/2024 08:49:57 11/15/19 25 11/14/2024 urina lysis panel , auto Unknown Analyte Negati ve Not Available [facility] [address], [place], [address], 11/14/2024 08:49:57 11/15/19 25 11/14/2024 urina lysis panel , auto Unknown Analyte Negati ve Not Available [facility] [address], [place], [address], 11/14/2024 08:49:57 11/15/19 25 11/14/2024 urina lysis panel , auto Unknown Analyte Normal Not Available [facility] [address] [facility] [address], [place], [address], 11/14/2024 08:49:57 11/15/1911/14/2024 urina lysis panel , auto Unknown Analyte Normal Not Available [facility] [address] [place] [address] [address], [place], [address], 11/14/2024 08:49:57 11/15/19 25 11/14/2024 urina lysis panel , auto Unknown Analyte Negati ve Not Available [facility] [address] [place] [address] [address], [place], [address], 11/14/2024 08:49:57 11/15/19 25 11/14/2024 urina lysis panel , auto Unknown Analyte Negati ve Not Available [facility] [address], [place], [address], 11/14/2024 08:49:57 11/15/1911/14/2024 urina lysis panel , auto Unknown Analyte 50 Soren/uL Not Available [facility] [address], [place], [address], 11/14/2024 08:49:57 11/15/1911/14/2024 urina lysis panel , auto Unknown Analyte Negati ve Not Available [facility] [address], [address], 11/14/2024 08:49:57 Result Notes None recorded. Problems Name Problem SNOMED Code Status Onset Date Resolution Date Notes Provider Name and Address Organization Details Recorded Time Urinary tract infectious disease 45423347 Active 2016 SACHIN OAKES JR, MD [address] [place], [address], [facility] 7 13:33:15 Retention of urine 970650045 Active 2016 SACHIN OAKES JR, MD [facility] [place], [address], [facility] 7 13:33:17 Recurrent urinary tract infection 843849418 Active 2016 SACHIN OAKES JR, MD [facility] [place], [address], [facility] 7 13:33:19 Maintenance of device Active 2021 SACHIN OAKES JR, MD [facility] [place], [address], [facility] 2 12:15:21 Bacteriuria 09970850 Active 2023 SACHIN OAKES JR, MD [facility] [place], [address], [facility] 4 09:39:23 Urethral stenosis 945376220 Active 2023 SACHIN OAKES JR, MD [facility] [place], [address], [facility] 4 12:43:46 Problem Notes None recorded. Procedures Surgical History Date Name Laterality Status Provider Name and Address Organization Details Recorded Time 024 Urethral Dilation, Female completed SACHIN OAKES JR, MD [facility] [place], [address], [facility] 10/20/2023 12:43:31 024 Cystoscopy - female completed SACHIN OAKES JR, MD [facility] [place], [address], [facility] 10/20/2023 12:43:11 022 Peripheral Neurostimulator Analysis completed Sugar Zaragoza [facility] 03/31/2022 10:26:42 022 Unlisted px posterior segmnt completed lAycia Mitchell [facility] 04/01/2022 09:42:53 017 Peripheral Neurostimulator Analysis completed Sugar Zaragoza [facility] 07/15/2016 12:44:31 017 Post Void Residual; Catheter completed Sugar Zaragoza [facility] 07/15/2016 12:32:04 cholecystectomy completed Alycia Adair [facility] 04/01/2022 09:43:06 Gastric bypass for obesity completed Alycia Mitchell [facility] 04/01/2022 09:43:20 Imaging Results None recorded. Procedure Notes None recorded. Medical Equipment None Reported. Allergies Allergen ID Allergen Name Allergen Category Reaction Reaction Severity Criticality Documentation Date Start Date Code Code System Note Provider Name and Address Organization Details Recorded Time 357026 Bactrim medicatio n Not available Not available Not available 04/01/2022 75934 9 RxNorm Alycia Mitchell raheem [facility] 09:41:47 Medications Name Sig Start Date [...] Updated DateTime 09/08/2023 170.18 cm 42.6 kg/m2 916086.12 g Prosper Farooq [facility] 09/08/2023 15:58:45 Date Recorded Body height Body mass index (BMI) Body weight Provider Name and Address Organization Details Last Updated DateTime 11/14/2024 170.18 cm 43.7 kg/m2 255133.27 g Samara Weiss [facility] 11/14/2024 08:58:16 Date Recorded Body height Body mass index (BMI) Body weight Provider Name and Address Organization Details Last Updated DateTime 12/14/2023 170.18 cm 42.6 kg/m2 889042.12 g Meghana Zaragoza [facility] 12/14/2023 09:46:30 Social History Question Answer Notes LastModified by Organizat ion Details LastModified Time Tobacco Smoking Status Former Smoker Max maciel [facility] 07/15/2016 12:19:07 Marital Status Informati on not available 07/15/2016 What Was The Date Of Your Most Recent Tobacco Screening? 11/14/2024 Information not available 11/14/2024 What Is Your Relationship Status? [email or web address] Information not available 04/01/2022 Sex: Female Functional [...] available 07/03 12:18:56 Medical History Condition Response Anxiety Disorder Y Arthritis Y Hypertension Y Depression Y Gynecological HistoryNo gynecological history recorded. Obstetrics History GPAL:G 0 P 0 0 0 0 Past Encounters Encounter ID Performer Location Encounter Start Date Encounter Closed Date Diagnosis/Indication Diagnosis SNOMED-CT Code Diagnosis ICD10 Code Diagnosis Note [id number] MD MAGNOLIA BARBA JR, [facility] [address] [address] 07/15/2016 11:56:24 07/18/2016 09:57:39 Urinary tract infectious disease 44297185 N39.0 Retention of urine 90158 4002 R33.9 Recurrent urinary tract infection 640165574 N39.0 [id number] SACHIN OAKES JR, MD [facility] [address] [place] [address] 03/31/2022 08:53:59 03/31/2022 12:53:54 Recurrent urinary tract infection 427865995 N39.0 Retention of urine 62438 4002 R33.9 Maintenance of device 13 0346083 Z45.1 [id number] SACHIN OAKES JR, MD SURGERY SCHEDULE [address] [place] [address] 04/29/2022 13:38:30 04/29/2022 13:41:08 [id number] SACHIN OAKES JR, MD SURGERY SCHEDULE [address] [place] [address] 05/13/2022 12:05:51 05/13/2022 12:06:20 [id number] SACHIN OAKES JR, MD [facility] [address] [place] [address] 06/16/2022 08:16:10 06/16/2022 14:10:15 Maintenance of device 389141396 Z45.1 Retention of urine 48003 4002 R33.9 [id number] SACHIN OAKES JR, MD [facility] [address] 09/08/2023 11:11:51 09/08/2023 13:06:30 Recurrent urinary tract infection 212391651 N39.0 ' Bacteriuria 18346334 R82 .71 Maintenance of device 13 4250078 Z45.1 [id number] SACHIN OAKES JR, MD SURGERY SCHEDULE [address] [place] [address] 10/20/2023 10:42:58 10/20/2023 10:43:41 Recurrent urinary tract infection 691740165 N39.0 ' 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 [id number] SAHCIN OAKES JR, MD MAGNOLIA [facility] [address],[place] [place] [address] 0 12/14/2023 09:18:06 12/18/2023 04:02:52 Recurrent urinary tract infection 261372123 N39.0 ' Bacteriuria 09122837 R82 .71 Retention of urine 17742 4002 R33.9 [id number] SACHIN OAKES JR, MD MAGNOLIA [facility] [address] [place] [address] 0 11/14/2024 08:28:52 11/14/2024 09:24:34 Acute urinary tract infection 241021186 N39.0 Maintenance of device 13 7109527 Z45.1 Urge incon tinence of urine 22250177 N39.41 Health Concerns Section Related Observation LastModified by Organization Detai ls LastModified Time None Recorded Concern Status LastModified by Organization Details LastModified Time None Recorded Advance Directives Directive None Recorded Payers Insurance Date Sequence Insurance Name Policy Number Policy Casiano Covered Member ID Casiano Member ID Guarantor Name 09/08/2023 2 [place] Olimpia Paul [id number] Olimpia Paul 11/26/2024 1 [employer] (MEDICARE REPLACEMENT/ ADVANTAGE - PPO) Olimpia Paul [id number] Olimpia Paul 09/08/2023 2 [place] Olimpia Paul [id number] Olimpia Paul 11/07/2023 2 [facility] LIFE INSURANCE - SENIORS CHOICE (SECONDARY TO MEDICARE) Olimpia Paul [id number] Olimpia Paul Notes Date Note Type Note Provider Name and Address Organization Details Recorded Time 06/16/2022 text/html The patient is in today for followup of incomplete bladder emptying. She has a history of InterStim [id number] for urinary retention and incomplete emptying. Patient underwent Axonics replacement with nonrechargeable generator May 13, 2022 Patient is voiding well. SACHIN OAKES JR, MD [address] [place] [address] [place], [address], [facility] 06/19/2022 18:33:12 09/08/2023 text/html The patient is in today for followup of incomplete bladder emptying. She has a history of InterStim [id number] for urinary retention and incomplete emptying. Patient underwent Axonics replacement with nonrechargeable generator May 13, 2022 Patient is voiding well. Reports episodes of malodorous urine and bacteruria without other symptoms of infection. Has used multiple antibiotics. Noticed trend since May 2023. SACHIN OAKES JR, MD [address] [place] [address], [address], [facility] 09/10/2023 09:39:55 10/20/2023 text/html The patient is in today for followup of incomplete bladder emptying. She has a history of InterStim [id number] for urinary retention and incomplete emptying. Patient underwent Axonics replacement with nonrechargeable generator May 13, 2022 Patient is voiding well. Reports episodes of malodorous urine and bacteruria without other symptoms of infection. Has used multiple antibiotics. Noticed trend since May 2023. SACHIN OAKES JR, MD [address] [place] [address] [place], [address], [facility] 10/20/2023 12:44:14 12/14/2023 text/html The patient is in today for followup of incomplete bladder emptying. She has a history of InterStim [id number] for urinary retention and incomplete emptying. Patient underwent Axonics replacement with nonrechargeable generator May 13, 2022 Cystoscopy October 24 is normal , Urethral dilation also performed that day. Patient is voiding well. Reports episodes of malodorous urine and bacteruria without other symptoms of infection. Has used multiple antibiotics. Noticed trend since May 2023. SACHIN OAKES JR, MD [address] [place] [address], [address], [facility] 12/17/2023 11:42:59 11/14/2024 text/html The patient is [...] emptying. She has a history of InterStim [id number] for urinary retention and incomplete emptying. Patient underwent Axonics replacement with nonrechargeable generator May 13, 2022 Cystoscopy October 24 is normal , Urethral dilation also performed that day. SACHIN OAKES JR, MD [address] [place] [address], [address], [facility] 11/25/2024 15:47:51 OBGyn Episode No OBEpisode recorded.
--- OUTSIDE RECORDS SUMMARY | 2025-01-25 11:42 | XMS_ITS | Encounter Summary ---
Author Organization [facility] Address [address] [place] [address] Care Team Providers Care Ob Scrub Tech Name Role Phone Vy Ryan APRN Primary Care Provider +1- [phone] Encounter Details Date Type Department Care Team (Latest Contact Info) Description 01/23/2025 Travel Social History Tobacco Use Types Packs/Day Years Used Date Smoking Tobacco: Never Assessed Comments Unknown Sex and Gender Information Value Date Recorded Sex Assigned at Not on file Legal Sex Female 4:33 PM EDT Gender Identity Not on file Sexual Orientation Not on file documented as of this encounter Plan of Treatment Upcoming Encounters Date Type Department Care Team (Late st Contact Info) Description 01/30/2025 7:00 AM EDT Appointment [facility] NUCLEAR MEDICINE [address] [place] [address] 01/30/2025 12:45 PM EDT Hospital Encounter [facility] OR [address] [facility] [address] Neo Ravi MD [address] [facility] [place] [address] 01/30/2025 12:45 PM EDT - 01/30/2025 3:28 PM EDT Surgery [facility] OR [address] [place] [address] Neo Ravi MD [address] [facility] [place] [address] WIDE EXCISION LEFT MELANOMA BACK Scheduled Procedures Name Priority Associated Diagnoses Date/Ti me WIDE LOCAL EXCISION MELANOMA TRUNK/BACK 01/30/2025 12:45 PM EDT SENTINEL NODE BIOPSY 025 12:45 PM EDT documented as of this encounter Visit Diagnoses Not on filedocumented in this encounter Care Teams Ob Scrub Tech Relationship Specialty Start Date End Date Vy Ryan APRN [address] [place] [address] PCP - General Nurse Practitioner 01/23/25 documented as of this encounter
--- OUTSIDE RECORDS SUMMARY | 2025-01-25 11:42 | XMS_ITS | Clinical Summary ---
[facility] Address [address] [place] [address] Care Team Providers Care Sample Cutter Name Role Phone Vy Ryan APRN Primary Care Provider +1- [phone] Encounters Date Type Department Care Team Description 01/23/2025 8:30 AM EDT Pre-Admission Testing [facility] PREADMISSION T [address] [place] [address] 01/23/2025 Travel from Last 3 Months Social History Tobacco Use Types Packs/Day Years Used Date Smoking Tobacco: Never Assessed Comments Unknown Sex and Gender Information Value Date Recorded Sex Assigned at Not on file Legal Sex Female 4:33 PM EDT Gender Identity Not on file Sexual Orientation Not on file Plan of Treatment Upcoming Encounters Date Type Department Care Team (Late st Contact Info) Description 01/30/2025 7:00 AM EDT Appointment [facility] NUCLEAR MEDICINE [address] [place] [address] 01/30/2025 12:45 PM EDT Hospital Encounter [facility] OR [address] [place] [address] Neo Ravi MD [address] [facility] [address] [place] [address] 01/30/2025 12:45 PM EDT - 01/30/2025 3:28 PM EDT Surgery [facility] OR [address] [place] [address] Neo Ravi MD [address] [facility] [address] [place] [id number] WIDE EXCISION LEFT MELANOMA BACK Scheduled Procedures Name Priority Associated Diagnoses Date/Ti me WIDE LOCAL EXCISION MELANOMA TRUNK/BACK 01/30/2025 12:45 PM EDT SENTINEL NODE BIOPSY 025 12:45 PM EDT Health Maintenance Due Date Last Done Comments DXA SCAN 1960 Pneumococcal Vaccine 50+ (1 of 2 - PCV) 1978 COLOGUARD 01/11/2004 COLON CANCER SCREENING 5 YEA R SIGMOIDOSCOPY 01/11/2004 CT COLONOGRAPHY 01/11/2004 FECAL OCCULT BLOOD TEST 01/11/2004 FIT Testing (1 year) 01/11/2004 TDAP/TD VACCINES (2 - Tdap) 11/08/2007 11/07/1997 ZOSTER VACCINE (1 of 2) 2009 COVID-19 Vaccine (3 - 2023-2 5 season) 2024 04/07/2021, 03/10/2021 ANNUAL WELLNESS VISIT 01/22/2025 HEPATITIS C SCREENING 01/22/2025 INFLUENZA VACCINE 04/02/2025 MAMMOGRAM 05/12/2025 05/12/2023, 05/03, 08/13/2019, Additional history exists COLONOSCOPY 06/15/2028 06/15/2018 COLORECTAL CANCER SCREENING 06/15/2028 Insurance MEDICARE ADVANTAGE PPO Care Teams Sample Cutter Relationship Specialty Start Date End Date Vy Ryan APRN [address] [place] [address] PCP - General Nurse Practitioner 01/23/25
[2025-01-25 12:13] LABS: Hematocrit 34.6 % (37.0-47.0); Hemoglobin 11.5 g/dL (12.2-16.2); Immature Granulocytes % 0.4 %; Mean Corpuscular HGB Conc 33.2 g/dL (31.8-35.4); Mean Corpuscular Hemoglobin 30.8 pg (27.0-31.2); Mean Corpuscular Volume 92.8 fl (81-99); Nucleated Red Blood Cells % 0 %; Platelet Count 258 K/mm3 (142-424); Red Blood Count 3.73 M/mm3 (4.20-5.40); Red Cell Distribution Width-SD 45.1 fL; White Blood Count 7.5 K/mm3 (4.8-10.8)
[2025-01-25 13:13] LABS: Chloride 106 mmol/L (98-107); Potassium 3.9 mmoL/L (3.5-5.1); Sodium 135 mmol/L (136-145)
[2025-01-25 13:16] LABS: Anion Gap 7.9 mEq/L (5-15); Blood Urea Nitrogen 22 mg/dl (7-17); Carbon Dioxide 25 mmol/L (22.0-30.0); Creatinine,Serum 0.70 mg/dl (0.52-1.04); Estimated Glomerular Filt Rate 84 ml/min (>60); GFR (African American) 101 ML/MIN (>60)
[2025-01-25 13:17] LABS: Calcium 9.7 mg/dl (8.4-10.2); Glucose 95 mg/dl (74-100)
== END 2025-01-25 23:59 | disposition home or self-care (01) ==
LOC: LAB 11:39
PROVIDERS: PCP Nurse Practitioner; Visit Provider Internal Medicine
DX: I25.10 Atherosclerotic heart disease of native coronary artery without angina pectoris (principal)
CPT/HCPCS: 36415; 80048; 85025